=== PATIENT | male | born 1965 | race Caucasian/White ===

== ENCOUNTER 2019-03-27 12:04 | Outpatient (RCR) | payer MEDICAID, SELFPAY ==
[2019-03-27 12:36] LABS: Basophils % 0.5 %; Eosinophils # 0.1 10^3/uL (0.0-0.8); Eosinophils % 2.5 %; Hemoglobin 14.1 g/dL (11.7-16.6); Lymphocytes # 0.7 10^3/uL (0.8-4.8); Lymphocytes % 15.2 %; Mean Corpuscular HGB Conc 33.6 g/dL (30.0-36.0); Mean Corpuscular Hemoglobin 28.3 pg (28.0-34.0); Mean Corpuscular Volume 84.2 fL (80-94); Mean Platelet Volume 9.2 fL (7.4-10.4); Monocytes # 0.5 10^3/uL (0.2-0.9); Monocytes % 11.8 %; Neutrophils # 3.1 10^3/uL (1.8-7.7); Neutrophils % 69.8 %; Nucleated Red Blood Cells % 0 %; Platelet Count 267 10^3/cmm (130-400); Red Blood Count 4.99 10^6/uL (4.1-5.3); Red Cell Distribution Width 11.9 % (12.1-15.1); White Blood Count 4.4 10^3/uL (4.0-10.0)
[2019-03-27 12:56] LABS: Alanine Aminotransferase 26 U/L (0-41); Albumin Level 4.4 g/dL (3.5-5.2); Alkaline Phosphatase 135 IU/L (40-130); Anion Gap 13.4 (5-19); Aspartate Amino Transferase 24 U/L (0-40); Blood Urea Nitrogen 22 mg/dL (6-20); Calcium 9.8 mg/Dl (8.6-10.0); Carbon Dioxide 28 mmol/L (22-29); Chloride 101 mmol/L (98-107); Ferritin 514 ng/mL (30-400); Glomerular Filtration Rate 100.7 mL/min (90-130); Glucose 113 mg/dL (74-109); Iron 72 ug/dL (59-158); Lactate Dehydrogenase 203 U/L (135-225); Potassium 4.4 mmol/L (3.5-5.1); Sodium 138 mmol/L (136-145); Total Bilirubin 0.4 mg/dL (0.15-1.2); Total Iron Binding Capacity 240 mg/dL; Total Protein 6.4 g/dL (6.6-8.7); Unsaturated Iron Binding 168 ug/dL (112-347)
[2019-03-27 15:41] LABS: Thyroid Stimulating Hormone 1.85 uIU/mL (0.27-4.20); Vitamin B12 432 pg/mL (232-1245)
[2019-03-27 16:58] LABS: Erythrocyte Sedimentation Rate 12 mm/hr (0-10)
--- NOTE | 2019-04-02 10:42 | ONC FU_ITS ---
Dr. Stubbs Patient Follow-Up Note Patient: Kannan London Unit #: [id number]: 1965 Dicatated By: Leonard Stubbs M.D.Date of Visit:Mar 27, 2019 Onc Med Follow-up/Prog Note Chief Complaint: Lymphoma. 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 He had presented in July 2017 with a several month history of increasing fatigue, shortness of breath, dizziness, and muscle cramping. He was found to be severely anemic, hemoglobin 5.6 g. He also was reported to be mildly neutropenic, and his LDH level was slightly elevated at 278 U/L. He was admitted to the hospital and transfused packed red blood cells. His abdominal ultrasound showed enlarged spleen measuring 17.8 cm. There was no lymphadenopathy noted. His further evaluation included protein electrophoresis which showed IgM monoclonal gammopathy quantitating at 1.13 g/dL. He underwent bone marrow aspiration/biopsy on 08/24/2017. The aspirate was dry. The biopsy showed diffuse involvement by small round to oval lymphocytes with scant cytoplasm, consistent with B cell lymphoma. By IHC the neoplastic cells were positive for Bcl-2 and CD20. They were negative for Bcl-6, CD10, CD23. CD68, cyclin-D1, and Sox-11. The Ki-67 proliferative index was low. A peripheral blood flow cytometry study showed B cell chronic lymphoproliferative disorder of small size, negative for CD5, CD10, and CD11c, and positive for CD19, CD20, and CD22. A few were CD23 positive. There were positive for kappa light chain. Overall, the findings were felt most consistent with low-grade B-cell lymphoma of small size, favoring splenic lymphoma with villous lymphocytes. He had further staging with PET/CT on 09/13/2017. It showed a few scattered lymph nodes in the neck, axillary regions, retroperitoneum, pelvis, and inguinal regions, none with increased activity. His further laboratory evaluation included negative serology for HIV, hepatitis B, and hepatitis C. He had a follow-up visit with Dr. Roman on 09/15/2017. He was recommended to undergo treatment with weekly rituximab for 8 weeks. After doing some his own research online, he requested a second opinion evaluation. Dr Stubbs had seen him initially on 10/20/2017. Ultimately he did agree to undergo treatment with rituximab. In the meantime, his repeat CBC on 10/27/2017 showed his hemoglobin back down to 6.3 g, and he was given another transfusion of 2 units of PRBC. On 11/09/2017 he began his first weekly infusion of Rituxan at 375 mg/m??? by IV infusion. He had a significant reaction during the infusion, including fever and severe chills and shaking. The chills resolved with IV Demerol, and he was able to complete the infusion. He was given premedication with 60 mg of Solu-Medrol IV prior to is week 2 rituximab on 11/16/2017. He had no acute reaction, but he subsequently developed significant back pain and other symptoms. His week 3 treatment was delayed, as his blood counts had dropped significantly, including a decrease in the hemoglobin level to 5.6 g. He was transfused 3 units of PRBC. He continued with his 3rd dose of rituximab on 11/30/2017. He was premedicated with 30 mg of Solu-Medrol. He had a mild infusion reaction, which resolved with IV Demerol. He was able to continue with week 4 rituximab on 12/07/2017 and with week 5 treatment on 12/14/2017. At that point his hemoglobin had dropped to 7.3 g, and I did arrange for a transfusion of PRBC the following day. He was still having chills and shaking, but with the shaking predominantly in his right arm. He eventually was able to complete the transfusion and the shaking was able to be controlled with a combination of Demerol and Ativan. He was then seen for followup on 12/21/2017 and at that point I opted to put his treatment on hold. During his subsequent follow-up he continued to have moderately severe anemia and mild thrombocytopenia, and he also continued to have significant fatigue. We were finally able to get him approved for Medicaid in March. He then had restaging PET/CT on 04/29/2018. It showed prominent multiple lymph nodes in the head/neck region, bilateral axilla, and abdominal/retroperitoneal territories with low-grade activity, consistent with viable lymphoma. The largest measured up to 1.8 cm. There was also splenomegaly with uptake consistent with splenic infiltration. Repeat bone marrow aspiration/biopsy on 05/04/2018 showed packed bone marrow with almost complete effacement by a small lymphocyte proliferation. Flow cytometry showed 21% clonal B cells which with lack of CD5 and CD10 and with CD19 and CD20 both moderately positive. HLA-DR was moderately positive, as was kappa CD19. By IHC the malignant cells were positive for CD20 and BCL-2. CD5 and CD10 were predominantly negative. BCL-6 and cyclin D1 also were negative. The findings were felt to be consistent with low-grade B-cell lymphoma of small size with the differential including splenic lymphoma with villous lymphocytes, lymphoplasmacytic B-cell lymphoma, and marginal zone lymphoma. His repeat laboratory studies from 05/24/2018 showed hemoglobin down to 6.4 g with white blood cell count 4500 and platelet count 99,000. The differential showed 40% neutrophils, 52% lymphocytes, 5% monocytes, and 1% eosinophils. Sedimentation rate was greater than 120 mm/hour. His chem profile showed normal renal function with BUN 15 and creatinine 1.0 mg/dL. The liver enzymes were normal. LDH was mildly elevated at 253/225 U/L. The protein electrophoresis reported the total protein was 6.8, albumin was 3.3, alpha-1???globulin was 0.5, alpha???2???globulin 0.8, that it globulin 0.5, gamma globulin 0.5, ABD PRO was 1.1. The SPEP, and was restricted band (M???spike) migrating into the beta 2 region. Immunofixation reported IgM Monoclonal band present. With the drop in the hemoglobin, he was given a transfusion of 2 units of PRBC. In June 2018 he was seen by Dr. Sabino Guadalupe at [facility] for a second opinion evaluation. He then underwent left axillary lymph node biopsy on 07/24/2018. 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 With those findings, he was recommended to undergo a course of treatment with bendamustine/rituximab. His medical history is otherwise significant primarily for bipolar disorder and associated depression. He apparently has had evidence of pulmonary granulomas. His only prior surgery was a vasectomy. He had smoked for a short time in college, and he also had some alcohol use during that time. He has had none since then. INTERIM HISTORY: He began cycle 1 of bendamustine/rituximab on 09/26/2018. He experienced no acute toxicity with the initial infusion of rituximab. He then slept for the next 3 days. He thinks that may have been steroid related. He had no fever or chills, but he did have 3 or 4 drenching night sweats. At his scheduled 4-week follow-up visit he was feeling a little better, though his hemoglobin was still low at 8.4 g. His white blood cell count was still low at 2400 with ANC 1800, and his treatment was put on hold. As of his follow-up visit on 12/19/2018 his hemoglobin up to 12 g, but with no significant improvement in the white blood cell count. at that point he had developed significant neuropathy symptoms in his hands and feet. As there was no indication of progression of the lymphoma, I opted to just continue observation/expectant management. He is seen for a follow-up visit. He continues to complain that he has poor energy. He is working, but he is having to adjust his work schedule, and he has to take naps every day. His appetite is better. He has gained more weight. He has had fever recently with a dental infection, but he is seeing a dentist now to get that taken care of. He also has had a head cold. He has just occasional cough. He does not complain of shortness of breath or chest pain. He is not having any night sweating. He has developed fairly generalized joint pain, and he continues to have significant neuropathy in his hands and feet. He thinks it has continued to gradually worsen. Medications: Acetaminophen Extra Strength 1 Tablet (of 500 mg) Oral PRN, Depakote 1 Tablet (of 500 mg) Tablet, enteric coated Oral b.i.d., Ibuprofen 2 Tablet (of 200 mg) Oral t.i.d. PRN, Wellbutrin 1 Tablet (of 75 mg) Oral daily Allergies: Mitchell Review of Systems: Constitutional - His energy is not good. He is working, but he has had to adjust his work schedule, and he has to take naps. His appetite is good. He has gained more weight. He recently had fever with a dental infection. He is not having night sweating. ECOG score is 1, ENMT - He has recently had a head cold. He still has sore mouth. No sore throat or difficulty swallowing, Hematologic/Lymphatic - No abnormal bruising or bleeding, Respiratory - No shortness of breath. He has occasional cough. No pleuritic pain or hemoptysis, Cardiovascular - No angina pain. No palpitations, Gastrointestinal - He had nausea on one occasion. No heartburn or acid reflux. His bowel function has been better since he stopped drinking coffee. No blood in the stool or black stools, Genitourinary (M) - No dysuria or hematuria. No urinary frequency. No urgency or incontinence, Musculoskeletal - He has fairly generalized joint pain, Integumentary - No skin complications, Neurologic - He has had some headaches. No dizziness. He has numbness and tingling in his hands and feet, Psychiatric - He has bipolar disorder. He does have some depression. He is managing it adequately. He has been sleeping better. Vital Signs: Performed on Mar 27, 2019 13:46 Height - 70.50 in Weight - 213.0 lbs (HIGH) BSA - 2.16 sq.m BMI - 30.13 (HIGH) Temperature - 97.9 F (LOW) Pulse - 57 /min (LOW) Respiration - 18 /min BP - 157/79 mm(hg) (HIGH) O2 Sat - 98 % Pain - 3 Physical Examination: Constitutional - He looks pretty good generally, Eyes - Sclerae nonicteric. Conjunctivae clear, ENMT - No lesions noted in the oral cavity, Hematologic/Lymphatic - No cervical, clavicular, or axillary adenopathy, Respiratory - Lungs are clear with good air movement bilaterally, Cardiovascular - Heart rhythm is regular. There is a II/ systolic murmur. There is no gallop or rub noted, Abdomen - Soft. Liver is not enlarged. Spleen is not palpable. There is no abdominal mass or ascites noted. There is no inguinal adenopathy noted, Extremities - No edema. Pedal pulses are palpable bilaterally, Neurologic - No focal neurologic deficits noted. Lab/Imaging: Test performed on Dec 18, 2018 09:10 Ferritin 551.0 ng/ml Iron 66 ug/dL % Iron Saturation 29.8 % Test performed on Dec 11, 2018 09:10 WBC 2.4 /cmm RBC 3.79 10 6/cmm HGB 11.7 g/dl HCT 35.2 % MCV 92.8 /cmm MCH 30.9 pg MCHC 33.3 g/dl RDW 15.0 % Platelet Count 170 10 3/uL MPV 7.3 fl Neutrophils 1.6 10 3/cmm Lymphocytes 0.7 10 3/cmm Monocytes 0.1 10 3/cmm Neutrophil % 68.2 % Lymphocyte % 28.2 % Monocyte % 3.6 % Test performed on Nov 21, 2018 09:30 LDH (Total) 275 U/L Sodium 140 mmol/L Potassium 4.2 mmol/L Chloride 103 mmol/L CO2 26 mmol/L Anion Gap 15.2 BUN 16 mg/dL Creatinine 0.8 mg/dL Cr Clearance (Est) 134.2300 mL/min eGFR 100.7 mL/min Glucose 125 mg/dl Calcium 9.1 mg/dL Protein, Total 6.9 g/dL Albumin 4.5 g/dL Globulin 2.4 gm/dL Bilirubin, Total 0.5 mg/dL ALT (SGPT) 21 U/L AST (SGOT) 29 U/L Alkaline Phosphatase 131 U/L Eosinophils 0.0 10 3/cmm Basophils 0.0 10 3/cmm Eosinophil % 0.6 % Basophils % 0.8 % Impression: 1. 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 He had associated IgM monoclonal gammopathy,splenomegaly, and mild peripheral lymphadenopathy. 2. He had associated anemia, severe enough to require transfusion. 3. His medical history is otherwise significant for bipolar disorder with associated depression. He began treatment with weekly rituximab in October 2017. Between 11/09/2017 and 12/14/2017 he completed a total of 5 infusions of rituximab. It was stopped at that point because of multiple toxicities with it, including severe chills and shaking, fever, back pain, and persistent pancytopenia. Overall, he tolerated it very poorly, and there was no evidence of response or clinical benefit. His restaging PET/CT on 04/29/2018 showed prominent lymph nodes in multiple areas with low grade activity consistent with viable lymphoma. Also noted was splenomegaly with uptake consistent with splenic infiltration. Repeat bone marrow aspiration/biopsy on 05/04/2018 showed packed bone marrow with almost complete effacement by small lymphocyte proliferation. The findings were consistent with low-grade B-cell lymphoma small size, positive for CD19 and CD20, predominantly negative for CD5 and CD10, and negative for cyclin D1. In June 2018 he was seen at [facility] for a second opinion evaluation. He then underwent left axillary lymph node biopsy on 07/24/2018. Pathology was consistent with marginal zone lymphoma. With that finding, he was recommended to undergo a course of treatment with bendamustine/rituximab. He began cycle 1 of bendamustine/rituximab 09/26/2018. Experienced multiple side effects, though overall the treatment was tolerable. At his 4-week follow-up visit he was still moderately anemic. His treatment was put on hold due to neutropenia. During subsequent follow-up, there has been significant improvement in the blood counts. At this point he continues to have moderately severe neutropenia, but his hemoglobin is back up to normal at 14 g, and his platelet count also is normal. Unfortunately, he continues to have significant symptoms including fatigue, generalized joint pain, and peripheral neuropathy. I have to assume this is treatment related, though certainly unusual in association with bendamustine/Rituxan, particularly with just one cycle. Plan: He will continue on observation/symptomatic management. I have recommended a trial of therapy with gabapentin. He has been reluctant to take medication, but he indicates he is willing to try it at a low dosage. He will continue to take ibuprofen for the joint pain. I will see him again in 3 months, or sooner as needed. Signed By: Leonard Stubbs M.D. <<Signature on File>>
== END 2019-04-20 23:59 | disposition home or self-care (01) ==
LOC: ONCMED 12:04
PROVIDERS: Family Provider Family Medicine; PCP Family Medicine; Visit Provider Internal Medicine Medical Oncology
DX: C83.04 Small cell B-cell lymphoma, lymph nodes of axilla and upper limb (principal); R53.83 Other fatigue; G62.9 Polyneuropathy, unspecified; F32.9 Major depressive disorder, single episode, unspecified; M25.50 Pain in unspecified joint; Z92.25 Personal history of immunosuppression therapy; Z87.891 Personal history of nicotine dependence
CPT/HCPCS: 36415; 80053; 82607; 82728; 83540; 83550; 83615; 84443; 85025; 85651; 99214

== ENCOUNTER 2019-05-29 09:10 | Outpatient (CLI) | payer MEDICAID, SELFPAY ==
[2019-05-29 16:56] LABS: Alanine Aminotransferase 27 U/L (0-41); Albumin Level 4.4 g/dL (3.5-5.2); Alkaline Phosphatase 116 IU/L (40-130); Anion Gap 19.5 (5-19); Blood Urea Nitrogen 18 mg/dL (6-20); Calcium 10.2 mg/dL (8.5-10.5); Carbon Dioxide 28 mmol/L (22-29); Chloride 100 mmol/L (98-107); Globulin 2.3 g/dL (1.3-4.6); Glomerular Filtration Rate 100.7 mL/min (90-130); Glucose 46 mg/dL (65-115); Osmolality Calculated 292 mOsm/kg (285-295); Potassium 3.5 mmol/L (3.5-5.1); Sodium 144 mmol/L (136-145); Total Bilirubin 0.5 mg/dL (0.15-1.2); Total Protein 6.7 g/dL (6.6-8.7)
[2019-05-29 18:19] LABS: Erythrocyte Sedimentation Rate 9 mm/hr (0-10)
[2019-05-29 20:13] LABS: Aspartate Amino Transferase 28 U/L (0-40)
[2019-05-29 20:39] LABS: Lactate Dehydrogenase 338 U/L (135-225)
== END 2019-05-29 09:11 | disposition home or self-care (01) ==
LOC: ONCMED 16:23
PROVIDERS: Family Provider Family Medicine; PCP Family Medicine; Visit Provider Internal Medicine Medical Oncology
DX: C85.90 Non-Hodgkin lymphoma, unspecified, unspecified site (principal)
CPT/HCPCS: 80053; 83615; 85651

== ENCOUNTER 2019-05-30 08:24 | Outpatient (CLI) | payer MEDICAID, SELFPAY ==
[2019-05-30 09:08] LABS: Basophils % 0.5 %; Eosinophils # 0.1 10^3/uL (0.0-0.8); Hematocrit 47.5 % (42.0-52.0); Hemoglobin 14.7 g/dL (11.7-16.6); Lymphocytes # 0.6 10^3/uL (0.8-4.8); Lymphocytes % 9.5 %; Mean Corpuscular HGB Conc 30.9 g/dL (30.0-36.0); Mean Corpuscular Hemoglobin 28.9 pg (28.0-34.0); Mean Corpuscular Volume 93.5 fL (80-94); Mean Platelet Volume 10.2 fL (7.4-10.4); Monocytes # 0.7 10^3/uL (0.2-0.9); Monocytes % 11.8 %; Neutrophils # 4.6 10^3/uL (1.8-7.7); Neutrophils % 75.9 %; Nucleated Red Blood Cells % 0 %; Platelet Count 206 10^3/cmm (130-400); Red Blood Count 5.08 10^6/uL (4.1-5.3); Red Cell Distribution Width 13.7 % (12.1-15.1); White Blood Count 6.1 10^3/uL (4.0-10.0)
--- NOTE | 2019-05-30 10:10 | ONC FU_ITS ---
Dr. Stubbs Patient Follow-Up Note Patient: Kannan London Unit #: [id number]: 1965 Dicatated By: Leonard Stubbs M.D.Date of Visit:May 30, 2019 Onc Med Follow-up/Prog Note Chief Complaint: Lymphoma. 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 He had presented in July 2017 with a several month history of increasing fatigue, shortness of breath, dizziness, and muscle cramping. He was found to be severely anemic, hemoglobin 5.6 g. He also was reported to be mildly neutropenic, and his LDH level was slightly elevated at 278 U/L. He was admitted to the hospital and transfused packed red blood cells. His abdominal ultrasound showed enlarged spleen measuring 17.8 cm. There was no lymphadenopathy noted. His further evaluation included protein electrophoresis which showed IgM monoclonal gammopathy quantitating at 1.13 g/dL. He underwent bone marrow aspiration/biopsy on 08/24/2017. The aspirate was dry. The biopsy showed diffuse involvement by small round to oval lymphocytes with scant cytoplasm, consistent with B cell lymphoma. By IHC the neoplastic cells were positive for Bcl-2 and CD20. They were negative for Bcl-6, CD10, CD23. CD68, cyclin-D1, and Sox-11. The Ki-67 proliferative index was low. A peripheral blood flow cytometry study showed B cell chronic lymphoproliferative disorder of small size, negative for CD5, CD10, and CD11c, and positive for CD19, CD20, and CD22. A few were CD23 positive. There were positive for kappa light chain. Overall, the findings were felt most consistent with low-grade B-cell lymphoma of small size, favoring splenic lymphoma with villous lymphocytes. He had further staging with PET/CT on 09/13/2017. It showed a few scattered lymph nodes in the neck, axillary regions, retroperitoneum, pelvis, and inguinal regions, none with increased activity. His further laboratory evaluation included negative serology for HIV, hepatitis B, and hepatitis C. He had a follow-up visit with Dr. Roman on 09/15/2017. He was recommended to undergo treatment with weekly rituximab for 8 weeks. After doing some his own research online, he requested a second opinion evaluation. Dr Stubbs had seen him initially on 10/20/2017. Ultimately he did agree to undergo treatment with rituximab. In the meantime, his repeat CBC on 10/27/2017 showed his hemoglobin back down to 6.3 g, and he was given another transfusion of 2 units of PRBC. On 11/09/2017 he began his first weekly infusion of Rituxan at 375 mg/m??? by IV infusion. He had a significant reaction during the infusion, including fever and severe chills and shaking. The chills resolved with IV Demerol, and he was able to complete the infusion. He was given premedication with 60 mg of Solu-Medrol IV prior to is week 2 rituximab on 11/16/2017. He had no acute reaction, but he subsequently developed significant back pain and other symptoms. His week 3 treatment was delayed, as his blood counts had dropped significantly, including a decrease in the hemoglobin level to 5.6 g. He was transfused 3 units of PRBC. He continued with his 3rd dose of rituximab on 11/30/2017. He was premedicated with 30 mg of Solu-Medrol. He had a mild infusion reaction, which resolved with IV Demerol. He was able to continue with week 4 rituximab on 12/07/2017 and with week 5 treatment on 12/14/2017. At that point his hemoglobin had dropped to 7.3 g, and I did arrange for a transfusion of PRBC the following day. He was still having chills and shaking, but with the shaking predominantly in his right arm. He eventually was able to complete the transfusion and the shaking was able to be controlled with a combination of Demerol and Ativan. He was then seen for followup on 12/21/2017 and at that point I opted to put his treatment on hold. During his subsequent follow-up he continued to have moderately severe anemia and mild thrombocytopenia, and he also continued to have significant fatigue. We were finally able to get him approved for Medicaid in March. He then had restaging PET/CT on 04/29/2018. It showed prominent multiple lymph nodes in the head/neck region, bilateral axilla, and abdominal/retroperitoneal territories with low-grade activity, consistent with viable lymphoma. The largest measured up to 1.8 cm. There was also splenomegaly with uptake consistent with splenic infiltration. Repeat bone marrow aspiration/biopsy on 05/04/2018 showed packed bone marrow with almost complete effacement by a small lymphocyte proliferation. Flow cytometry showed 21% clonal B cells which with lack of CD5 and CD10 and with CD19 and CD20 both moderately positive. HLA-DR was moderately positive, as was kappa CD19. By IHC the malignant cells were positive for CD20 and BCL-2. CD5 and CD10 were predominantly negative. BCL-6 and cyclin D1 also were negative. The findings were felt to be consistent with low-grade B-cell lymphoma of small size with the differential including splenic lymphoma with villous lymphocytes, lymphoplasmacytic B-cell lymphoma, and marginal zone lymphoma. His repeat laboratory studies from 05/24/2018 showed hemoglobin down to 6.4 g with white blood cell count 4500 and platelet count 99,000. The differential showed 40% neutrophils, 52% lymphocytes, 5% monocytes, and 1% eosinophils. Sedimentation rate was greater than 120 mm/hour. His chem profile showed normal renal function with BUN 15 and creatinine 1.0 mg/dL. The liver enzymes were normal. LDH was mildly elevated at 253/225 U/L. The protein electrophoresis reported the total protein was 6.8, albumin was 3.3, alpha-1???globulin was 0.5, alpha???2???globulin 0.8, that it globulin 0.5, gamma globulin 0.5, ABD PRO was 1.1. The SPEP, and was restricted band (M???spike) migrating into the beta 2 region. Immunofixation reported IgM Monoclonal band present. With the drop in the hemoglobin, he was given a transfusion of 2 units of PRBC. In June 2018 he was seen by Dr. Sabino Guadalupe at [facility] for a second opinion evaluation. He then underwent left axillary lymph node biopsy on 07/24/2018. 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 With those findings, he was recommended to undergo a course of treatment with bendamustine/rituximab. His medical history is otherwise significant primarily for bipolar disorder and associated depression. He apparently has had evidence of pulmonary granulomas. His only prior surgery was a vasectomy. He had smoked for a short time in college, and he also had some alcohol use during that time. He has had none since then. INTERIM HISTORY: He began cycle 1 of bendamustine/rituximab on 09/26/2018. He experienced no acute toxicity with the initial infusion of rituximab. He then slept for the next 3 days. He thinks that may have been steroid related. He had no fever or chills, but he did have 3 or 4 drenching night sweats. At his scheduled 4-week follow-up visit he was feeling a little better, though his hemoglobin was still low at 8.4 g. His white blood cell count was still low at 2400 with ANC 1800, and his treatment was put on hold. As of his follow-up visit on 12/19/2018 his hemoglobin up to 12 g, but with no significant improvement in the white blood cell count. At that point he had developed significant neuropathy symptoms in his hands and feet. As there was no indication of progression of the lymphoma, I had opted to just continue observation/expectant management. He is seen for a follow-up visit. He has not been feeling good. Approximately 10 days ago he had recurrence of night sweating, and he noticed some new lymph nodes in the neck area. He also recently developed cold symptoms including low-grade fever and sore throat. 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 His energy has trailed off the last 3 to 4 days. His ECOG score is 1. Since his last visit, he has started taking Abilify, and he has had increased appetite and significant weight gain. With the weight gain he has noticed some worsening of his neuropathy symptoms. Recently he also started having some muscle cramping in his legs again. He does not complain of shortness of breath or chest pain. He had one recent episode of nausea. Bowel function has been okay. His urination has been more frequent since he started drinking coffee again. He has had some joint pain, mainly in the knees and to a lesser extent in the hands. He has occasional headache. He does not complain of dizziness. His depression/irritability have improved with the Abilify. He still has a fragmented sleep pattern. Medications: Acetaminophen Extra Strength 1 Tablet (of 500 mg) Oral PRN, ARIPiprazole 1 Tablet (of 10 mg) Oral daily, Depakote 1 Tablet (of 500 mg) Tablet, enteric coated Oral b.i.d., Ibuprofen 2 Tablet (of 200 mg) Oral t.i.d. PRN, Wellbutrin 1 Tablet (of 75 mg) Oral daily Allergies: Mitchell Review of Systems: Constitutional - His energy was okay but has decreased over the last 3-4 days. Appetite is good and weight is up about 16 pounds from last visit. He had fever a few days ago. He had a recurrence of night sweating about 10 days ago. ECOG score is 1, ENMT - He has sinus congestion/drainage. No mouth sores. He has had sore throat. No difficulty swallowing, Hematologic/Lymphatic - He has been bruising a little more, Respiratory - No shortness of breath. He has cough associated with dust exposure. No pleuritic pain or hemoptysis, Cardiovascular - No angina pain. No palpitations, Gastrointestinal - He had one recent epidsoe of nausea. No heartburn or acid reflux. No diarrhea or constipation. No blood in the stool or black stools, Genitourinary (M) - No dysuria or hematuria. He has more frequent urination since he started drinking coffee again. No urgency or incontinence, Musculoskeletal - He is having increased arthritis pain, mainly in the knees and also some in his hands, Integumentary - No skin complications, Neurologic - No headache or dizziness. He has neuropathy in his legs/feet and in both hands, Psychiatric - He has anxiety/depression. He is taking Abilify that has significantly helped his psychiatric symptoms. His sleep pattern is inconsistent. Vital Signs: Performed on May 30, 2019 08:31 Height - 70.50 in Weight - 229 lbs (HIGH) BSA - 2.22 sq.m BMI - 32.39 (HIGH) Temperature - 97.6 F (LOW) Pulse - 53 /min (LOW) Respiration - 18 /min BP - 142/63 mm(hg) (HIGH) O2 Sat - 96 % Pain - 1 Physical Examination: Constitutional - He looks pretty good generally, Eyes - Sclerae nonicteric. Conjunctivae clear, ENMT - No lesions noted in the oral cavity, Hematologic/Lymphatic - There are small posterior cervical nodes bilaterally. There is no clavicular or axillary adenopathy noted, Respiratory - Lungs are clear with good air movement bilaterally, Cardiovascular - Heart rhythm is regular. There is a II/ systolic murmur. There is no gallop or rub noted, Abdomen - Soft. Liver is not enlarged. Spleen is not palpable. There is no abdominal mass or ascites noted. There is no inguinal adenopathy noted, Extremities - No edema. He has good dorsalis pedis pulsese bilaterally, Neurologic - No focal neurologic deficits noted. Lab/Imaging: CBC shows hemoglobin 14.7 g, white blood cell count 6100, and platelet count 206,000. Sed rate is normal at 9 mm/hour. Comprehensive metabolic profile is unremarkable except for low glucose at 46 mg/dL. Liver enzymes are normal. LDH is elevated at 338/225 U/L. Impression: 1. 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 He had associated IgM monoclonal gammopathy,splenomegaly, and mild peripheral lymphadenopathy. 2. He had associated anemia, severe enough to require transfusion. 3. His medical history is otherwise significant for bipolar disorder with associated depression. He began treatment with weekly rituximab in October 2017. Between 11/09/2017 and 12/14/2017 he completed a total of 5 infusions of rituximab. It was stopped at that point because of multiple toxicities with it, including severe chills and shaking, fever, back pain, and persistent pancytopenia. Overall, he tolerated it very poorly, and there was no evidence of response or clinical benefit. His restaging PET/CT on 04/29/2018 showed prominent lymph nodes in multiple areas with low grade activity consistent with viable lymphoma. Also noted was splenomegaly with uptake consistent with splenic infiltration. Repeat bone marrow aspiration/biopsy on 05/04/2018 showed packed bone marrow with almost complete effacement by small lymphocyte proliferation. The findings were consistent with low-grade B-cell lymphoma small size, positive for CD19 and CD20, predominantly negative for CD5 and CD10, and negative for cyclin D1. In June 2018 he was seen at [facility] for a second opinion evaluation. He then underwent left axillary lymph node biopsy on 07/24/2018. Pathology was consistent with marginal zone lymphoma. With that finding, he was recommended to undergo a course of treatment with bendamustine/rituximab. He began cycle 1 of bendamustine/rituximab 09/26/2018. Experienced multiple side effects, though overall the treatment was tolerable. At his 4-week follow-up visit he was still moderately anemic. His treatment was put on hold due to neutropenia. During subsequent follow-up, there was significant improvement in the blood counts. Initially he continued to have moderately severe neutropenia, but as of March 2019 is white blood cell count was back up to 4400 with hemoglobin as of March 2019 the neutrophil count was up to 3100 with hemoglobin normal at 14.1 g and platelet count normal at 267,000. Unfortunately, he continued to have significant symptoms including fatigue, generalized joint pain, and peripheral neuropathy. I assumed this was treatment related, though certainly unusual in association with bendamustine/Rituxan, particularly with just one cycle. He presents now with recurrence of night sweating in association with some new cervical lymphadenopathy. His blood count is normal, but there has been an increase in his LDH level. He continues to have fatigue and ongoing problems with peripheral neuropathy. Plan: He will be scheduled for a restaging PET/CT. He will have further evaluation as indicated. Signed By: Leonard Stubbs M.D. <<Signature on File>>
== END 2019-05-30 08:25 | disposition home or self-care (01) ==
LOC: ONCMED 08:26
PROVIDERS: Family Provider Family Medicine; PCP Family Medicine; Visit Provider Internal Medicine Medical Oncology
DX: C85.90 Non-Hodgkin lymphoma, unspecified, unspecified site (principal)
CPT/HCPCS: 85025; 99214

== ENCOUNTER 2019-09-10 12:07 | Outpatient (CLI) | payer MEDICAID, SELFPAY ==
[2019-09-10 12:35] LABS: Basophils % 0.2 %; Eosinophils # 0.1 10^3/uL (0.0-0.8); Eosinophils % 1.9 %; Hemoglobin 14.4 g/dL (11.7-16.6); Lymphocytes # 0.8 10^3/uL (0.8-4.8); Lymphocytes % 16.3 %; Mean Corpuscular HGB Conc 33.5 g/dL (30.0-36.0); Mean Corpuscular Hemoglobin 29.1 pg (28.0-34.0); Mean Corpuscular Volume 86.9 fL (80-94); Mean Platelet Volume 9.7 fL (7.4-10.4); Monocytes # 0.7 10^3/uL (0.2-0.9); Monocytes % 13.8 %; Neutrophils # 3.3 10^3/uL (1.8-7.7); Neutrophils % 67.6 %; Nucleated Red Blood Cells % 0 %; Platelet Count 198 10^3/cmm (130-400); Red Blood Count 4.95 10^6/uL (4.1-5.3); Red Cell Distribution Width 12.1 % (12.1-15.1); White Blood Count 4.8 10^3/uL (4.0-10.0)
[2019-09-10 12:56] LABS: Alanine Aminotransferase 26 U/L (0-41); Albumin Level 4.1 g/dL (3.5-5.2); Alkaline Phosphatase 99 IU/L (40-130); Anion Gap 14.3 (5-19); Aspartate Amino Transferase 22 U/L (0-40); Blood Urea Nitrogen 11 mg/dL (6-20); Calcium 9.2 mg/dL (8.5-10.5); Carbon Dioxide 27 mmol/L (22-29); Chloride 103 mmol/L (98-107); Globulin 2.5 g/dL (1.3-4.6); Glomerular Filtration Rate 87.6 mL/min (90-130); Glucose 95 mg/dL (65-115); Lactate Dehydrogenase 185 U/L (135-225); Osmolality Calculated 286 mOsm/kg (285-295); Potassium 4.3 mmol/L (3.5-5.1); Sodium 140 mmol/L (136-145); Total Bilirubin 0.7 mg/dL (0.15-1.2); Total Protein 6.6 g/dL (6.6-8.7)
[2019-09-12 16:40] LABS: ABNORMAL PROTEIN BAND 1 0.4 g/dL (NONE DETECTED); ALBUMIN 3.7 g/dL (3.8-4.8); ALPHA 1 GLOBULIN 0.3 g/dL (0.2-0.3); ALPHA 2 GLOBULIN 0.6 g/dL (0.5-0.9); BETA 1 GLOBULIN 0.4 g/dL (0.4-0.6); BETA 2 GLOBULIN 0.5 g/dL (0.2-0.5); GAMMA GLOBULIN 0.5 g/dL (0.8-1.7)
--- NOTE | 2019-09-14 06:31 | ONC FU_ITS ---
Dr. Stubbs Patient Follow-Up Note Patient: Kannan London Unit #: [id number]: 1965 Dicatated By: Leonard Stubbs M.D.Date of Visit:Sep 10, 2019 Onc Med Follow-up/Prog Note Chief Complaint: Lymphoma. 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 He had presented in July 2017 with a several month history of increasing fatigue, shortness of breath, dizziness, and muscle cramping. He was found to be severely anemic, hemoglobin 5.6 g. He also was reported to be mildly neutropenic, and his LDH level was slightly elevated at 278 U/L. He was admitted to the hospital and transfused packed red blood cells. His abdominal ultrasound showed enlarged spleen measuring 17.8 cm. There was no lymphadenopathy noted. His further evaluation included protein electrophoresis which showed IgM monoclonal gammopathy quantitating at 1.13 g/dL. He underwent bone marrow aspiration/biopsy on 08/24/2017. The aspirate was dry. The biopsy showed diffuse involvement by small round to oval lymphocytes with scant cytoplasm, consistent with B cell lymphoma. By IHC the neoplastic cells were positive for Bcl-2 and CD20. They were negative for Bcl-6, CD10, CD23. CD68, cyclin-D1, and Sox-11. The Ki-67 proliferative index was low. A peripheral blood flow cytometry study showed B cell chronic lymphoproliferative disorder of small size, negative for CD5, CD10, and CD11c, and positive for CD19, CD20, and CD22. A few were CD23 positive. There were positive for kappa light chain. Overall, the findings were felt most consistent with low-grade B-cell lymphoma of small size, favoring splenic lymphoma with villous lymphocytes. He had further staging with PET/CT on 09/13/2017. It showed a few scattered lymph nodes in the neck, axillary regions, retroperitoneum, pelvis, and inguinal regions, none with increased activity. His further laboratory evaluation included negative serology for HIV, hepatitis B, and hepatitis C. He had a follow-up visit with Dr. Roman on 09/15/2017. He was recommended to undergo treatment with weekly rituximab for 8 weeks. After doing some his own research online, he requested a second opinion evaluation. Dr Stubbs had seen him initially on 10/20/2017. Ultimately he did agree to undergo treatment with rituximab. In the meantime, his repeat CBC on 10/27/2017 showed his hemoglobin back down to 6.3 g, and he was given another transfusion of 2 units of PRBC. On 11/09/2017 he began his first weekly infusion of Rituxan at 375 mg/m??? by IV infusion. He had a significant reaction during the infusion, including fever and severe chills and shaking. The chills resolved with IV Demerol, and he was able to complete the infusion. He was given premedication with 60 mg of Solu-Medrol IV prior to is week 2 rituximab on 11/16/2017. He had no acute reaction, but he subsequently developed significant back pain and other symptoms. His week 3 treatment was delayed, as his blood counts had dropped significantly, including a decrease in the hemoglobin level to 5.6 g. He was transfused 3 units of PRBC. He continued with his 3rd dose of rituximab on 11/30/2017. He was premedicated with 30 mg of Solu-Medrol. He had a mild infusion reaction, which resolved with IV Demerol. He was able to continue with week 4 rituximab on 12/07/2017 and with week 5 treatment on 12/14/2017. At that point his hemoglobin had dropped to 7.3 g, and I did arrange for a transfusion of PRBC the following day. He was still having chills and shaking, but with the shaking predominantly in his right arm. He eventually was able to complete the transfusion and the shaking was able to be controlled with a combination of Demerol and Ativan. He was then seen for followup on 12/21/2017 and at that point I opted to put his treatment on hold. During his subsequent follow-up he continued to have moderately severe anemia and mild thrombocytopenia, and he also continued to have significant fatigue. We were finally able to get him approved for Medicaid in March. He then had restaging PET/CT on 04/29/2018. It showed prominent multiple lymph nodes in the head/neck region, bilateral axilla, and abdominal/retroperitoneal territories with low-grade activity, consistent with viable lymphoma. The largest measured up to 1.8 cm. There was also splenomegaly with uptake consistent with splenic infiltration. Repeat bone marrow aspiration/biopsy on 05/04/2018 showed packed bone marrow with almost complete effacement by a small lymphocyte proliferation. Flow cytometry showed 21% clonal B cells which with lack of CD5 and CD10 and with CD19 and CD20 both moderately positive. HLA-DR was moderately positive, as was kappa CD19. By IHC the malignant cells were positive for CD20 and BCL-2. CD5 and CD10 were predominantly negative. BCL-6 and cyclin D1 also were negative. The findings were felt to be consistent with low-grade B-cell lymphoma of small size with the differential including splenic lymphoma with villous lymphocytes, lymphoplasmacytic B-cell lymphoma, and marginal zone lymphoma. His repeat laboratory studies from 05/24/2018 showed hemoglobin down to 6.4 g with white blood cell count 4500 and platelet count 99,000. The differential showed 40% neutrophils, 52% lymphocytes, 5% monocytes, and 1% eosinophils. Sedimentation rate was greater than 120 mm/hour. His chem profile showed normal renal function with BUN 15 and creatinine 1.0 mg/dL. The liver enzymes were normal. LDH was mildly elevated at 253/225 U/L. The protein electrophoresis reported the total protein was 6.8, albumin was 3.3, alpha-1???globulin was 0.5, alpha???2???globulin 0.8, that it globulin 0.5, gamma globulin 0.5, ABD PRO was 1.1. The SPEP, and was restricted band (M???spike) migrating into the beta 2 region. Immunofixation reported IgM Monoclonal band present. With the drop in the hemoglobin, he was given a transfusion of 2 units of PRBC. In June 2018 he was seen by Dr. Sabino Guadalupe at [facility] for a second opinion evaluation. He then underwent left axillary lymph node biopsy on 07/24/2018. 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 With those findings, he was recommended to undergo a course of treatment with bendamustine/rituximab. His medical history is otherwise significant primarily for bipolar disorder and associated depression. He apparently has had evidence of pulmonary granulomas. His only prior surgery was a vasectomy. He had smoked for a short time in college, and he also had some alcohol use during that time. He has had none since then. INTERIM HISTORY: He began cycle 1 of bendamustine/rituximab on 09/26/2018. He experienced no acute toxicity with the initial infusion of rituximab. He then slept for the next 3 days. He thinks that may have been steroid related. He had no fever or chills, but he did have 3 or 4 drenching night sweats. At his scheduled 4-week follow-up visit he was feeling a little better, though his hemoglobin was still low at 8.4 g. His white blood cell count was still low at 2400 with ANC 1800, and his treatment was put on hold. As of his follow-up visit on 12/19/2018 his hemoglobin up to 12 g, but with no significant improvement in the white blood cell count. At that point he had developed significant neuropathy symptoms in his hands and feet. As there was no indication of progression of the lymphoma, I had opted to just continue observation/expectant management. During subsequent follow-up he had continued to have significant musculoskeletal pain and what appeared to be a complement ofneuropathypain. As of his follow-up visit in May 2019 there was no evidence of disease progression. He is seen for a follow-up visit. His main complaint is that the neuropathy is slowing him down, as the pain is significant enough to limit his activity. It does tend to vary from day today, and he is able to do light work, though he often has to pace himself. The pain is mainly in his hands and feet, but he also has some joint pain, including the elbows. He says that soaking in cold water helps the pain. He also gets some benefit with better hydration. His ECOG score is 1. He has good appetite. He has had significant weight gain, attributable to Abilify. He has no fever or night sweats. He does not complain of shortness of breath, cough, or chest pain. He currently has no GI complaints. He has noted improvement in both bowel and bladder function with the better hydration. He does not complain of headache or dizziness. He does not have numbness/paresthesia or other focal neurologic symptoms. Medications: Acetaminophen Extra Strength 2 Tablet (of 500 mg) Oral daily PRN, ARIPiprazole 1 Tablet (of 10 mg) Oral daily, Depakote 1 Tablet (of 500 mg) Tablet, enteric coated Oral b.i.d., Ibuprofen 2 Tablet (of 200 mg) Oral t.i.d. PRN, Wellbutrin 1 Tablet (of 75 mg) Oral daily Allergies: Mitchell Review of Systems: Constitutional - His energy comes and goes. He is able to work part-time, but he does have activity restrictions due to pain. His appetite is good and his weight is up nearly 12 pounds from last visit. No fever, night sweats, or hot flashes. ECOG score is 1, ENMT - No sinus congestion/drainage. No mouth sores. No sore throat or difficulty swallowing, Hematologic/Lymphatic - No abnormal bruising or bleeding, Respiratory - No shortness of breath. No cough. No pleuritic pain or hemoptysis, Cardiovascular - No angina pain. No palpitations, Gastrointestinal - No nausea or vomiting. No heartburn or acid reflux. He has had constipation, but his bowel function has improved with better hydration. No blood in the stool or black stools, Genitourinary (M) - No dysuria or hematuria. No urinary frequency. No urgency or incontinence, Musculoskeletal - He is having significant joint pain in his hands, feet, and elbows. He is also having neuropathic pain, Integumentary - No skin complications, Neurologic - No headache or dizziness. He has neuropathy pain, but no numbness or tingling and no other focal neurologic symptoms, Psychiatric - His anxiety/depression is doing better with Abilify. He has been sleeping better. He takes trazodone only as needed now. Vital Signs: Performed on Sep 10, 2019 13:38 Height - 70.50 in Weight - 241.2 lbs (HIGH) BSA - 2.27 sq.m BMI - 34.12 (HIGH) Temperature - 98.5 F Pulse - 55 /min (LOW) Respiration - 22 /min BP - 144/69 mm(hg) (HIGH) O2 Sat - 95 % (LOW) Pain - 4 Physical Examination: Constitutional - He looks pretty good generally. He has had noticeable weight gain, Eyes - Sclerae nonicteric. Conjunctivae clear, ENMT - No lesions noted in the oral cavity, Hematologic/Lymphatic - There are palpable right cervical nodes which are tender. There is no clavicular or axillary adenopathy noted, Respiratory - Lungs are clear with good air movement bilaterally, Cardiovascular - Heart rhythm is regular. There is a II/ systolic murmur. There is no gallop or rub noted, Abdomen - Soft. Liver is not enlarged. Spleen is not palpable. There is no abdominal mass or ascites noted. There is no inguinal adenopathy noted, Extremities - No edema, Integumentary - There is an inflammatory appearing follicular lesion in the right forehead area, Neurologic - No focal neurologic deficits noted. Lab/Imaging: Test performed on Sep 10, 2019 12:17 LDH (Total) 185 U/L Sodium 140 mmol/L Potassium 4.3 mmol/L Chloride 103 mmol/L CO2 27 mmol/L Anion Gap 14.3 BUN 11 mg/dL Creatinine 0.9 mg/dL Cr Clearance (Est) 143.51 mL/min eGFR 87.6 mL/min Glucose 95 mg/dL Calcium 9.2 mg/dL Protein, Total 6.6 g/dL Albumin 4.1 g/dL Globulin 2.5 g/dL Bilirubin, Total 0.7 mg/dL ALT (SGPT) 26 U/L AST (SGOT) 22 U/L Alkaline Phosphatase 99 IU/L WBC 4.8 10 3/uL RBC 4.95 10 6/uL HGB 14.4 g/dL HCT 43.0 % MCV 86.9 fL MCH 29.1 pg MCHC 33.5 g/dL RDW 12.1 % Platelet Count 198 10 3/cmm MPV 9.7 fL Neutrophils 3.3 10 3/uL Lymphocytes 0.8 10 3/uL Monocytes 0.7 10 3/uL Eosinophils 0.1 10 3/uL Basophils 0.0 10 3/uL Neutrophil % 67.6 % Lymphocyte % 16.3 % Monocyte % 13.8 % Eosinophil % 1.9 % Basophils % 0.2 % NRBC % 0 % Impression: 1. 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 He had associated IgM monoclonal gammopathy,splenomegaly, and mild peripheral lymphadenopathy. 2. He had associated anemia, severe enough to require transfusion. 3. His medical history is otherwise significant for bipolar disorder with associated depression. He began treatment with weekly rituximab in October 2017. Between 11/09/2017 and 12/14/2017 he completed a total of 5 infusions of rituximab. It was stopped at that point because of multiple toxicities with it, including severe chills and shaking, fever, back pain, and persistent pancytopenia. Overall, he tolerated it very poorly, and there was no evidence of response or clinical benefit. His restaging PET/CT on 04/29/2018 showed prominent lymph nodes in multiple areas with low grade activity consistent with viable lymphoma. Also noted was splenomegaly with uptake consistent with splenic infiltration. Repeat bone marrow aspiration/biopsy on 05/04/2018 showed packed bone marrow with almost complete effacement by small lymphocyte proliferation. The findings were consistent with low-grade B-cell lymphoma small size, positive for CD19 and CD20, predominantly negative for CD5 and CD10, and negative for cyclin D1. In June 2018 he was seen at [facility] for a second opinion evaluation. He then underwent left axillary lymph node biopsy on 07/24/2018. Pathology was consistent with marginal zone lymphoma. With that finding, he was recommended to undergo a course of treatment with bendamustine/rituximab. He began cycle 1 of bendamustine/rituximab 09/26/2018. Experienced multiple side effects, though overall the treatment was tolerable. At his 4-week follow-up visit he was still moderately anemic. His treatment was put on hold due to neutropenia. During subsequent follow-up, there was significant improvement in the blood counts. Initially he continued to have moderately severe neutropenia, but as of March 2019 is white blood cell count was back up to 4400 with hemoglobin as of March 2019 the neutrophil count was up to 3100 with hemoglobin normal at 14.1 g and platelet count normal at 267,000. Unfortunately, he continued to have significant symptoms including fatigue, generalized joint pain, and peripheral neuropathy. I assumed this was treatment related, though certainly unusual in association with bendamustine/Rituxan, particularly with just one cycle. During follow-up he has had ongoing problems with neuropathy pain, and he also has some component of musculoskeletal pain. He has somewhat limited activity tolerance. He currently has some tender adenopathy in the right cervical area, which I suspect is reactive. There appears to be no evidence of progression of the lymphoma. Plan: He will continue observation/expectant management for the lymphoma. He will be given antibiotic coverage with Augmentin. I will see him again in 6 months. In the meantime, I will look into the availability of physical therapy for his neuropathy. Signed By: Leonard Stubbs M.D. <<Signature on File>>
== END 2019-09-10 12:08 | disposition home or self-care (01) ==
PROVIDERS: Visit Provider Internal Medicine Medical Oncology
DX: C83.09 Small cell B-cell lymphoma, extranodal and solid organ sites (principal); D70.1 Agranulocytosis secondary to cancer chemotherapy; T45.1X5A Adverse effect of antineoplastic and immunosuppressive drugs, initial encounter; D47.2 Monoclonal gammopathy; F32.9 Major depressive disorder, single episode, unspecified; G62.9 Polyneuropathy, unspecified; Z79.899 Other long term (current) drug therapy
CPT/HCPCS: 80053; 83615; 84155; 84165; 85025; 99214

== ENCOUNTER 2020-02-25 11:33 | Outpatient (CLI) | payer MEDICAID, SELFPAY ==
[2020-02-25 12:45] LABS: Basophils % 0.2 %; Eosinophils # 0.1 10^3/uL (0.0-0.8); Hematocrit 41.5 % (42.0-52.0); Hemoglobin 14.1 g/dL (11.7-16.6); Lymphocytes # 0.8 10^3/uL (0.8-4.8); Lymphocytes % 20.2 %; Mean Corpuscular Hemoglobin 30.1 pg (28.0-34.0); Mean Corpuscular Volume 88.7 fL (80-94); Mean Platelet Volume 9.5 fL (7.4-10.4); Monocytes # 0.5 10^3/uL (0.2-0.9); Monocytes % 12.3 %; Neutrophils # 2.64 10^3/uL (1.8-7.7); Neutrophils % 65.1 %; Nucleated Red Blood Cells % 0 %; Platelet Count 197 10^3/cmm (130-400); Red Blood Count 4.68 10^6/uL (4.1-5.3); Red Cell Distribution Width 12.7 % (12.1-15.1); White Blood Count 4.1 10^3/uL (4.0-10.0)
[2020-02-25 13:30] LABS: Alanine Aminotransferase 21 U/L (0-41); Alkaline Phosphatase 98 IU/L (40-130); Anion Gap 12.4 (5-19); Aspartate Amino Transferase 24 U/L (0-40); Blood Urea Nitrogen 16 mg/dL (6-20); Calcium 9.1 mg/dL (8.5-10.5); Carbon Dioxide 29 mmol/L (22-29); Chloride 105 mmol/L (98-107); Globulin 2.3 g/dL (1.3-4.6); Glomerular Filtration Rate 87.6 mL/min (90-130); Glucose 95 mg/dL (65-115); Lactate Dehydrogenase 183 U/L (135-225); Osmolality Calculated 295 mOsm/kg (285-295); Potassium 4.4 mmol/L (3.5-5.1); Sodium 142 mmol/L (136-145); Total Bilirubin 0.5 mg/dL (0.15-1.2); Total Protein 6.3 g/dL (6.6-8.7)
--- NOTE | 2020-02-26 07:34 | ONC FU_ITS ---
Dr. Stubbs Patient Follow-Up Note Patient: Kannan London Unit #: [id number]: 1965 Dicatated By: Leonard Stubbs M.D.Date of Visit:Feb 25, 2020 Onc Med Follow-up/Prog Note Chief Complaint: Lymphoma. 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 He had presented in July 2017 with a several month history of increasing fatigue, shortness of breath, dizziness, and muscle cramping. He was found to be severely anemic, hemoglobin 5.6 g. He also was reported to be mildly neutropenic, and his LDH level was slightly elevated at 278 U/L. He was admitted to the hospital and transfused packed red blood cells. His abdominal ultrasound showed enlarged spleen measuring 17.8 cm. There was no lymphadenopathy noted. His further evaluation included protein electrophoresis which showed IgM monoclonal gammopathy quantitating at 1.13 g/dL. He underwent bone marrow aspiration/biopsy on 08/24/2017. The aspirate was dry. The biopsy showed diffuse involvement by small round to oval lymphocytes with scant cytoplasm, consistent with B cell lymphoma. By IHC the neoplastic cells were positive for Bcl-2 and CD20. They were negative for Bcl-6, CD10, CD23. CD68, cyclin-D1, and Sox-11. The Ki-67 proliferative index was low. A peripheral blood flow cytometry study showed B cell chronic lymphoproliferative disorder of small size, negative for CD5, CD10, and CD11c, and positive for CD19, CD20, and CD22. A few were CD23 positive. There were positive for kappa light chain. Overall, the findings were felt most consistent with low-grade B-cell lymphoma of small size, favoring splenic lymphoma with villous lymphocytes. He had further staging with PET/CT on 09/13/2017. It showed a few scattered lymph nodes in the neck, axillary regions, retroperitoneum, pelvis, and inguinal regions, none with increased activity. His further laboratory evaluation included negative serology for HIV, hepatitis B, and hepatitis C. He had a follow-up visit with Dr. Roman on 09/15/2017. He was recommended to undergo treatment with weekly rituximab for 8 weeks. After doing some his own research online, he requested a second opinion evaluation. Dr Stubbs had seen him initially on 10/20/2017. Ultimately he did agree to undergo treatment with rituximab. In the meantime, his repeat CBC on 10/27/2017 showed his hemoglobin back down to 6.3 g, and he was given another transfusion of 2 units of PRBC. On 11/09/2017 he began his first weekly infusion of Rituxan at 375 mg/m??? by IV infusion. He had a significant reaction during the infusion, including fever and severe chills and shaking. The chills resolved with IV Demerol, and he was able to complete the infusion. He was given premedication with 60 mg of Solu-Medrol IV prior to is week 2 rituximab on 11/16/2017. He had no acute reaction, but he subsequently developed significant back pain and other symptoms. His week 3 treatment was delayed, as his blood counts had dropped significantly, including a decrease in the hemoglobin level to 5.6 g. He was transfused 3 units of PRBC. He continued with his 3rd dose of rituximab on 11/30/2017. He was premedicated with 30 mg of Solu-Medrol. He had a mild infusion reaction, which resolved with IV Demerol. He was able to continue with week 4 rituximab on 12/07/2017 and with week 5 treatment on 12/14/2017. At that point his hemoglobin had dropped to 7.3 g, and I did arrange for a transfusion of PRBC the following day. He was still having chills and shaking, but with the shaking predominantly in his right arm. He eventually was able to complete the transfusion and the shaking was able to be controlled with a combination of Demerol and Ativan. He was then seen for followup on 12/21/2017 and at that point I opted to put his treatment on hold. During his subsequent follow-up he continued to have moderately severe anemia and mild thrombocytopenia, and he also continued to have significant fatigue. We were finally able to get him approved for Medicaid in March. He then had restaging PET/CT on 04/29/2018. It showed prominent multiple lymph nodes in the head/neck region, bilateral axilla, and abdominal/retroperitoneal territories with low-grade activity, consistent with viable lymphoma. The largest measured up to 1.8 cm. There was also splenomegaly with uptake consistent with splenic infiltration. Repeat bone marrow aspiration/biopsy on 05/04/2018 showed packed bone marrow with almost complete effacement by a small lymphocyte proliferation. Flow cytometry showed 21% clonal B cells which with lack of CD5 and CD10 and with CD19 and CD20 both moderately positive. HLA-DR was moderately positive, as was kappa CD19. By IHC the malignant cells were positive for CD20 and BCL-2. CD5 and CD10 were predominantly negative. BCL-6 and cyclin D1 also were negative. The findings were felt to be consistent with low-grade B-cell lymphoma of small size with the differential including splenic lymphoma with villous lymphocytes, lymphoplasmacytic B-cell lymphoma, and marginal zone lymphoma. His repeat laboratory studies from 05/24/2018 showed hemoglobin down to 6.4 g with white blood cell count 4500 and platelet count 99,000. The differential showed 40% neutrophils, 52% lymphocytes, 5% monocytes, and 1% eosinophils. Sedimentation rate was greater than 120 mm/hour. His chem profile showed normal renal function with BUN 15 and creatinine 1.0 mg/dL. The liver enzymes were normal. LDH was mildly elevated at 253/225 U/L. The protein electrophoresis reported the total protein was 6.8, albumin was 3.3, alpha-1???globulin was 0.5, alpha???2???globulin 0.8, that it globulin 0.5, gamma globulin 0.5, ABD PRO was 1.1. The SPEP, and was restricted band (M???spike) migrating into the beta 2 region. Immunofixation reported IgM Monoclonal band present. With the drop in the hemoglobin, he was given a transfusion of 2 units of PRBC. In June 2018 he was seen by Dr. Sabino Guadalupe at [facility] for a second opinion evaluation. He then underwent left axillary lymph node biopsy on 07/24/2018. 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 With those findings, he was recommended to undergo a course of treatment with bendamustine/rituximab. His medical history is otherwise significant primarily for bipolar disorder and associated depression. He apparently has had evidence of pulmonary granulomas. His only prior surgery was a vasectomy. He had smoked for a short time in college, and he also had some alcohol use during that time. He has had none since then. INTERIM HISTORY: He began cycle 1 of bendamustine/rituximab on 09/26/2018. He experienced no acute toxicity with the initial infusion of rituximab. He then slept for the next 3 days. He thinks that may have been steroid related. He had no fever or chills, but he did have 3 or 4 drenching night sweats. At his scheduled 4-week follow-up visit he was feeling a little better, though his hemoglobin was still low at 8.4 g. His white blood cell count was still low at 2400 with ANC 1800, and his treatment was put on hold. As of his follow-up visit on 12/19/2018 his hemoglobin had increased to 12 g, but with no significant improvement in the white blood cell count. At that point he had developed significant neuropathy symptoms in his hands and feet. As there was no indication of progression of the lymphoma, I had opted to just continue observation/expectant management. During subsequent follow-up he had continued to have significant pain, some of which appeared to be musculoskeletal pain and some due to neuropathy. As of his follow-up visit in May 2019 his blood counts were normal and there was no clinical evidence of disease progression. He continued observation/expectant management. He is seen for a follow-up visit. He has been feeling pretty good generally. He still has limited activity, but he has been working moderately with breaks. ECOG score is 1. His appetite has mellowed out and he has been able to lose weight. He does not have fever or night sweats. He does not complain of shortness of breath, cough, or chest pain. He has no GI/ complaints other than frequent urination. He still has arthritis pain and he has been having some muscle cramps in his feet. He still has neuropathy pain, but it has improved somewhat with the weight loss. His anxiety/depression is adequately managed with his medication. He still has difficulty sleeping, though. Medications: Acetaminophen Extra Strength 2 Tablet (of 500 mg) Oral daily PRN, ARIPiprazole 1 Tablet (of 5 mg) Oral daily, Depakote 1 Tablet (of 500 mg) Tablet, enteric coated Oral b.i.d., Ibuprofen 2 Tablet (of 200 mg) Oral t.i.d. PRN, Wellbutrin 1 Tablet (of 75 mg) Oral daily Allergies: Mitchell Review of Systems: Constitutional - He has limited activity tolerance, but he is able to work moderately with breaks. His appetite has mellowed out and he has lost weight. He does not have fever or night sweats. ECOG score is 1, ENMT - No sinus congestion/drainage. No mouth sores. No sore throat or difficulty swallowing, Hematologic/Lymphatic - No abnormal bruising or bleeding, Respiratory - No shortness of breath. No cough. No pleuritic pain or hemoptysis, Cardiovascular - No angina pain. No palpitations, Gastrointestinal - No nausea or vomiting. No heartburn or acid reflux. No diarrhea or constipation. No blood in the stool or black stools, Genitourinary (M) - No dysuria or hematuria. He has frequent urination. No urgency or incontinence, Musculoskeletal - He has joint pain and he has muscle cramps in his feet, Integumentary - No skin rash, Neurologic - No headache or dizziness. His neuropathy has improved somewhat with the weight loss, Psychiatric - Has anxiety/depression is adequately managed on his medication. He has difficulty sleeping. Vital Signs: Performed on Feb 25, 2020 12:53 Height - 70.50 in Weight - 212.2 lbs (LOW) BSA - 2.15 sq.m BMI - 30.02 (HIGH) Temperature - 98.5 F Pulse - 46 /min (LOW) Respiration - 16 /min BP - 123/60 mm(hg) O2 Sat - 97 % Pain - 0 Physical Examination: Constitutional - He looks pretty good generally, Eyes - Sclerae nonicteric. Conjunctivae clear, ENMT - No lesions noted in the oral cavity, Hematologic/Lymphatic - There is no cervical, clavicular, or axillary adenopathy noted, Respiratory - Lungs are clear with good air movement bilaterally, Cardiovascular - Heart rhythm is regular. There is a II/ systolic murmur. There is no gallop or rub noted, Abdomen - Soft. Liver is not enlarged. Spleen is not palpable. There is no abdominal mass or ascites noted. There is no inguinal adenopathy noted, Extremities - No edema, Neurologic - No focal neurologic deficits noted. Lab/Imaging: Test performed on Feb 25, 2020 12:09 LDH (Total) 183 U/L Sodium 142 mmol/L Potassium 4.4 mmol/L Chloride 105 mmol/L CO2 29 mmol/L Anion Gap 12.4 BUN 16 mg/dL Creatinine 0.9 mg/dL Cr Clearance (Est) 126.2600 mL/min eGFR 87.6 mL/min Glucose 95 mg/dL Osmolality - Calculated 295 mOsm/kg Calcium 9.1 mg/dL Protein, Total 6.3 g/dL Albumin 4.0 g/dL Globulin 2.3 g/dL Bilirubin, Total 0.5 mg/dL ALT (SGPT) 21 U/L AST (SGOT) 24 U/L Alkaline Phosphatase 98 IU/L WBC 4.1 10 3/uL RBC 4.68 10 6/uL HGB 14.1 g/dL HCT 41.5 % MCV 88.7 fL MCH 30.1 pg MCHC 34.0 g/dL RDW 12.7 % Platelet Count 197 10 3/cmm MPV 9.5 fL Neutrophils 2.64 10 3/uL Lymphocytes 0.8 10 3/uL Monocytes 0.5 10 3/uL Eosinophils 0.1 10 3/uL Basophils 0.0 10 3/uL Neutrophil % 65.1 % Lymphocyte % 20.2 % Monocyte % 12.3 % Eosinophil % 2.0 % Basophils % 0.2 % NRBC % 0 % Impression: 1. 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 He had associated IgM monoclonal gammopathy,splenomegaly, and mild peripheral lymphadenopathy. 2. He had associated anemia, severe enough to require transfusion. 3. His medical history is otherwise significant for bipolar disorder with associated depression. He began treatment with weekly rituximab in October 2017. Between 11/09/2017 and 12/14/2017 he completed a total of 5 infusions of rituximab. It was stopped at that point because of multiple toxicities with it, including severe chills and shaking, fever, back pain, and persistent pancytopenia. Overall, he tolerated it very poorly, and there was no evidence of response or clinical benefit. His restaging PET/CT on 04/29/2018 showed prominent lymph nodes in multiple areas with low grade activity consistent with viable lymphoma. Also noted was splenomegaly with uptake consistent with splenic infiltration. Repeat bone marrow aspiration/biopsy on 05/04/2018 showed packed bone marrow with almost complete effacement by small lymphocyte proliferation. The findings were consistent with low-grade B-cell lymphoma small size, positive for CD19 and CD20, predominantly negative for CD5 and CD10, and negative for cyclin D1. In June 2018 he was seen at [facility] for a second opinion evaluation. He then underwent left axillary lymph node biopsy on 07/24/2018. Pathology was consistent with marginal zone lymphoma. With that finding, he was recommended to undergo a course of treatment with bendamustine/rituximab. He began cycle 1 of bendamustine/rituximab 09/26/2018. Experienced multiple side effects, though overall the treatment was tolerable. At his 4-week follow-up visit he was still moderately anemic. His treatment was put on hold due to neutropenia. During subsequent follow-up, there was significant improvement in the blood counts. Initially he continued to have moderately severe neutropenia, but as of March 2019 is white blood cell count was back up to 4400 with hemoglobin as of March 2019 the neutrophil count was up to 3100 with hemoglobin normal at 14.1 g and platelet count normal at 267,000. Unfortunately, he continued to have significant symptoms including fatigue, generalized joint pain, and peripheral neuropathy. I assumed this was treatment related, though certainly unusual in association with bendamustine/Rituxan, particularly with just one cycle. During follow-up he continued to have neuropathy pain, and he also has had some component of musculoskeletal pain. He has somewhat limited activity tolerance. Since his last visit, his symptoms have improved somewhat, as he has been able to lose some weight. Overall, he appears to be doing pretty well. His blood counts are normal, and there has been no clinical evidence of progression of the lymphoma. Plan: He will continue observation/expectant management for the lymphoma. I will see him again in 6 months. Signed By: Leonard Stubbs M.D. <<Signature on File>>
== END 2020-02-25 11:34 | disposition home or self-care (01) ==
LOC: ONCMED 11:35
PROVIDERS: Visit Provider Internal Medicine Medical Oncology
DX: Z08 Encounter for follow-up examination after completed treatment for malignant neoplasm (principal); Z85.72 Personal history of non-Hodgkin lymphomas; D47.2 Monoclonal gammopathy; R16.1 Splenomegaly, not elsewhere classified; R59.0 Localized enlarged lymph nodes; D64.9 Anemia, unspecified; F31.9 Bipolar disorder, unspecified; F32.9 Major depressive disorder, single episode, unspecified; Z92.21 Personal history of antineoplastic chemotherapy; Z79.899 Other long term (current) drug therapy
CPT/HCPCS: 36415; 80053; 83615; 85025; G0463

== ENCOUNTER 2020-06-28 22:48 | Emergency (ER) | payer MEDICAID, SELFPAY ==
[2020-06-28 23:05] VITALS: BP 152/78; PULSE 56; RESP 18; TEMP 36.7; O2SAT 97; BMI 31.8
--- NOTE | 2020-06-29 00:03 | W.ED.EXTPRO ---
HPI - Extremity Problem General: Chief complaint: Extremity Problem,Nontraumatic Stated complaint: possible blood clot Time Seen by Provider: 06/29/20 00:02 Source: patient Mode of arrival: ambulatory Limitations: no limitations History of Present Illness: HPI Narrative: 54-year-old male patient comes in today with complaints of right calf pain for the last 2 days. Patient appears well. Patient appears no acute distress. Patient has a problem with schizophrenia and depression. MD Complaint: extremity pain and extremity swelling Onset (ago): day(s) Pain Consistency: intermittent Location: right and lower extremity Quality: aching Radiation: none Review of Systems General: Reports: 10 or more systems reviewed and unremarkable except in HPI and below Musc: Reports: other (Right lower leg swelling and pain) Physical Exam Const: COMMON NORMALS: no acute distress and patient oriented x3 GENERAL APPEARANCE: cooperative HENMT: COMMON NORMALS: normocephalic and Normal external nose present HEAD & SCALP: normal to inspection and normocephalic NOSE: Normal external nose present Eye: GENERAL EYE: appearance normal, both eyes and all related structures Neck/C-Spine: COMMON NORMALS: full ROM Chest: COMMONS NORMALS: normal inspection of the chest Resp: COMMON NORMALS: normal respiratory effort EFFORT & INSPECTION: Yes able to speak in complete sentences Cardio: COMMON NORMALS: regular rate and regular rhythm RATE: regular rate RHYTHM: regular rhythm GI: COMMON NORMALS: non-tender Extremity: COMMON NORMALS: normal to inspection NARRATIVE EXTREMITY EXAM: Right calf pain, mild swelling, minimal redness. Distal pulses are intact. Patient has multiple varicosities. Neuro: COMMON NORMALS: patient oriented x3 and moves all extremities Psych: COMMON NORMALS: mental status grossly normal and cooperative Skin: COMMON NORMALS: no rashes or lesions noted GENERAL SKIN EXAM: no rashes or lesions noted Course Vital Signs: Vital signs: Vital Signs Temperature 98.1 F 06/28/20 23:05 Pulse Rate 56 L 06/28/20 23:05 Respiratory Rate 18 06/28/20 23:05 Blood Pressure 152/78 06/28/20 23:05 Pulse Oximetry 97 06/28/20 23:05 MDM - Extremity (Nontraumatic) MDM Narrative: Medical decision making narrative: Patient came in for right calf pain. Patient denies any injury. Patient was concerned due to some prolonged travel over the last week. Patient has no history of DVT. On exam patient has some tenderness to the right posterior calf there does have some tenderness and a varicosity. No popliteal pain. Differential diagnosis includes not limited to superficial thrombophlebitis, varicose veins, DVT. Ultrasound the extremity indicated no DVT. Reviewed exam with patient with recommendations for treatment of calf pain related to varicose veins. Recommended ibuprofen or naproxen for the pain. Patient reported understanding agreed to plan. Discharge Plan Discharge Patient Disposition: Home Clinical Impression: Right calf pain Condition: Stable Discharge Orders: Discharge ED (Routine); Ordered 06/29/20 Ordered By: John Paul Ferguson Discharge Diet: Usual diet Discharge Activity: Increase activity as tolerated Patient Instructions: Musculoskeletal Pain (ED), Opioid Safety Activity Restrictions/Additional Instructions: Activity as tolerated. Use either [id number] ibuprofen or naproxen as directed by the bottle for the next 7 days to help with pain. You may also use muscle rub or ice for further comfort relief. Follow-up with primary care for further recommendations on treatment. Return to the emergency department for new concerns. Coding Level of Care Code ED Dramatic Agent for José Miguel Fwkirit Exam Comprehensive
--- NOTE | 2020-06-29 00:07 | USR_ITS ---
PROCEDURE INFORMATION: Exam: US Duplex Right Lower Extremity Veins, Limited Exam date and time: 06/29/2020 12:50 AM Age: 54 years old Clinical indication: Pain; Leg, lower; Right; Additional info: R/O dvt, pain and swelling TECHNIQUE: Imaging protocol: Real-time Duplex ultrasound of the Right Lower Extremity with 2-D hadley scale, color Doppler flow and spectral waveform analysis with image documentation. Limited exam was focused on the right lower extremity veins. COMPARISON: No relevant prior studies available. FINDINGS: Evaluated veins include the right common femoral, proximal profunda femoral, proximal/mid/distal superficial femoral, popliteal, posterior tibial, peroneal, and proximal greater saphenous veins. No visible clot in the included veins. The included veins appear normally compressible. Duplex Doppler evaluation demonstrates flow in the evaluated veins. US/[place] [id number] IMPRESSION: No evidence of acute right lower extremity DVT.
[2020-06-29 01:33] VITALS: BP 121/57; PULSE 51; O2SAT 95
== END 2020-06-29 01:30 | disposition home or self-care (01) ==
PROVIDERS: Emergency Provider Nurse Practitioner Family
DX: M79.18 Myalgia, other site (principal)
CPT/HCPCS: 93971; 99282

== ENCOUNTER 2020-09-12 10:09 | Outpatient (CLI) | payer MEDICAID, SELFPAY ==
[2020-09-12 10:25] LABS: Basophils % 0.4 %; Eosinophils # 0.2 10^3/uL (0.0-0.8); Eosinophils % 3.1 %; Hematocrit 38.6 % (42.0-52.0); Hemoglobin 12.9 g/dL (11.7-16.6); Lymphocytes # 1.3 10^3/uL (0.8-4.8); Lymphocytes % 26.5 %; Mean Corpuscular HGB Conc 33.4 g/dL (30.0-36.0); Mean Corpuscular Hemoglobin 29.6 pg (28.0-34.0); Mean Corpuscular Volume 88.5 fL (80-94); Mean Platelet Volume 9.2 fL (7.4-10.4); Monocytes # 0.6 10^3/uL (0.2-0.9); Monocytes % 12.1 %; Neutrophils # 2.75 10^3/uL (1.8-7.7); Neutrophils % 57.5 %; Nucleated Red Blood Cells % 0 %; Platelet Count 175 10^3/cmm (130-400); Red Blood Count 4.36 10^6/uL (4.1-5.3); Red Cell Distribution Width 13.1 % (12.1-15.1); White Blood Count 4.8 10^3/uL (4.0-10.0)
[2020-09-12 10:56] LABS: Alanine Aminotransferase 17 U/L (0-41); Albumin Level 3.9 g/dL (3.5-5.2); Alkaline Phosphatase 92 IU/L (40-130); Aspartate Amino Transferase 16 U/L (0-40); Blood Urea Nitrogen 17 mg/dL (6-20); Calcium 8.7 mg/dL (8.5-10.5); Carbon Dioxide 28 mmol/L (22-29); Chloride 105 mmol/L (98-107); Globulin 2.1 g/dL (1.3-4.6); Glomerular Filtration Rate 87.3 mL/min (90-130); Glucose 97 mg/dL (65-115); Osmolality Calculated 293 mOsm/kg (285-295); Sodium 141 mmol/L (136-145); Total Bilirubin 0.5 mg/dL (0.15-1.2)
== END 2020-09-12 10:10 | disposition home or self-care (01) ==
LOC: ONCMED 10:11
PROVIDERS: Visit Provider Internal Medicine Medical Oncology
DX: C83.00 Small cell B-cell lymphoma, unspecified site (principal)
CPT/HCPCS: 80053; 85025

== ENCOUNTER 2020-09-16 06:14 | Outpatient (CLI) | payer MEDICAID, SELFPAY ==
--- NOTE | 2020-09-19 13:17 | ONC FU_ITS ---
Dr. Stubbs Patient Follow-Up Note Patient: Kannan London Unit #: [id number]: 1965 Dicatated By: Leonard Stubbs M.D.Date of Visit:Sep 16, 2020 Onc Med Follow-up/Prog Note Chief Complaint: Lymphoma. 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 He had presented in July 2017 with a several month history of increasing fatigue, shortness of breath, dizziness, and muscle cramping. He was found to be severely anemic, hemoglobin 5.6 g. He also was reported to be mildly neutropenic, and his LDH level was slightly elevated at 278 U/L. He was admitted to the hospital and transfused packed red blood cells. His abdominal ultrasound showed enlarged spleen measuring 17.8 cm. There was no lymphadenopathy noted. His further evaluation included protein electrophoresis which showed IgM monoclonal gammopathy quantitating at 1.13 g/dL. He underwent bone marrow aspiration/biopsy on 08/24/2017. The aspirate was dry. The biopsy showed diffuse involvement by small round to oval lymphocytes with scant cytoplasm, consistent with B cell lymphoma. By IHC the neoplastic cells were positive for Bcl-2 and CD20. They were negative for Bcl-6, CD10, CD23. CD68, cyclin-D1, and Sox-11. The Ki-67 proliferative index was low. A peripheral blood flow cytometry study showed B cell chronic lymphoproliferative disorder of small size, negative for CD5, CD10, and CD11c, and positive for CD19, CD20, and CD22. A few were CD23 positive. There were positive for kappa light chain. Overall, the findings were felt most consistent with low-grade B-cell lymphoma of small size, favoring splenic lymphoma with villous lymphocytes. He had further staging with PET/CT on 09/13/2017. It showed a few scattered lymph nodes in the neck, axillary regions, retroperitoneum, pelvis, and inguinal regions, none with increased activity. His further laboratory evaluation included negative serology for HIV, hepatitis B, and hepatitis C. He had a follow-up visit with Dr. Roman on 09/15/2017. He was recommended to undergo treatment with weekly rituximab for 8 weeks. After doing some his own research online, he requested a second opinion evaluation. Dr Stubbs had seen him initially on 10/20/2017. Ultimately he did agree to undergo treatment with rituximab. In the meantime, his repeat CBC on 10/27/2017 showed his hemoglobin back down to 6.3 g, and he was given another transfusion of 2 units of PRBC. On 11/09/2017 he began his first weekly infusion of Rituxan at 375 mg/m??? by IV infusion. He had a significant reaction during the infusion, including fever and severe chills and shaking. The chills resolved with IV Demerol, and he was able to complete the infusion. He was given premedication with 60 mg of Solu-Medrol IV prior to is week 2 rituximab on 11/16/2017. He had no acute reaction, but he subsequently developed significant back pain and other symptoms. His week 3 treatment was delayed, as his blood counts had dropped significantly, including a decrease in the hemoglobin level to 5.6 g. He was transfused 3 units of PRBC. He continued with his 3rd dose of rituximab on 11/30/2017. He was premedicated with 30 mg of Solu-Medrol. He had a mild infusion reaction, which resolved with IV Demerol. He was able to continue with week 4 rituximab on 12/07/2017 and with week 5 treatment on 12/14/2017. At that point his hemoglobin had dropped to 7.3 g, and I did arrange for a transfusion of PRBC the following day. He was still having chills and shaking, but with the shaking predominantly in his right arm. He eventually was able to complete the transfusion and the shaking was able to be controlled with a combination of Demerol and Ativan. He was then seen for followup on 12/21/2017 and at that point I opted to put his treatment on hold. During his subsequent follow-up he continued to have moderately severe anemia and mild thrombocytopenia, and he also continued to have significant fatigue. We were finally able to get him approved for Medicaid in March. He then had restaging PET/CT on 04/29/2018. It showed prominent multiple lymph nodes in the head/neck region, bilateral axilla, and abdominal/retroperitoneal territories with low-grade activity, consistent with viable lymphoma. The largest measured up to 1.8 cm. There was also splenomegaly with uptake consistent with splenic infiltration. Repeat bone marrow aspiration/biopsy on 05/04/2018 showed packed bone marrow with almost complete effacement by a small lymphocyte proliferation. Flow cytometry showed 21% clonal B cells which with lack of CD5 and CD10 and with CD19 and CD20 both moderately positive. HLA-DR was moderately positive, as was kappa CD19. By IHC the malignant cells were positive for CD20 and BCL-2. CD5 and CD10 were predominantly negative. BCL-6 and cyclin D1 also were negative. The findings were felt to be consistent with low-grade B-cell lymphoma of small size with the differential including splenic lymphoma with villous lymphocytes, lymphoplasmacytic B-cell lymphoma, and marginal zone lymphoma. His repeat laboratory studies from 05/24/2018 showed hemoglobin down to 6.4 g with white blood cell count 4500 and platelet count 99,000. The differential showed 40% neutrophils, 52% lymphocytes, 5% monocytes, and 1% eosinophils. Sedimentation rate was greater than 120 mm/hour. His chem profile showed normal renal function with BUN 15 and creatinine 1.0 mg/dL. The liver enzymes were normal. LDH was mildly elevated at 253/225 U/L. The protein electrophoresis reported the total protein was 6.8, albumin was 3.3, alpha-1???globulin was 0.5, alpha???2???globulin 0.8, that it globulin 0.5, gamma globulin 0.5, ABD PRO was 1.1. The SPEP, and was restricted band (M???spike) migrating into the beta 2 region. Immunofixation reported IgM Monoclonal band present. With the drop in the hemoglobin, he was given a transfusion of 2 units of PRBC. In June 2018 he was seen by Dr. Sabino Guadalupe at [facility] for a second opinion evaluation. He then underwent left axillary lymph node biopsy on 07/24/2018. 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 With those findings, he was recommended to undergo a course of treatment with bendamustine/rituximab. His medical history is otherwise significant primarily for bipolar disorder and associated depression. He apparently has had evidence of pulmonary granulomas. His only prior surgery was a vasectomy. He had smoked for a short time in college, and he also had some alcohol use during that time. He has had none since then. INTERIM HISTORY: He began cycle 1 of bendamustine/rituximab on 09/26/2018. He experienced no acute toxicity with the initial infusion of rituximab. He then slept for the next 3 days. He thinks that may have been steroid related. He had no fever or chills, but he did have 3 or 4 drenching night sweats. At his scheduled 4-week follow-up visit he was feeling a little better, though his hemoglobin was still low at 8.4 g. His white blood cell count was still low at 2400 with ANC 1800, and his treatment was put on hold. As of his follow-up visit on 12/19/2018 his hemoglobin had increased to 12 g, but with no significant improvement in the white blood cell count. At that point he had developed significant neuropathy symptoms in his hands and feet. As there was no indication of progression of the lymphoma, I had opted to just continue observation/expectant management. During subsequent follow-up he had continued to have significant pain, some of which appeared to be musculoskeletal pain and some due to neuropathy. As of his follow-up visit in February 2020 his blood counts were normal and there was no clinical evidence of disease progression. He continued expectant management. He is seen for a follow-up visit. He has been feeling pretty good generally, though he still has limited activity tolerance. He is able to do some work. His ECOG score is 1. He continues to struggle with weight gain, and he has had difficulty maintaining a keto diet. His weight is up 18 pounds since February. He does not have fever or night sweats. He has not had sore mouth or throat. He does not complain of cough, shortness of breath, or chest pain. He has had a little bit of nausea/heartburn, attributable to coffee. Bowels tend to fluctuate with diet. He has frequent urination. He continues to have some joint pain, mainly in the hands, knees, and feet. That does tend to fluctuate with the amount of sugar in his diet. He does not complain of headache or dizziness. He continues to have numbness on the soles of his feet. He feels that his depression is being adequately managed. He continues to have a very irregular sleep pattern. Medications: Acetaminophen Extra Strength 2 Tablet (of 500 mg) Oral daily PRN, ARIPiprazole 1 Tablet (of 5 mg) Oral daily, Depakote 1 Tablet (of 500 mg) Tablet, enteric coated Oral b.i.d., Ibuprofen 2 Tablet (of 200 mg) Oral t.i.d. PRN, Wellbutrin 1 Tablet (of 75 mg) Oral daily Allergies: Mitchell Vital Signs: Performed on Sep 16, 2020 09:11 Height - 70.50 in Weight - 230 lbs (HIGH) BSA - 2.23 sq.m BMI - 32.54 (HIGH) Temperature - 97.2 F (LOW) Pulse - 52 /min (LOW) Respiration - 18 /min BP - 131/77 mm(hg) O2 Sat - 98 % Pain - 2 Fatigue - 0 Physical Examination: Constitutional - He looks pretty good generally, Eyes - Sclerae nonicteric. Conjunctivae clear, ENMT - No lesions noted in the oral cavity, Hematologic/Lymphatic - There is no cervical, clavicular, or axillary adenopathy noted, Respiratory - Lungs are clear with good air movement bilaterally, Cardiovascular - Heart rhythm is regular. There is no murmur, gallop, or rub noted, Abdomen - Soft. Liver is not enlarged. Spleen is not palpable. There is no abdominal mass or ascites noted. There is no inguinal adenopathy noted, Extremities - There are mild venous stasis changes bilaterally. There is no edema. Dorsalis pedis pulses are palpable bilaterally, Neurologic - No focal neurologic deficits noted. Lab/Imaging: CBC shows hemoglobin 12.9 g, white blood cell count 4800, and platelet count 175,000. Comprehensive metabolic profile shows stable renal function with BUN 17 and creatinine 0.9 mg/dL. The bilirubin and liver enzymes are normal. Problem List: 1. Patient with low-grade B-cell lymphoproliferative disorder involving the bone marrow, felt to be most consistent with splenic lymphoma with villous lymphocytes at initial diagnosis in August 2017. 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 2. His medical history is otherwise significant for bipolar disorder with associated depression. Problems Addressed with this Encounter and Plan: Patient with low-grade B-cell lymphoproliferative disorder involving the bone marrow, felt to be most consistent with splenic lymphoma with villous lymphocytes. He had associated IgM monoclonal gammopathy,splenomegaly, and mild peripheral lymphadenopathy. He also had associated anemia, severe enough to require transfusion. He began treatment with weekly rituximab in October 2017. Between 11/09/2017 and 12/14/2017 he completed a total of 5 infusions of rituximab. It was stopped at that point because of multiple toxicities with it, including severe chills and shaking, fever, back pain, and persistent pancytopenia. Overall, he tolerated it very poorly, and there was no evidence of response or clinical benefit. His restaging PET/CT on 04/29/2018 showed prominent lymph nodes in multiple areas with low grade activity consistent with viable lymphoma. Also noted was splenomegaly with uptake consistent with splenic infiltration. Repeat bone marrow aspiration/biopsy on 05/04/2018 showed packed bone marrow with almost complete effacement by small lymphocyte proliferation. The findings were consistent with low-grade B-cell lymphoma small size, positive for CD19 and CD20, predominantly negative for CD5 and CD10, and negative for cyclin D1. In June 2018 he was seen at [facility] for a second opinion evaluation. He then underwent left axillary lymph node biopsy on 07/24/2018. Pathology was consistent with marginal zone lymphoma. With that finding, he was recommended to undergo a course of treatment with bendamustine/rituximab. He began cycle 1 of bendamustine/rituximab 09/26/2018. He experienced multiple side effects, though overall the treatment was tolerable. At his 4-week follow-up visit he was still moderately anemic. His treatment was put on hold due to neutropenia. During subsequent follow-up, there was gradual improvement in the blood counts. As of March 2019 his white blood cell count was back up to 4400 with absolute neutrophil count 3100. His hemoglobin was normal at 14.1 g and platelet count was normal at 267,000. Unfortunately, he continued to have significant symptoms including fatigue, generalized joint pain, and peripheral neuropathy. I assumed this was treatment related, though certainly unusual in association with bendamustine/Rituxan, particularly with just one cycle. During follow-up he has continued to have neuropathy pain as well as some component of musculoskeletal pain. He also has had limited activity tolerance, and he has struggled with weight gain. However, thus far there has been no evidence clinically of progression of the lymphoma. As such, he continues on expectant management. I will see him again in 6 months. Signed By: Leonard Stubbs M.D. <<Signature on File>>
== END 2020-09-16 06:15 | disposition home or self-care (01) ==
LOC: ONCMED 06:19
PROVIDERS: Visit Provider Internal Medicine Medical Oncology
DX: Z85.72 Personal history of non-Hodgkin lymphomas (principal); G62.9 Polyneuropathy, unspecified; F31.9 Bipolar disorder, unspecified
CPT/HCPCS: G0463

== ENCOUNTER 2021-03-16 13:20 | Outpatient (CLI) | payer MEDICAID, SELFPAY ==
[2021-03-16 14:00] LABS: Basophils % 0.3 %; Eosinophils # 0.1 10^3/uL (0.0-0.8); Eosinophils % 1.8 %; Hematocrit 34.5 % (42.0-52.0); Hemoglobin 11.3 g/dL (11.7-16.6); Lymphocytes # 0.9 10^3/uL (0.8-4.8); Lymphocytes % 27.7 %; Mean Corpuscular HGB Conc 32.8 g/dL (30.0-36.0); Mean Corpuscular Hemoglobin 29.7 pg (28.0-34.0); Mean Corpuscular Volume 90.6 fl (80-94); Mean Platelet Volume 9.3 fL (7.4-10.4); Monocytes # 0.3 10^3/uL (0.2-0.9); Monocytes % 9.4 %; Neutrophils # 1.95 10^3/uL (1.8-7.7); Neutrophils % 59.3 %; Nucleated Red Blood Cells % 0 %; Platelet Count 154 10^3/cmm (130-400); Red Blood Count 3.81 10^6/uL (4.1-5.3); Red Cell Distribution Width 13.8 % (12.1-15.1); White Blood Count 3.3 10^3/uL (4.0-10.0)
[2021-03-16 14:18] LABS: Alanine Aminotransferase 14 U/L (0-41); Albumin Level 3.9 g/dL (3.5-5.2); Alkaline Phosphatase 80 IU/L (40-130); Anion Gap 14.1 (5-19); Aspartate Amino Transferase 20 U/L (0-40); Blood Urea Nitrogen 16 mg/dL (6-20); Calcium 8.1 mg/dL (8.5-10.5); Carbon Dioxide 27 mmol/L (22-29); Chloride 107 mmol/L (98-107); Globulin 2.4 g/dL (1.3-4.6); Glomerular Filtration Rate 87.3 mL/min (90-130); Glucose 87 mg/dL (65-115); Lactate Dehydrogenase 216 U/L (135-225); Osmolality Calculated 299 mOsm/kg (285-295); Potassium 4.1 mmol/L (3.5-5.1); Sodium 144 mmol/L (136-145); Total Bilirubin 0.4 mg/dL (0.15-1.2); Total Protein 6.3 g/dL (6.6-8.7)
== END 2021-03-16 13:21 | disposition home or self-care (01) ==
LOC: ONCMED 13:24
PROVIDERS: Visit Provider Internal Medicine Medical Oncology
DX: C83.00 Small cell B-cell lymphoma, unspecified site (principal)
CPT/HCPCS: 36415; 80053; 83615; 85025

== ENCOUNTER 2021-03-19 12:28 | Outpatient (CLI) | payer MEDICAID, SELFPAY ==
--- NOTE | 2021-03-21 12:42 | ONC FU_ITS ---
Dr. Stubbs Patient Follow-Up Note Patient: Kannan London Unit #: [id number]: 1965 Dicatated By: Leonard Stubbs M.D.Date of Visit:Mar 19, 2021 Onc Med Follow-up/Prog Note Chief Complaint: Lymphoma. 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 He had presented in July 2017 with a several month history of increasing fatigue, shortness of breath, dizziness, and muscle cramping. He was found to be severely anemic, hemoglobin 5.6 g. He also was reported to be mildly neutropenic, and his LDH level was slightly elevated at 278 U/L. He was admitted to the hospital and transfused packed red blood cells. His abdominal ultrasound showed enlarged spleen measuring 17.8 cm. There was no lymphadenopathy noted. His further evaluation included protein electrophoresis which showed IgM monoclonal gammopathy quantitating at 1.13 g/dL. He underwent bone marrow aspiration/biopsy on 08/24/2017. The aspirate was dry. The biopsy showed diffuse involvement by small round to oval lymphocytes with scant cytoplasm, consistent with B cell lymphoma. By IHC the neoplastic cells were positive for Bcl-2 and CD20. They were negative for Bcl-6, CD10, CD23. CD68, cyclin-D1, and Sox-11. The Ki-67 proliferative index was low. A peripheral blood flow cytometry study showed B cell chronic lymphoproliferative disorder of small size, negative for CD5, CD10, and CD11c, and positive for CD19, CD20, and CD22. A few were CD23 positive. There were positive for kappa light chain. Overall, the findings were felt most consistent with low-grade B-cell lymphoma of small size, favoring splenic lymphoma with villous lymphocytes. He had further staging with PET/CT on 09/13/2017. It showed a few scattered lymph nodes in the neck, axillary regions, retroperitoneum, pelvis, and inguinal regions, none with increased activity. His further laboratory evaluation included negative serology for HIV, hepatitis B, and hepatitis C. He had a follow-up visit with Dr. Roman on 09/15/2017. He was recommended to undergo treatment with weekly rituximab for 8 weeks. After doing some his own research online, he requested a second opinion evaluation. Dr Stubbs had seen him initially on 10/20/2017. Ultimately he did agree to undergo treatment with rituximab. In the meantime, his repeat CBC on 10/27/2017 showed his hemoglobin back down to 6.3 g, and he was given another transfusion of 2 units of PRBC. On 11/09/2017 he began his first weekly infusion of Rituxan at 375 mg/m??? by IV infusion. He had a significant reaction during the infusion, including fever and severe chills and shaking. The chills resolved with IV Demerol, and he was able to complete the infusion. He was given premedication with 60 mg of Solu-Medrol IV prior to is week 2 rituximab on 11/16/2017. He had no acute reaction, but he subsequently developed significant back pain and other symptoms. His week 3 treatment was delayed, as his blood counts had dropped significantly, including a decrease in the hemoglobin level to 5.6 g. He was transfused 3 units of PRBC. He continued with his 3rd dose of rituximab on 11/30/2017. He was premedicated with 30 mg of Solu-Medrol. He had a mild infusion reaction, which resolved with IV Demerol. He was able to continue with week 4 rituximab on 12/07/2017 and with week 5 treatment on 12/14/2017. At that point his hemoglobin had dropped to 7.3 g, and I did arrange for a transfusion of PRBC the following day. He was still having chills and shaking, but with the shaking predominantly in his right arm. He eventually was able to complete the transfusion and the shaking was able to be controlled with a combination of Demerol and Ativan. He was then seen for followup on 12/21/2017 and at that point I opted to put his treatment on hold. During his subsequent follow-up he continued to have moderately severe anemia and mild thrombocytopenia, and he also continued to have significant fatigue. We were finally able to get him approved for Medicaid in March. He then had restaging PET/CT on 04/29/2018. It showed prominent multiple lymph nodes in the head/neck region, bilateral axilla, and abdominal/retroperitoneal territories with low-grade activity, consistent with viable lymphoma. The largest measured up to 1.8 cm. There was also splenomegaly with uptake consistent with splenic infiltration. Repeat bone marrow aspiration/biopsy on 05/04/2018 showed packed bone marrow with almost complete effacement by a small lymphocyte proliferation. Flow cytometry showed 21% clonal B cells which with lack of CD5 and CD10 and with CD19 and CD20 both moderately positive. HLA-DR was moderately positive, as was kappa CD19. By IHC the malignant cells were positive for CD20 and BCL-2. CD5 and CD10 were predominantly negative. BCL-6 and cyclin D1 also were negative. The findings were felt to be consistent with low-grade B-cell lymphoma of small size with the differential including splenic lymphoma with villous lymphocytes, lymphoplasmacytic B-cell lymphoma, and marginal zone lymphoma. His repeat laboratory studies from 05/24/2018 showed hemoglobin down to 6.4 g with white blood cell count 4500 and platelet count 99,000. The differential showed 40% neutrophils, 52% lymphocytes, 5% monocytes, and 1% eosinophils. Sedimentation rate was greater than 120 mm/hour. His chem profile showed normal renal function with BUN 15 and creatinine 1.0 mg/dL. The liver enzymes were normal. LDH was mildly elevated at 253/225 U/L. The protein electrophoresis reported the total protein was 6.8, albumin was 3.3, alpha-1???globulin was 0.5, alpha???2???globulin 0.8, that it globulin 0.5, gamma globulin 0.5, ABD PRO was 1.1. The SPEP, and was restricted band (M???spike) migrating into the beta 2 region. Immunofixation reported IgM Monoclonal band present. With the drop in the hemoglobin, he was given a transfusion of 2 units of PRBC. In June 2018 he was seen by Dr. Sabino Guadalupe at [facility] for a second opinion evaluation. He then underwent left axillary lymph node biopsy on 07/24/2018. 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 With those findings, he was recommended to undergo a course of treatment with bendamustine/rituximab. He began cycle 1 of bendamustine/rituximab on 09/26/2018. He experienced no acute toxicity with the initial infusion of rituximab. He then slept for the next 3 days, thought to have been steroid related. He had no fever or chills, but he did have 3 or 4 drenching night sweats. At his scheduled 4-week follow-up visit he was feeling a little better, though his hemoglobin was still low at 8.4 g. His white blood cell count was still low at 2400 with ANC 1800, and his treatment was put on hold. As of his follow-up visit on 12/19/2018 his hemoglobin had increased to 12 g, but with no significant improvement in the white blood cell count. At that point he had developed significant neuropathy symptoms in his hands and feet. As there was no indication of progression of the lymphoma, I had opted to just continue expectant management. During subsequent follow-up he had continued to have significant pain, some of which appeared to be musculoskeletal pain and some due to neuropathy. As of his follow-up visit in February 2020 his blood counts were normal and there was no clinical evidence of disease progression. He continued expectant management. His medical history is otherwise significant primarily for bipolar disorder and associated depression. He apparently has had evidence of pulmonary granulomas. His only prior surgery was a vasectomy. He had smoked for a short time in college, and he also had some alcohol use during that time. He has had none since then. INTERIM HISTORY: He is seen for a follow-up visit. He says he has been feeling all right, but he continues to have ongoing neuropathy symptoms, which are significant enough to limit his activity. The main complaint has been pain in his hands and burning in his feet. He also has been having foot cramps at night. Overall, the symptoms have improved somewhat since cutting sugar out from his diet. His ECOG score is 1. He has good appetite. He has no fever or night sweats. He has not had sore mouth or throat. He does not complain of cough, and he has not been having shortness of breath or chest pain. He has no GI or complaints. He has no other joint or bone pain, and he has not been having headache or dizziness. Medications: Acetaminophen Extra Strength 2 Tablet (of 500 mg) Oral daily PRN, ARIPiprazole 1 Tablet (of 5 mg) Oral daily, Depakote 1 Tablet (of 500 mg) Tablet, enteric coated Oral b.i.d., Ibuprofen 2 Tablet (of 200 mg) Oral t.i.d. PRN, Wellbutrin 1 Tablet (of 75 mg) Oral daily Allergies: Mitchell Vital Signs: Performed on Mar 19, 2021 12:54 Height - 70.50 in Weight - 212.8 lbs (LOW) BSA - 2.15 sq.m BMI - 30.10 (HIGH) Temperature - 98.8 F Pulse - 50 /min (LOW) Respiration - 1 /min (LOW) BP - 135/73 mm(hg) O2 Sat - 97 % Pain - 2 Fatigue - 0 Physical Examination: Constitutional - He looks pretty good generally, Eyes - Sclerae nonicteric. Conjunctivae clear, ENMT - No lesions noted in the oral cavity, Hematologic/Lymphatic - There is no cervical, clavicular, or axillary adenopathy noted, Respiratory - Lungs sound clear, Cardiovascular - Heart rhythm is regular. There is no murmur, gallop, or rub noted, Abdomen - Soft. Liver is not enlarged. Spleen is not palpable. There is no abdominal mass or ascites noted. There is no inguinal adenopathy noted, Extremities - No edema, Neurologic - No focal neurologic deficits noted. Lab/Imaging: CBC shows hemoglobin 11.3 g, white blood cell count 3300, and platelet count 154,000. Comprehensive metabolic profile shows normal renal function with BUN 16 and creatinine 0.9 mg/dL. The bilirubin and liver enzymes are normal. LDH is normal at 216 U/L. Problem List: 1. Patient with low-grade B-cell lymphoproliferative disorder involving the bone marrow, felt to be most consistent with splenic lymphoma with villous lymphocytes at initial diagnosis in August 2017. 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 2. His medical history is otherwise significant for bipolar disorder with associated depression. Problems Addressed with this Encounter and Plan: Patient with low-grade B-cell lymphoproliferative disorder involving the bone marrow, felt to be most consistent with splenic lymphoma with villous lymphocytes. He had associated IgM monoclonal gammopathy,splenomegaly, and mild peripheral lymphadenopathy. He also had associated anemia, severe enough to require transfusion. He began treatment with weekly rituximab in October 2017. Between 11/09/2017 and 12/14/2017 he completed a total of 5 infusions of rituximab. It was stopped at that point because of multiple toxicities with it, including severe chills and shaking, fever, back pain, and persistent pancytopenia. Overall, he tolerated it very poorly, and there was no evidence of response or clinical benefit. His restaging PET/CT on 04/29/2018 showed prominent lymph nodes in multiple areas with low grade activity consistent with viable lymphoma. Also noted was splenomegaly with uptake consistent with splenic infiltration. Repeat bone marrow aspiration/biopsy on 05/04/2018 showed packed bone marrow with almost complete effacement by small lymphocyte proliferation. The findings were consistent with low-grade B-cell lymphoma small size, positive for CD19 and CD20, predominantly negative for CD5 and CD10, and negative for cyclin D1. In June 2018 he was seen at [facility] for a second opinion evaluation. He then underwent left axillary lymph node biopsy on 07/24/2018. Pathology was consistent with marginal zone lymphoma. With that finding, he was recommended to undergo a course of treatment with bendamustine/rituximab. He began cycle 1 of bendamustine/rituximab 09/26/2018. He experienced multiple side effects, though overall the treatment was tolerable. At his 4-week follow-up visit he was still moderately anemic. His treatment was put on hold due to neutropenia. During subsequent follow-up, there was gradual improvement in the blood counts. As of March 2019 his white blood cell count was back up to 4400 with absolute neutrophil count 3100. His hemoglobin was normal at 14.1 g and platelet count was normal at 267,000. Unfortunately, he continued to have significant symptoms including fatigue, generalized joint pain, and peripheral neuropathy. I assumed this was treatment related, though certainly unusual in association with bendamustine/Rituxan, particularly with just one cycle. During follow-up he has had ongoing issues with the neuropathy, which has been significant enough to limit his activity. There has been no obvious progression of the lymphoma, though his current CBC does show a slight decline in his blood counts, which is a little disconcerting. As such, he will be scheduled for repeat CBC in 3 months. I will tentatively plan a follow-up visit in 6 months. Signed By: Leonard Stubbs M.D. <<Signature on File>>
== END 2021-03-19 12:29 | disposition home or self-care (01) ==
LOC: ONCMED 12:30
PROVIDERS: Visit Provider Internal Medicine Medical Oncology
DX: D47.Z9 Other specified neoplasms of uncertain behavior of lymphoid, hematopoietic and related tissue (principal); F31.9 Bipolar disorder, unspecified; D47.2 Monoclonal gammopathy; G62.9 Polyneuropathy, unspecified
CPT/HCPCS: G0463

== ENCOUNTER 2021-06-17 12:35 | Outpatient (CLI) | payer MEDICAID, SELFPAY ==
[2021-06-17 13:05] LABS: Basophils % 0.7 %; Eosinophils # 0.1 10^3/uL (0.0-0.8); Eosinophils % 1.7 %; Hematocrit 35.9 % (42.0-52.0); Hemoglobin 11.9 g/dL (11.7-16.6); Lymphocytes # 1.4 10^3/uL (0.8-4.8); Lymphocytes % 33.8 %; Mean Corpuscular HGB Conc 33.1 g/dL (30.0-36.0); Mean Corpuscular Hemoglobin 29.2 pg (28.0-34.0); Mean Corpuscular Volume 88.2 fl (80-94); Mean Platelet Volume 8.9 fL (7.4-10.4); Monocytes # 0.6 10^3/uL (0.2-0.9); Monocytes % 13.3 %; Neutrophils # 2.03 10^3/uL (1.8-7.7); Neutrophils % 49.1 %; Nucleated Red Blood Cells % 0.5 %; Platelet Count 153 10^3/cmm (130-400); Red Blood Count 4.07 10^6/uL (4.1-5.3); Red Cell Distribution Width 13.2 % (12.1-15.1); White Blood Count 4.1 10^3/uL (4.0-10.0)
[2021-06-17 13:26] LABS: Alanine Aminotransferase 12 U/L (0-41); Albumin Level 4.3 g/dL (3.5-5.2); Alkaline Phosphatase 102 IU/L (40-130); Aspartate Amino Transferase 15 U/L (0-40); Blood Urea Nitrogen 15 mg/dL (6-20); Calcium 9.6 mg/dL (8.5-10.5); Carbon Dioxide 27 mmol/L (22-29); Chloride 102 mmol/L (98-107); Globulin 2.5 g/dL (1.3-4.6); Glomerular Filtration Rate 69.2 mL/min (90-130); Glucose 96 mg/dL (65-115); Lactate Dehydrogenase 199 U/L (135-225); Osmolality Calculated 283 mOsm/kg (285-295); Sodium 136 mmol/L (136-145); Total Bilirubin 0.6 mg/dL (0.15-1.2); Total Protein 6.8 g/dL (6.6-8.7)
== END 2021-06-17 12:36 | disposition home or self-care (01) ==
PROVIDERS: Visit Provider Internal Medicine Medical Oncology
DX: C83.00 Small cell B-cell lymphoma, unspecified site (principal)
CPT/HCPCS: 36415; 80053; 83615; 85025

== ENCOUNTER 2021-10-29 14:14 | Oncology outpatient (recurring) (ONCR) | payer MEDICAID, SELFPAY ==
[2021-10-29 14:46] LABS: Basophils % 0.6 %; Eosinophils # 0.2 10^3/uL (0.0-0.8); Eosinophils % 3.5 %; Hematocrit 33.9 % (42.0-52.0); Hemoglobin 10.6 g/dL (11.7-16.6); Lymphocytes % 40.7 %; Mean Corpuscular HGB Conc 31.3 g/dL (30.0-36.0); Mean Corpuscular Hemoglobin 28.5 pg (28.0-34.0); Mean Corpuscular Volume 91.1 fl (80-94); Mean Platelet Volume 9.2 fL (7.4-10.4); Monocytes # 0.5 10^3/uL (0.2-0.9); Monocytes % 10.3 %; Neutrophils # 2.09 10^3/uL (1.8-7.7); Neutrophils % 43.2 %; Nucleated Red Blood Cells % 0 %; Platelet Count 151 10^3/cmm (130-400); Red Blood Count 3.72 10^6/uL (4.1-5.3); Red Cell Distribution Width 14.6 % (12.1-15.1); White Blood Count 4.8 10^3/uL (4.0-10.0)
[2021-10-29 15:12] LABS: Alanine Aminotransferase 12 U/L (0-41); Albumin Level 4.3 g/dL (3.5-5.2); Alkaline Phosphatase 101 IU/L (40-130); Anion Gap 11.9 (5-19); Aspartate Amino Transferase 18 U/L (0-40); Blood Urea Nitrogen 13 mg/dL (6-20); Calcium 9.2 mg/dL (8.5-10.5); Carbon Dioxide 30 mmol/L (22-29); Chloride 106 mmol/L (98-107); Globulin 2.7 g/dL (1.3-4.6); Glucose 81 mg/dL (65-115); Lactate Dehydrogenase 214 U/L (135-225); Osmolality Calculated 295 mOsm/kg (285-295); Potassium 4.9 mmol/L (3.5-5.1); Sodium 143 mmol/L (136-145); Total Bilirubin 0.6 mg/dL (0.15-1.2)
[2021-10-29 17:22] LABS: Ferritin 365 ng/mL (30-400); Iron 81 ug/dL (59-158); Percent Saturation 28.2 % (20-50); Total Iron Binding Capacity 287 mcg/dl; Unsaturated Iron Binding 206 ug/dL (112-347)
[2021-10-29 17:39] LABS: Vitamin B12 323 pg/mL (232-1245)
== END 2021-11-18 23:59 | disposition home or self-care (01) ==
PROVIDERS: Visit Provider Internal Medicine Medical Oncology
DX: C83.00 Small cell B-cell lymphoma, unspecified site (principal); D64.9 Anemia, unspecified; G62.0 Drug-induced polyneuropathy; T45.1X5A Adverse effect of antineoplastic and immunosuppressive drugs, initial encounter
CPT/HCPCS: 36415; 80053; 82607; 82728; 83540; 83550; 83615; 85025; 99214

== ENCOUNTER 2022-03-16 08:19 | Oncology outpatient (recurring) (ONCR) | payer MEDICAID, SELFPAY ==
[2022-03-16 09:11] LABS: Basophils % 0.7 %; Eosinophils # 0.1 10^3/uL (0.0-0.8); Eosinophils % 0.9 %; Hematocrit 29.6 % (42.0-52.0); Hemoglobin 8.9 g/dL (11.7-16.6); Lymphocytes # 2.8 10^3/uL (0.8-4.8); Lymphocytes % 51.8 %; Mean Corpuscular HGB Conc 30.1 g/dL (30.0-36.0); Mean Corpuscular Hemoglobin 27.3 pg (28.0-34.0); Mean Corpuscular Volume 90.8 fl (80-94); Mean Platelet Volume 9.8 fL (7.4-10.4); Monocytes # 0.3 10^3/uL (0.2-0.9); Neutrophils # 2.06 10^3/uL (1.8-7.7); Neutrophils % 38.4 %; Nucleated Red Blood Cells % 0.4 %; Platelet Count 172 10^3/cmm (130-400); Red Blood Count 3.26 10^6/uL (4.1-5.3); White Blood Count 5.4 10^3/uL (4.0-10.0)
[2022-03-16 09:37] LABS: Erythrocyte Sedimentation Rate 32 mm/hr (0-10)
[2022-03-16 09:38] LABS: Alanine Aminotransferase 15 U/L (0-41); Alkaline Phosphatase 122 U/L (40-130); Anion Gap 13.2 (5-19); Aspartate Amino Transferase 17 U/L (0-40); Blood Urea Nitrogen 15 mg/dL (6-20); Calcium 9.4 mg/dL (8.5-10.5); Carbon Dioxide 27 mmol/L (22-29); Chloride 102 mmol/L (98-107); Globulin 3.5 g/dL (1.3-4.6); Glomerular Filtration Rate 56.9 mL/min (90-130); Glucose 154 mg/dL (65-115); Lactate Dehydrogenase 255 U/L (135-225); Osmolality Calculated 290 mOsm/kg (285-295); Potassium 4.2 mmol/L (3.5-5.1); Sodium 138 mmol/L (136-145); Total Bilirubin 0.5 mg/dL (0.15-1.2); Total Protein 7.5 g/dL (6.6-8.7)
[2022-03-16 10:09] LABS: Reticulocyte % 3.9 % (0.5-2.0)
[2022-03-16 10:26] LABS: Ferritin 539 ng/mL (30-400); Iron 99 ug/dL (59-158); Total Iron Binding Capacity 291 mcg/dl; Unsaturated Iron Binding 192 ug/dL (112-347)
[2022-03-16 10:42] LABS: Vitamin B12 538 pg/mL (232-1245)
[2022-03-17 15:10] LABS: ALBUMIN 3.7 g/dL (3.8-4.8); ALPHA 1 GLOBULIN 0.5 g/dL (0.2-0.3); ALPHA 2 GLOBULIN 0.8 g/dL (0.5-0.9); BETA 1 GLOBULIN 0.5 g/dL (0.4-0.6); GAMMA GLOBULIN 0.5 g/dL (0.8-1.7)
== END 2022-03-20 23:59 | disposition home or self-care (01) ==
LOC: ONCMED 08:19
PROVIDERS: Internal Medicine Hematology & Oncology; Visit Provider Internal Medicine Medical Oncology
DX: D64.9 Anemia, unspecified (principal); D47.2 Monoclonal gammopathy
CPT/HCPCS: 36415; 80053; 82607; 82728; 83540; 83550; 83615; 84155; 84165; 85025; 85045; 85651

== ENCOUNTER 2022-05-05 14:00 | Oncology outpatient (recurring) (ONCR) | payer MEDICAID, SELFPAY ==
[2022-05-05 16:08] LABS: Basophils % 0.3 %; Eosinophils # 0.1 10^3/uL (0.0-0.8); Eosinophils % 1.6 %; Hematocrit 28.2 % (42.0-52.0); Hemoglobin 8.7 g/dL (11.7-16.6); Lymphocytes # 1.7 10^3/uL (0.8-4.8); Lymphocytes % 46.3 %; Mean Corpuscular HGB Conc 30.9 g/dL (30.0-36.0); Mean Corpuscular Hemoglobin 27.9 pg (28.0-34.0); Mean Corpuscular Volume 90.4 fl (80-94); Mean Platelet Volume 9.2 fL (7.4-10.4); Monocytes # 0.4 10^3/uL (0.2-0.9); Monocytes % 11.1 %; Neutrophils # 1.42 10^3/uL (1.8-7.7); Neutrophils % 38.5 %; Nucleated Red Blood Cells % 0.5 %; Platelet Count 112 10^3/cmm (130-400); Red Blood Count 3.12 10^6/uL (4.1-5.3); Red Cell Distribution Width 16.8 % (12.1-15.1); White Blood Count 3.7 10^3/uL (4.0-10.0)
[2022-05-05 16:28] LABS: LAB Peripheral Smear Sent for Review
[2022-05-05 16:30] LABS: Alanine Aminotransferase 9 U/L (0-41); Alkaline Phosphatase 97 U/L (40-130); Anion Gap 13.2 (5-19); Aspartate Amino Transferase 13 U/L (0-40); Blood Urea Nitrogen 17 mg/dL (6-20); Calcium 9.1 mg/dL (8.5-10.5); Carbon Dioxide 29 mmol/L (22-29); Chloride 103 mmol/L (98-107); Globulin 2.6 g/dL (1.3-4.6); Glucose 83 mg/dL (65-115); Lactate Dehydrogenase 212 U/L (135-225); Osmolality Calculated 293 mOsm/kg (285-295); Potassium 4.2 mmol/L (3.5-5.1); Sodium 141 mmol/L (136-145); Total Bilirubin 0.5 mg/dL (0.15-1.2); Total Protein 6.6 g/dL (6.6-8.7)
== END 2022-05-18 23:59 | disposition home or self-care (01) ==
PROVIDERS: PCP Internal Medicine Medical Oncology; Visit Provider Internal Medicine Medical Oncology
DX: C83.00 Small cell B-cell lymphoma, unspecified site (principal); Z92.25 Personal history of immunosuppression therapy; D70.9 Neutropenia, unspecified; D69.6 Thrombocytopenia, unspecified; G62.0 Drug-induced polyneuropathy; T45.1X5A Adverse effect of antineoplastic and immunosuppressive drugs, initial encounter; Z79.899 Other long term (current) drug therapy
CPT/HCPCS: 36415; 80053; 83615; 85025; 99214

== ENCOUNTER 2022-05-28 13:35 | Outpatient (CLI) | payer MEDICAID, SELFPAY ==
[2022-05-28] MEDS: iohexol 350 mg/mL 500 mL Btl (per mL) PO (13:40)
[2022-05-28] MEDS: iohexol 350 mg/mL 500 mL Btl (per mL) IV (13:40)
--- NOTE | 2022-05-28 15:00 | CT_ITS ---
WS: [id number] CT CHEST, ABDOMEN AND PELVIS WITH CONTRAST. HISTORY: Restaging lymphoma. TECHNIQUE: Contiguous 5 mm axial imaging performed through the chest, abdomen and pelvis with IV cont rast, oral contrast has been provided. Coronal and sagittal reformats chest. Coronal and sagittal ref ormats through the abdomen and pelvis. All CT scans at [facility] use at least one of these d ose optimization techniques: automated exposure control; mA and/or kV adjustment per patient size (in cludes targeted exams where dose is matched to clinical indication); or iterative reconstruction. CONTRAST: Omnipaque 350; 100 mL IV. DLP: 1858.88 mGy.cm COMPARISON: PET scan 04/29/[address]: Lungs are clear. No mass or pneumonia. No pericardial or pleural effusions. Supraclavicular/inferior neck and axillary lymphadenopathy persists. No significant improvement. The largest lymph node in the RIGHT axilla measures 2.2 cm in short axis diameter. No significantly enlar ged mediastinal or hilar lymph nodes. Normal size aortic and pulmonary artery. Single 1.2 cm pericard ial lymph node. Abdomen CT: Liver and spleen are mildly enlarged. Spleen measures 16.0 cm in length similar to the pr ior study. Mildly contracted gallbladder. Normal pancreas and adrenal glands. No renal obstruction. M ild atherosclerosis aorta. There is extensive, predominantly retroperitoneal lymphadenopathy which has not improved since the pr ior study. The largest lymph node periaortic region at the level of the kidney measures 2.1 cm. There are numerous additional retroperitoneal, aortocaval and precaval lymph nodes. There are a few very s mall mesenteric lymph nodes at the root. Unremarkable stomach. No small bowel obstruction. Mild diffuse fecal retention and constipation. Norm al appendix. Pelvic CT: Bilateral deep inguinal lymph nodes measure up to 2.3 cm. Slight increase in size since th e prior exam. Bilateral superficial lymph nodes measure up to 2.1 cm. RIGHT external iliac chain lymp h node 1.8 cm. There is an additional 1.5 cm lymph node adjacent to the RIGHT ilium. No osteoblastic or osteolytic bone disease. CT/CT chest abdpel w/*[id number] IMPRESSION: 1. Comparison is made to a prior PET/CT from 04/29/2018. 2. Persistent lymphadenopathy in the inferior neck, axilla, pericardiac, retro peritoneal and pelvic as described above. 3. No significant improvement in the lymphadenopathy. Several of the lymph nod es have increased slightly in size by approximately 2 to 3 mm. Inguinal and RIG HT pelvic and retroperitoneal lymph nodes have increased in size. 4. The axillary and inferior neck lymph nodes not significantly changed. 5. Splenomegaly, 16.0 cm.
== END 2022-05-28 13:36 | disposition home or self-care (01) ==
PROVIDERS: Visit Provider Internal Medicine Medical Oncology
DX: C83.00 Small cell B-cell lymphoma, unspecified site (principal); R16.0 Hepatomegaly, not elsewhere classified; R59.0 Localized enlarged lymph nodes
CPT/HCPCS: 71260; 74177; Q9967

== ENCOUNTER → 2022-07-29 08:01 | Day surgery (SDC) | payer MEDICAID, SELFPAY ==
[2022-07-29] VITALS (10 sets, daily range): BP systolic 106–130; BP diastolic 41–66; PULSE 41–47; RESP 18; TEMP 36.2–36.7; O2SAT 96–99
[2022-07-29] MEDS: diphenhydrAMINE 25 mg Capsule PO (08:17)
[2022-07-29] MEDS: acetaminophen 325 mg Tablet 650 MG PO (08:17)
[2022-07-29] MEDS: sodium chloride 0.9% 250 mL Bag IV (08:19)
--- NOTE | 2022-07-29 12:38 | PC.NURSE ---
Pt to GI infusions for blood transfusion. Two units irradiated PRBC's transfused as ordered. No reaction noted.
== END ==
PROVIDERS: Visit Provider Nurse Practitioner Family
DX: D64.9 Anemia, unspecified (principal); Z79.899 Other long term (current) drug therapy
CPT/HCPCS: 36430; 86850; 86900; 86920; J2920; J7050; P9040

== ENCOUNTER 2022-08-04 | Outpatient (CLI) | payer MEDICAID, SELFPAY ==
[2022-08-04 11:23] LABS: Basophils % 0.3 %; Eosinophils % 0.6 %; Hematocrit 29.8 % (42.0-52.0); Hemoglobin 8.9 g/dL (11.7-16.6); Lymphocytes # 4.2 10^3/uL (0.8-4.8); Lymphocytes % 66.4 %; Mean Corpuscular HGB Conc 29.9 g/dL (30.0-36.0); Mean Corpuscular Hemoglobin 28.2 pg (28.0-34.0); Mean Corpuscular Volume 94.3 fl (80-94); Mean Platelet Volume 10.8 fL (7.4-10.4); Monocytes # 0.3 10^3/uL (0.2-0.9); Monocytes % 4.6 %; Neutrophils # 1.62 10^3/uL (1.8-7.7); Neutrophils % 25.9 %; Nucleated Red Blood Cells # 0.1 /100WBC; Nucleated Red Blood Cells % 1.3 %; Platelet Count 90 10^3/cmm (130-400); Red Blood Count 3.16 10^6/uL (4.1-5.3); Red Cell Distribution Width 17.7 % (12.1-15.1); White Blood Count 6.3 10^3/uL (4.0-10.0)
== END 2022-08-04 23:00 | disposition home or self-care (01) ==
PROVIDERS: PCP Internal Medicine Medical Oncology; Visit Provider Internal Medicine Medical Oncology
DX: D64.9 Anemia, unspecified (principal)
CPT/HCPCS: 36415; 85025

== ENCOUNTER 2022-08-11 14:30 | Oncology outpatient (recurring) (ONCR) | payer MEDICAID, SELFPAY ==
[2022-07-28 12:40] LABS: Basophils % 0.3 %; Eosinophils # 0.1 10^3/uL (0.0-0.8); Eosinophils % 1.7 %; Hematocrit 22.1 % (42.0-52.0); Lymphocytes # 1.4 10^3/uL (0.8-4.8); Lymphocytes % 48.8 %; Mean Corpuscular HGB Conc 29.4 g/dL (30.0-36.0); Mean Corpuscular Hemoglobin 27.2 pg (28.0-34.0); Mean Corpuscular Volume 92.5 fl (80-94); Mean Platelet Volume 9.8 fL (7.4-10.4); Monocytes # 0.1 10^3/uL (0.2-0.9); Monocytes % 3.1 %; Neutrophils % 44.4 %; Nucleated Red Blood Cells % 0.7 %; Platelet Count 92 10^3/cmm (130-400); Red Blood Count 2.39 10^6/uL (4.1-5.3); Red Cell Distribution Width 17.6 % (12.1-15.1); White Blood Count 2.9 10^3/uL (4.0-10.0)
[2022-07-28 12:42] LABS: Hemoglobin 6.5 g/dL (11.7-16.6)
[2022-07-28 12:57] LABS: Alanine Aminotransferase 8 U/L (0-41); Albumin Level 4.1 g/dL (3.5-5.2); Alkaline Phosphatase 100 U/L (40-130); Anion Gap 15.2 (5-19); Aspartate Amino Transferase 14 U/L (0-40); Blood Urea Nitrogen 18 mg/dL (6-20); Calcium 8.3 mg/dL (8.5-10.5); Carbon Dioxide 25 mmol/L (22-29); Chloride 103 mmol/L (98-107); Globulin 2.8 g/dL (1.3-4.6); Glomerular Filtration Rate 68.8 mL/min (90-130); Glucose 129 mg/dL (65-115); Lactate Dehydrogenase 207 U/L (135-225); Osmolality Calculated 292 mOsm/kg (285-295); Potassium 4.2 mmol/L (3.5-5.1); Sodium 139 mmol/L (136-145); Total Bilirubin 0.5 mg/dL (0.15-1.2); Total Protein 6.9 g/dL (6.6-8.7)
[2022-08-11 14:34] LABS: Basophils % 0.2 %; Eosinophils # 0.1 10^3/uL (0.0-0.8); Eosinophils % 1.5 %; Hemoglobin 9.2 g/dL (11.7-16.6); Lymphocytes % 60.9 %; Mean Corpuscular HGB Conc 30.7 g/dL (30.0-36.0); Mean Corpuscular Hemoglobin 28.2 pg (28.0-34.0); Mean Platelet Volume 10.1 fL (7.4-10.4); Monocytes # 0.3 10^3/uL (0.2-0.9); Monocytes % 5.1 %; Neutrophils # 2.06 10^3/uL (1.8-7.7); Neutrophils % 31.1 %; Nucleated Red Blood Cells % 0.5 %; Platelet Count 87 10^3/cmm (130-400); Red Blood Count 3.26 10^6/uL (4.1-5.3); Red Cell Distribution Width 17.8 % (12.1-15.1); White Blood Count 6.6 10^3/uL (4.0-10.0)
[2022-08-11 14:52] LABS: Alanine Aminotransferase 11 U/L (0-41); Albumin Level 4.2 g/dL (3.5-5.2); Alkaline Phosphatase 83 U/L (40-130); Anion Gap 11.2 (5-19); Aspartate Amino Transferase 21 U/L (0-40); Blood Urea Nitrogen 13 mg/dL (6-20); Calcium 9.2 mg/dL (8.5-10.5); Carbon Dioxide 25 mmol/L (22-29); Chloride 104 mmol/L (98-107); Globulin 2.2 g/dL (1.3-4.6); Glomerular Filtration Rate 68.8 mL/min (90-130); Glucose 91 mg/dL (65-115); Lactate Dehydrogenase 241 U/L (135-225); Osmolality Calculated 282 mOsm/kg (285-295); Potassium 4.2 mmol/L (3.5-5.1); Sodium 136 mmol/L (136-145); Total Bilirubin 0.8 mg/dL (0.15-1.2); Total Protein 6.4 g/dL (6.6-8.7)
== END 2022-08-18 23:59 | disposition home or self-care (01) ==
PROVIDERS: Nurse Practitioner Family; Visit Provider Internal Medicine Medical Oncology
DX: C83.08 Small cell B-cell lymphoma, lymph nodes of multiple sites (principal); R53.83 Other fatigue; M25.59 Pain in other specified joint; G62.9 Polyneuropathy, unspecified; Z79.899 Other long term (current) drug therapy; Z87.891 Personal history of nicotine dependence; Z92.25 Personal history of immunosuppression therapy
CPT/HCPCS: 36415; 80053; 83615; 85025; 86920; 99214

== ENCOUNTER 2022-09-08 11:09 | Oncology outpatient (recurring) (ONCR) | payer MEDICAID, SELFPAY ==
[2022-09-08 11:23] VITALS: BP 134/77; PULSE 68; RESP 18; TEMP 36.7; O2SAT 96
[2022-09-08 11:33] LABS: Basophils % 0.6 %; Eosinophils # 0.1 10^3/uL (0.0-0.8); Eosinophils % 1.7 %; Hematocrit 35.3 % (42.0-52.0); Hemoglobin 11.5 g/dL (11.7-16.6); Lymphocytes # 3.6 10^3/uL (0.8-4.8); Mean Corpuscular HGB Conc 32.6 g/dL (30.0-36.0); Mean Corpuscular Hemoglobin 29.6 pg (28.0-34.0); Mean Platelet Volume 9.9 fL (7.4-10.4); Monocytes # 0.5 10^3/uL (0.2-0.9); Monocytes % 7.1 %; Neutrophils # 2.32 10^3/uL (1.8-7.7); Nucleated Red Blood Cells % 0.3 %; Platelet Count 107 10^3/cmm (130-400); Red Blood Count 3.88 10^6/uL (4.1-5.3); White Blood Count 6.6 10^3/uL (4.0-10.0)
[2022-09-08 11:49] LABS: Alanine Aminotransferase 16 U/L (0-41); Albumin Level 4.2 g/dL (3.5-5.2); Alkaline Phosphatase 85 U/L (40-130); Anion Gap 11.3 (5-19); Aspartate Amino Transferase 16 U/L (0-40); Blood Urea Nitrogen 12 mg/dL (6-20); Carbon Dioxide 29 mmol/L (22-29); Chloride 100 mmol/L (98-107); Globulin 1.9 g/dL (1.3-4.6); Glomerular Filtration Rate 76.7 mL/min (90-130); Glucose 86 mg/dL (65-115); Lactate Dehydrogenase 197 U/L (135-225); Osmolality Calculated 281 mOsm/kg (285-295); Potassium 4.3 mmol/L (3.5-5.1); Sodium 136 mmol/L (136-145); Total Bilirubin 0.6 mg/dL (0.15-1.2); Total Protein 6.1 g/dL (6.6-8.7)
== END 2022-09-17 23:59 | disposition home or self-care (01) ==
PROVIDERS: PCP Internal Medicine Medical Oncology; Visit Provider Internal Medicine Medical Oncology
DX: C83.00 Small cell B-cell lymphoma, unspecified site (principal); Z92.25 Personal history of immunosuppression therapy; Z79.899 Other long term (current) drug therapy
CPT/HCPCS: 36415; 80053; 83615; 85025; 99214

== ENCOUNTER 2022-10-06 11:34 | Oncology outpatient (recurring) (ONCR) | payer MEDICAID, SELFPAY ==
[2022-10-06 11:39] VITALS: BP 125/72; PULSE 49; RESP 16; TEMP 36.3; O2SAT 94
[2022-10-06 11:40] VITALS: BMI 32.7
[2022-10-06 11:54] LABS: Basophils % 0.4 %; Eosinophils # 0.2 10^3/uL (0.0-0.8); Eosinophils % 2.9 %; Hematocrit 37.1 % (42.0-52.0); Hemoglobin 12.4 g/dL (11.7-16.6); Lymphocytes # 2.8 10^3/uL (0.8-4.8); Lymphocytes % 54.7 %; Mean Corpuscular HGB Conc 33.4 g/dL (30.0-36.0); Mean Corpuscular Hemoglobin 30.2 pg (28.0-34.0); Mean Corpuscular Volume 90.3 fl (80-94); Mean Platelet Volume 10.8 fL (7.4-10.4); Monocytes # 0.4 10^3/uL (0.2-0.9); Monocytes % 7.2 %; Neutrophils # 1.77 10^3/uL (1.8-7.7); Neutrophils % 34.4 %; Nucleated Red Blood Cells % 0 %; Platelet Count 117 10^3/cmm (130-400); Red Blood Count 4.11 10^6/uL (4.1-5.3); Red Cell Distribution Width 13.4 % (12.1-15.1); White Blood Count 5.1 10^3/uL (4.0-10.0)
[2022-10-06 12:10] LABS: Alanine Aminotransferase 17 U/L (0-41); Albumin Level 4.2 g/dL (3.5-5.2); Alkaline Phosphatase 86 U/L (40-130); Aspartate Amino Transferase 19 U/L (0-40); Blood Urea Nitrogen 17 mg/dL (6-20); Calcium 8.9 mg/dL (8.5-10.5); Carbon Dioxide 26 mmol/L (22-29); Chloride 105 mmol/L (98-107); Globulin 1.6 g/dL (1.3-4.6); Glomerular Filtration Rate 68.8 mL/min (90-130); Glucose 98 mg/dL (65-115); Lactate Dehydrogenase 214 U/L (135-225); Osmolality Calculated 288 mOsm/kg (285-295); Sodium 138 mmol/L (136-145); Total Bilirubin 0.6 mg/dL (0.15-1.2); Total Protein 5.8 g/dL (6.6-8.7)
== END 2022-10-18 23:59 | disposition home or self-care (01) ==
PROVIDERS: Nurse Practitioner Family; PCP Internal Medicine Medical Oncology; Visit Provider Internal Medicine Medical Oncology
DX: Z92.25 Personal history of immunosuppression therapy; Z79.899 Other long term (current) drug therapy; C83.00 Small cell B-cell lymphoma, unspecified site
CPT/HCPCS: 36415; 80053; 83615; 85025; 99214

== ENCOUNTER 2023-02-14 10:52 | Oncology outpatient (recurring) (ONCR) | payer MEDICAID, SELFPAY ==
[2023-02-14 11:04] VITALS: BP 127/65; PULSE 50; RESP 16; TEMP 36.7; O2SAT 96
[2023-02-14 11:22] LABS: Basophils % 0.4 %; Eosinophils # 0.1 10^3/uL (0.0-0.8); Eosinophils % 1.6 %; Hematocrit 42.9 % (37-53); Lymphocytes # 2.1 10^3/uL (0.8-4.8); Lymphocytes % 42.3 %; Mean Corpuscular HGB Conc 34.3 g/dL (30-55); Mean Corpuscular Hemoglobin 30.4 pg (27-33); Mean Corpuscular Volume 88.6 fl (82-101); Mean Platelet Volume 10.8 fL (7.4-10.4); Monocytes # 0.4 10^3/uL (0.2-0.9); Monocytes % 7.7 %; Neutrophils # 2.37 10^3/uL (1.8-7.7); Neutrophils % 47.8 %; Nucleated Red Blood Cells % 0 %; Platelet Count 128 10^3/cmm (157-399); Red Blood Count 4.84 10^6/uL (3.85-5.65); Red Cell Distribution Width 12.4 % (12.1-15.1); White Blood Count 4.96 10^3/uL (3.29-11.43)
[2023-02-14 11:42] LABS: Alanine Aminotransferase 32 U/L (0-41); Albumin Level 4.2 g/dL (3.5-5.2); Alkaline Phosphatase 106 U/L (40-130); Anion Gap 12.5 (5-19); Aspartate Amino Transferase 22 U/L (0-40); Blood Urea Nitrogen 16 mg/dL (6-20); Carbon Dioxide 27 mmol/L (22-29); Chloride 104 mmol/L (98-107); Globulin 1.8 g/dL (1.3-4.6); Glomerular Filtration Rate 76.7 mL/min (90-130); Glucose 95 mg/dL (65-115); Lactate Dehydrogenase 205 U/L (135-225); Osmolality Calculated 289 mOsm/kg (285-295); Potassium 4.5 mmol/L (3.5-5.1); Sodium 139 mmol/L (136-145); Total Bilirubin 0.7 mg/dL (0.15-1.2)
== END 2023-02-17 23:59 | disposition home or self-care (01) ==
PROVIDERS: PCP Internal Medicine Medical Oncology; Visit Provider Internal Medicine Medical Oncology
DX: C83.00 Small cell B-cell lymphoma, unspecified site (principal); Z92.25 Personal history of immunosuppression therapy; D70.9 Neutropenia, unspecified; D69.6 Thrombocytopenia, unspecified; G62.0 Drug-induced polyneuropathy; T45.1X5A Adverse effect of antineoplastic and immunosuppressive drugs, initial encounter; Z79.899 Other long term (current) drug therapy
CPT/HCPCS: 36415; 80053; 83615; 85025; 99214

== ENCOUNTER 2023-05-18 11:22 | Oncology outpatient (recurring) (ONCR) | payer MEDICAID, SELFPAY ==
[2023-05-18 11:51] LABS: Basophils % 0.4 %; Eosinophils # 0.1 10^3/uL (0.0-0.8); Eosinophils % 1.6 %; Hematocrit 44.8 % (37-53); Lymphocytes # 1.9 10^3/uL (0.8-4.8); Lymphocytes % 39.4 %; Mean Corpuscular Hemoglobin 30.9 pg (27-33); Mean Corpuscular Volume 88.2 fl (82-101); Mean Platelet Volume 10.3 fL (7.4-10.4); Monocytes # 0.3 10^3/uL (0.2-0.9); Monocytes % 5.1 %; Neutrophils # 2.62 10^3/uL (1.8-7.7); Neutrophils % 53.3 %; Nucleated Red Blood Cells % 0 %; Platelet Count 137 10^3/cmm (157-399); Red Blood Count 5.08 10^6/uL (3.85-5.65); Red Cell Distribution Width 12.5 % (12.1-15.1); White Blood Count 4.92 10^3/uL (3.29-11.43)
[2023-05-18 12:10] LABS: Alanine Aminotransferase 41 U/L (0-41); Albumin Level 4.3 g/dL (3.5-5.2); Alkaline Phosphatase 126 U/L (40-130); Anion Gap 14.2 (5-19); Aspartate Amino Transferase 27 U/L (0-40); Blood Urea Nitrogen 13 mg/dL (6-20); Calcium 8.7 mg/dL (8.5-10.5); Carbon Dioxide 27 mmol/L (22-29); Chloride 102 mmol/L (98-107); Globulin 1.9 g/dL (1.3-4.6); Glomerular Filtration Rate 86.7 mL/min (90-130); Glucose 104 mg/dL (65-115); Osmolality Calculated 288 mOsm/kg (285-295); Potassium 4.2 mmol/L (3.5-5.1); Sodium 139 mmol/L (136-145); Total Bilirubin 0.7 mg/dL (0.15-1.2); Total Protein 6.2 g/dL (6.6-8.7)
[2023-05-18 12:13] LABS: Lactate Dehydrogenase 220 U/L (135-225)
[2023-05-19 08:25] LABS: PROTEIN, TOTAL 5.8 g/dL (6.1-8.1)
[2023-05-19 17:54] LABS: ALBUMIN 4.1 g/dL (3.8-4.8); ALPHA 1 GLOBULIN 0.3 g/dL (0.2-0.3); ALPHA 2 GLOBULIN 0.4 g/dL (0.5-0.9); BETA 1 GLOBULIN 0.4 g/dL (0.4-0.6); BETA 2 GLOBULIN 0.2 g/dL (0.2-0.5); GAMMA GLOBULIN 0.4 g/dL (0.8-1.7)
== END 2023-05-19 23:59 | disposition home or self-care (01) ==
PROVIDERS: PCP Internal Medicine Medical Oncology; Visit Provider Internal Medicine Medical Oncology
DX: C83.00 Small cell B-cell lymphoma, unspecified site (principal); Z79.899 Other long term (current) drug therapy; Z87.891 Personal history of nicotine dependence; D47.2 Monoclonal gammopathy; Z79.622 Long term (current) use of Janus kinase inhibitor
CPT/HCPCS: 36415; 80053; 83615; 84155; 84165; 85025; 99214

== ENCOUNTER 2023-08-17 12:36 | Oncology outpatient (recurring) (ONCR) | payer MEDICAID, SELFPAY ==
[2023-08-17 13:01] LABS: Basophils % 0.4 %; Eosinophils # 0.1 10^3/uL (0.0-0.8); Eosinophils % 2.4 %; Hematocrit 41.5 % (37-53); Lymphocytes # 1.9 10^3/uL (0.8-4.8); Lymphocytes % 35.3 %; Mean Corpuscular HGB Conc 35.4 g/dL (30-55); Mean Corpuscular Hemoglobin 31.2 pg (27-33); Mean Corpuscular Volume 88.1 fl (82-101); Mean Platelet Volume 10.7 fL (7.4-10.4); Monocytes # 0.2 10^3/uL (0.2-0.9); Monocytes % 4.4 %; Neutrophils # 3.09 10^3/uL (1.8-7.7); Neutrophils % 57.1 %; Nucleated Red Blood Cells % 0 %; Platelet Count 114 10^3/cmm (157-399); Red Blood Count 4.71 10^6/uL (3.85-5.65); Red Cell Distribution Width 12.4 % (12.1-15.1); White Blood Count 5.41 10^3/uL (3.29-11.43)
[2023-08-17 13:16] LABS: Alanine Aminotransferase 30 U/L (0-41); Albumin Level 4.1 g/dL (3.5-5.2); Alkaline Phosphatase 119 U/L (40-130); Anion Gap 12.4 (5-19); Aspartate Amino Transferase 21 U/L (0-40); Blood Urea Nitrogen 15 mg/dL (6-20); Carbon Dioxide 26 mmol/L (22-29); Chloride 109 mmol/L (98-107); Globulin 1.8 g/dL (1.3-4.6); Glomerular Filtration Rate 86.4 mL/min (90-130); Glucose 134 mg/dL (65-115); Lactate Dehydrogenase 193 U/L (135-225); Osmolality Calculated 299 mOsm/kg (285-295); Potassium 4.4 mmol/L (3.5-5.1); Sodium 143 mmol/L (136-145); Total Bilirubin 0.5 mg/dL (0.15-1.2); Total Protein 5.9 g/dL (6.6-8.7)
== END 2023-08-19 23:59 | disposition home or self-care (01) ==
PROVIDERS: Nurse Practitioner Family; PCP Internal Medicine Medical Oncology; Visit Provider Internal Medicine Medical Oncology
DX: C83.00 Small cell B-cell lymphoma, unspecified site (principal); Z53.9 Procedure and treatment not carried out, unspecified reason
CPT/HCPCS: 36415; 80053; 83615; 85025; 99214

== ENCOUNTER 2023-11-24 10:33 | Oncology outpatient (recurring) (ONCR) | payer MEDICAID, SELFPAY ==
[2023-11-24 11:14] LABS: Basophils % 0.4 %; Eosinophils # 0.1 10^3/uL (0.0-0.8); Eosinophils % 2.3 %; Hematocrit 42.8 % (37-53); Lymphocytes # 1.6 10^3/uL (0.8-4.8); Lymphocytes % 28.8 %; Mean Corpuscular HGB Conc 35.3 g/dL (30-55); Mean Corpuscular Hemoglobin 30.9 pg (27-33); Mean Corpuscular Volume 87.7 fl (82-101); Mean Platelet Volume 10.7 fL (7.4-10.4); Monocytes # 0.5 10^3/uL (0.2-0.9); Monocytes % 8.5 %; Neutrophils # 3.36 10^3/uL (1.8-7.7); Neutrophils % 59.6 %; Nucleated Red Blood Cells % 0 %; Platelet Count 141 10^3/cmm (157-399); Red Blood Count 4.88 10^6/uL (3.85-5.65); White Blood Count 5.63 10^3/uL (3.29-11.43)
[2023-11-24 11:22] LABS: INR 1.07 (0.8-1.2)
[2023-11-24 11:32] LABS: Alanine Aminotransferase 34 U/L (0-41); Albumin Level 4.2 g/dL (3.5-5.2); Alkaline Phosphatase 101 U/L (40-130); Anion Gap 13.6 (5-19); Aspartate Amino Transferase 25 U/L (0-40); Blood Urea Nitrogen 15 mg/dL (6-20); Calcium 8.2 mg/dL (8.5-10.5); Carbon Dioxide 27 mmol/L (22-29); Chloride 106 mmol/L (98-107); Globulin 1.8 g/dL (1.3-4.6); Glomerular Filtration Rate 98.9 mL/min (90-130); Glucose 103 mg/dL (65-115); Lactate Dehydrogenase 208 U/L (135-225); Osmolality Calculated 295 mOsm/kg (285-295); Potassium 4.6 mmol/L (3.5-5.1); Sodium 142 mmol/L (136-145); Total Bilirubin 0.6 mg/dL (0.15-1.2)
[2023-11-24 11:33] LABS: Valproic Acid Level 70.7 ug/mL (50-100)
== END 2023-12-19 23:59 | disposition home or self-care (01) ==
PROVIDERS: Nurse Practitioner; PCP Internal Medicine Medical Oncology; Visit Provider Internal Medicine Medical Oncology
DX: C83.00 Small cell B-cell lymphoma, unspecified site (principal); G62.9 Polyneuropathy, unspecified; D47.2 Monoclonal gammopathy; F31.77 Bipolar disorder, in partial remission, most recent episode mixed; Z79.899 Other long term (current) drug therapy
CPT/HCPCS: 36415; 80053; 80164; 83615; 85025; 85610; 99214

== ENCOUNTER → 2023-12-01 14:47 | Outpatient (BNVA) | payer MEDICAID, SELFPAY | PROVIDERS: PCP Internal Medicine Medical Oncology; Visit Provider Surgery | DX: K42.9 Umbilical hernia without obstruction or gangrene (principal) | CPT/HCPCS: 99204 ==

== ENCOUNTER 2023-12-20 09:42 | Day surgery (SDC) | payer MEDICAID, SELFPAY ==
[2023-12-20] VITALS (11 sets, daily range): BP systolic 126–152; BP diastolic 69–88; PULSE 48–65; RESP 12–18; TEMP 36.2–36.6; O2SAT 96–100; BMI 33.7
[2023-12-20] MEDS: sodium chloride 0.9% 1,000 ML 30 ML IV (10:53)
--- NOTE | 2023-12-20 11:15 | ANES.PREANE2 ---
Pre-Anesthetic Assessment Height/Weight: Height 5 ft 11 in Weight 242 lb Temp Pulse Resp BP Pulse Ox O2 Del Method 97.8 F 48 L 18 147/88 98 Room Air 12/20/23 10:18 12/20/23 10:18 12/20/23 10:18 12/20/23 10:18 12/20/23 10:18 12/20/23 10:26 Preop Diagnosis: Cholecystitis Operation Date: 12/20/23 11:20 Proposed Procedures p Laparoscopic Cholecystectomy 67509, 95135, K42.9(Not Applicable) - Marshall Armando DO s Laparoscopic Ventral Hernia Repair Laparoscopic Umbilical Hernia Repair(Not Applicable) - Marshall Armando DO Was Beta Eusebio taken within 24 hours: N/A Was Clonidine taken within 24 hours: N/A Last intake: Intake Last Liquid Date 12/19/23 Last Liquid Time 20:00 Last Solid Date 12/19/23 Last Solid Time 20:00 Social No alcohol and No tobacco Exam alert, oriented x 3, clear to auscultation bilaterally and regular rate & rhythm Airway Submandibular: within normal limits Cervical ROM: within normal limits Mallampati: Class III Dentition: full Comments: Comments: Few missing teeth Anesthetic Plan ASA status: 2 Anesthesia: General Other: No prior issues with anesthesia NPO since midnight Prior small cell lymphoma, completed chemotherapy Patient reports seizures with chemotherapy drugs, on Depakote. No seizure in years Patient denies any cardiac or lung issues METs greater than 4 Labs 11/24/2023 reviewed acceptable for surgery Plan for GETA Medications/Allergies Home Medications Medication Instructions Recorded Confirmed Last Taken Type divalproex 500 mg tablet,delayed 1,000 mg PO DAILY 08/11/22 12/19/23 12/19/23 History release (Depakote) zanubrutinib 80 mg capsule 160 mg (2 x 80 mg) PO DAILY #60 09/19/23 12/19/23 12/19/23 Rx (Brukinsa) caps aripiprazole 10 mg tablet 10 mg PO 1XD 11/24/23 12/19/23 12/19/23 History bupropion HCl 150 mg 24 hr tablet, 150 mg PO 1XD 11/24/23 12/19/23 12/19/23 History extended release Allergies Allergy/AdvReac Type Severity Reaction Status Date / Time ziprasidone [From [facility]] Allergy ADR/ALGY-Pa Verified 11/24/23 12:04 lpitations Current Medications Generic Name Dose Route Start Last Admin Trade Name Freq PRN Reason Stop Dose Admin Sodium Chloride 1,000 mls @ 30 mls/hr 12/20/23 10:00 12/20/23 10:53 Sodium Chloride 0.9% IV 12/21/23 09:59 30 mls/hr .Q24H LINNETTE Administration PFSH Anesthesia Medical History Marginal zone lymphoma Bipolar disorder Depression Surgical History History of lymph node biopsy (07/24/18) Left axillary lymph node biopsy History of bone marrow biopsy (05/04/18) History of bone marrow biopsy (08/24/17) History of vasectomy Family History Father Cancer Asbestosis Lung disease Mother Psychiatric illness Bipolar Suicide Denies family history of Diabetes CAD (coronary artery disease) Clotting disorder Dementia Hyperlipidemia Chronic kidney disease (CKD) Anesthesia complication Bleeding disorder Hypertension Stroke Social History Smoking and tobacco/nicotine status: former use of tobacco/nicotine Alcohol intake: never Data Anesthesia Cardiac Studies: No Data to Display
--- NOTE | 2023-12-20 11:20 | W.PM.OPSUD ---
Surgery/Procedure H&P Update DATE OF PROCEDURE: December 20, 2023 DATE H&P PERFORMED: 12/01/23 H&P UPDATE INFORMATION: I have reviewed H&P completed within last 30 days, I have examined patient prior to procedure and No changes to prior documentation PREOP DIAGNOSIS: Cholecystitis PLANNED PROCEDURE: Operation Date: 12/20/23 11:20 Proposed Procedures p Laparoscopic Cholecystectomy 83358, 93264, K42.9(Not Applicable) - DO jacki Philippe Laparoscopic Ventral Hernia Repair Laparoscopic Umbilical Hernia Repair(Not Applicable) - Marshall Armando DO
[2023-12-20] MEDS: ceFAZolin 2,000 mg SDV 2000 MG IVP (11:24)
[2023-12-20] MEDS: lidocaine-epi 2% PF 1:200,000 20 mL SDV XX (11:45)
--- NOTE | 2023-12-20 12:07 | P.OP_ITS ---
Operative Report Date of procedure: December 20, 2023 Pre-op diagnosis: Umbilical hernia Post-op diagnosis: same Procedure done: Laparoscopic repair of umbilical hernia with mesh Implants: 11 cm round Ventralight mesh Specimens removed/disposition: Hernia sac Surgeon: Marshall Armando DO Anesthesia: General and Local Estimated blood loss (mL): 5 Complications: None apparent Brief History: This is a very pleasant 58-year-old gentleman presented my office with an umbilical hernia. It had gotten larger and was causing him pain. He desired repair. Laparoscopic umbilical hernia repair with mesh was indicated. The risks and benefits were explained and documented. Procedure: Patient was wheeled into the operative room and placed on the OR table in a supine position. Abdomen was inspected prepped and draped in usual sterile fashion. Time-out was performed and all present were in agreement. A 15 blade scalp was used to make a 5 millimeter incision left upper quadrant. A Veress needle was placed into the incision and intra-abdominal insufflation was brought to 15 millimeters of mercury. A 12 millimeter trocar was placed into the left lower quadrant. The energy but device was then used to cut out the hernia sac. Hernia defect measures 1.5 cm in diameter. An 11 cm Ventralight mesh was placed into the abdomen and brought up through the umbilicus using an the Jamshid- Joan. The mesh was then tacked in place in a double crown fashion. The skeleton of the mesh was removed via the left lower quadrant. The hernia sac was then removed from the abdomen via the left lower quadrant. The left lower quadrant port site was closed with an 0 Vicryl suture in a Jamshid-Joan in a [id number] fashion. Incisions were closed with 4 O Vicryl in a subcuticular interrupted fashion. Skin glue was applied. A dressing that included cotton balls and a Tegaderm was placed over the umbilicus. Patient tolerated the procedure well.
[2023-12-20] MEDS: fentaNYL 50 mcg/mL INJ 2mL IVP (12:26)
--- NOTE | 2023-12-20 13:40 | ANE.PACU2 ---
Inpatient post-anesthesia follow up: Airway intact: Yes Vital signs: Temperature 97.7 F Pulse Rate 50 Respiratory Rate 17 Blood Pressure 136/81 Pulse Oximetry 96 Oxygen Delivery Me thod Room Air Oxygen Flow Rate 6 Fraction of Inspir ed Oxygen Hydration adequate: Yes Nausea and vomiting: No Pain level: 1 Mental status: Baseline
== END 2023-12-20 13:40 | disposition home or self-care (01) ==
PROVIDERS: PCP Internal Medicine Medical Oncology; Visit Provider Surgery
PROC: 0WQF4ZZ Repair Abdominal Wall, Percutaneous Endoscopic Approach (ICD-10-PCS; CPT 49591; 2023-12-20 11:20)
DX: K42.9 Umbilical hernia without obstruction or gangrene (principal); F32.A Depression, unspecified; Z87.891 Personal history of nicotine dependence
CPT/HCPCS: 49591; 88302; C1781; J0690; J2250; J2704; J2710; J3010; J3490; J7030

== ENCOUNTER → 2024-01-02 09:42 | Outpatient (BNVA) | payer MEDICAID, SELFPAY | PROVIDERS: PCP Internal Medicine Medical Oncology; Visit Provider Podiatrist Foot & Ankle Surgery | DX: R03.0 Elevated blood-pressure reading, without diagnosis of hypertension; I87.2 Venous insufficiency (chronic) (peripheral); G62.0 Drug-induced polyneuropathy; T45.1X5A Adverse effect of antineoplastic and immunosuppressive drugs, initial encounter; M21.41 Flat foot [pes planus] (acquired), right foot; M21.42 Flat foot [pes planus] (acquired), left foot; C83.00 Small cell B-cell lymphoma, unspecified site; D47.2 Monoclonal gammopathy; D58.2 Other hemoglobinopathies | CPT/HCPCS: 99203 ==

== ENCOUNTER → 2024-01-09 08:29 | Outpatient (BNVA) | payer MEDICAID, SELFPAY | PROVIDERS: PCP Internal Medicine Medical Oncology; Visit Provider Surgery | DX: R03.0 Elevated blood-pressure reading, without diagnosis of hypertension (principal); Z98.890 Other specified postprocedural states; Z87.19 Personal history of other diseases of the digestive system | CPT/HCPCS: 99024 ==

== ENCOUNTER 2024-02-23 12:09 | Oncology outpatient (recurring) (ONCR) | payer MEDICAID, SELFPAY ==
[2024-02-23 12:56] LABS: Basophils % 0.3 %; Eosinophils # 0.1 10^3/uL (0.0-0.8); Eosinophils % 1.7 %; Hematocrit 44.3 % (37-53); Lymphocytes # 2.1 10^3/uL (0.8-4.8); Lymphocytes % 31.9 %; Mean Corpuscular HGB Conc 35.4 g/dL (30-55); Mean Corpuscular Hemoglobin 30.3 pg (27-33); Mean Corpuscular Volume 85.4 fl (82-101); Mean Platelet Volume 10.5 fL (7.4-10.4); Monocytes # 0.4 10^3/uL (0.2-0.9); Monocytes % 5.8 %; Neutrophils # 3.96 10^3/uL (1.8-7.7); Nucleated Red Blood Cells % 0 %; Platelet Count 141 10^3/cmm (157-399); Red Blood Count 5.19 10^6/uL (3.85-5.65); Red Cell Distribution Width 11.9 % (12.1-15.1); White Blood Count 6.59 10^3/uL (3.29-11.43)
[2024-02-23 13:13] LABS: Alanine Aminotransferase 50 U/L (0-41); Albumin Level 4.5 g/dL (3.5-5.2); Alkaline Phosphatase 96 U/L (40-130); Anion Gap 13.4 (5-19); Aspartate Amino Transferase 28 U/L (0-40); Blood Urea Nitrogen 13 mg/dL (6-20); Calcium 9.1 mg/dL (8.5-10.5); Carbon Dioxide 26 mmol/L (22-29); Chloride 101 mmol/L (98-107); Creatinine Clr Calc Pharmacy 98.8754; Globulin 1.8 g/dL (1.3-4.6); Glomerular Filtration Rate 76.5 mL/min (90-130); Glucose 98 mg/dL (65-115); Lactate Dehydrogenase 226 U/L (135-225); Osmolality Calculated 282 mOsm/kg (285-295); Potassium 4.4 mmol/L (3.5-5.1); Sodium 136 mmol/L (136-145); Total Bilirubin 0.9 mg/dL (0.15-1.2); Total Protein 6.3 g/dL (6.6-8.7)
== END 2024-03-20 23:59 | disposition home or self-care (01) ==
PROVIDERS: Nurse Practitioner Family; PCP Internal Medicine Medical Oncology; Visit Provider Internal Medicine Medical Oncology
DX: C83.00 Small cell B-cell lymphoma, unspecified site (principal); G62.9 Polyneuropathy, unspecified; Z79.899 Other long term (current) drug therapy; Z53.9 Procedure and treatment not carried out, unspecified reason
CPT/HCPCS: 36415; 80053; 83615; 85025; 99214

== ENCOUNTER → 2024-04-02 10:15 | Outpatient (BNVA) | payer MEDICAID, SELFPAY | PROVIDERS: PCP Internal Medicine Medical Oncology; Visit Provider Podiatrist Foot & Ankle Surgery | DX: G62.9 Polyneuropathy, unspecified (principal); I87.2 Venous insufficiency (chronic) (peripheral); G62.0 Drug-induced polyneuropathy; T45.1X5A Adverse effect of antineoplastic and immunosuppressive drugs, initial encounter; M21.41 Flat foot [pes planus] (acquired), right foot; M21.42 Flat foot [pes planus] (acquired), left foot; C83.00 Small cell B-cell lymphoma, unspecified site; D47.2 Monoclonal gammopathy; D58.2 Other hemoglobinopathies | CPT/HCPCS: 99213 ==

== ENCOUNTER 2024-04-26 12:14 | Oncology outpatient (recurring) (ONCR) | payer MEDICAID, SELFPAY ==
[2024-04-26 12:43] LABS: Basophils % 0.3 %; Eosinophils # 0.1 10^3/uL (0.0-0.8); Eosinophils % 2.4 %; Hematocrit 42.7 % (37-53); Lymphocytes # 2.5 10^3/uL (0.8-4.8); Lymphocytes % 42.2 %; Mean Corpuscular HGB Conc 34.9 g/dL (30-55); Mean Corpuscular Hemoglobin 30.1 pg (27-33); Mean Corpuscular Volume 86.3 fl (82-101); Mean Platelet Volume 10.4 fL (7.4-10.4); Monocytes # 0.5 10^3/uL (0.2-0.9); Monocytes % 7.8 %; Neutrophils # 2.79 10^3/uL (1.8-7.7); Neutrophils % 47.1 %; Nucleated Red Blood Cells % 0 %; Platelet Count 144 10^3/cmm (157-399); Red Blood Count 4.95 10^6/uL (3.85-5.65); Red Cell Distribution Width 11.9 % (12.1-15.1); White Blood Count 5.92 10^3/uL (3.29-11.43)
[2024-04-26 12:59] LABS: Alanine Aminotransferase 40 U/L (0-41); Albumin Level 4.3 g/dL (3.5-5.2); Alkaline Phosphatase 87 U/L (40-130); Anion Gap 13.5 (5-19); Aspartate Amino Transferase 25 U/L (0-40); Blood Urea Nitrogen 11 mg/dL (6-20); Calcium 8.9 mg/dL (8.5-10.5); Carbon Dioxide 28 mmol/L (22-29); Chloride 101 mmol/L (98-107); Globulin 1.7 g/dL (1.3-4.6); Glomerular Filtration Rate 98.9 mL/min (90-130); Glucose 96 mg/dL (65-115); Lactate Dehydrogenase 201 U/L (135-225); Osmolality Calculated 285 mOsm/kg (285-295); Potassium 4.5 mmol/L (3.5-5.1); Sodium 138 mmol/L (136-145); Total Bilirubin 0.5 mg/dL (0.15-1.2)
== END 2024-05-18 23:59 | disposition home or self-care (01) ==
PROVIDERS: Nurse Practitioner Family; PCP Internal Medicine Medical Oncology; Visit Provider Internal Medicine Medical Oncology
DX: C83.04 Small cell B-cell lymphoma, lymph nodes of axilla and upper limb (principal); G62.9 Polyneuropathy, unspecified; Z79.899 Other long term (current) drug therapy; Z87.891 Personal history of nicotine dependence; Z92.25 Personal history of immunosuppression therapy
CPT/HCPCS: 36415; 80053; 83615; 85025; 99213

== ENCOUNTER 2024-07-26 09:09 | Oncology outpatient (recurring) (ONCR) | payer MEDICAID, SELFPAY ==
[2024-07-26 09:42] LABS: Reticulocyte % 2.6 % (0.5-2.0)
[2024-07-26 09:43] LABS: Basophils % 0.2 %; Eosinophils # 0.1 10^3/uL (0.0-0.8); Eosinophils % 2.3 %; Hematocrit 41.5 % (37-53); Lymphocytes # 2.1 10^3/uL (0.8-4.8); Lymphocytes % 39.1 %; Mean Corpuscular HGB Conc 34.5 g/dL (30-55); Mean Platelet Volume 10.4 fL (7.4-10.4); Monocytes # 0.4 10^3/uL (0.2-0.9); Monocytes % 7.4 %; Neutrophils # 2.65 10^3/uL (1.8-7.7); Neutrophils % 50.6 %; Nucleated Red Blood Cells % 0 %; Platelet Count 132 10^3/cmm (157-399); Red Blood Count 4.77 10^6/uL (3.85-5.65); White Blood Count 5.24 10^3/uL (3.29-11.43)
[2024-07-26 10:03] LABS: Alanine Aminotransferase 26 U/L (0-41); Alkaline Phosphatase 82 U/L (40-130); Aspartate Amino Transferase 19 U/L (0-40); Blood Urea Nitrogen 15 mg/dL (8-23); Calcium 8.8 mg/dL (8.5-10.5); Carbon Dioxide 25 mmol/L (22-29); Chloride 106 mmol/L (98-107); Globulin 1.5 g/dL (1.3-4.6); Glomerular Filtration Rate 98.6 mL/min (90-130); Glucose 118 mg/dL (65-115); Lactate Dehydrogenase 189 U/L (135-225); Magnesium 1.9 mg/dL (1.7-2.3); Osmolality Calculated 296 mOsm/kg (285-295); Sodium 142 mmol/L (136-145); Total Bilirubin 0.4 mg/dL (0.15-1.2); Total Protein 5.5 g/dL (6.6-8.7); Uric Acid 5.7 mg/dL (3.4-7.0)
== END 2024-08-18 23:59 | disposition home or self-care (01) ==
PROVIDERS: PCP Internal Medicine Medical Oncology; Visit Provider Internal Medicine
DX: C83.04 Small cell B-cell lymphoma, lymph nodes of axilla and upper limb (principal); G62.9 Polyneuropathy, unspecified; Z79.899 Other long term (current) drug therapy; Z87.891 Personal history of nicotine dependence; Z92.25 Personal history of immunosuppression therapy; D58.2 Other hemoglobinopathies
CPT/HCPCS: 36415; 80053; 83010; 83615; 83735; 84100; 84550; 85025; 85045; 99213

== ENCOUNTER 2024-09-07 13:32 | Emergency (ER) | payer MEDICAID, SELFPAY ==
--- NOTE | 2024-09-07 13:37 | US_ITS ---
WS: [id number] TESTICULAR ULTRASOUND HISTORY: pain/swelling COMPARISON: None available. TECHNIQUE: Real-time and color Doppler imaging utilized to perform a testicular ultrasound. Right testicle: 5.3 cm x 2.7 cm x 2.7 cm. Normal size and echogenicity. No mass or torsion. Increased vascularity throughout the RIGHT testicle. Large complex hydrocele surrounding the testicle. Septations and low-level echoes within the hydrocele. Right epididymis: Epididymis is difficult to visualize with a large effusion. Left testicle: 3.1 cm x 3.5 cm x 3.9 cm. Normal size and echogenicity. No mass or torsion. Normal color Doppler is present throughout. Systolic and diastolic velocities are both present. No significant hydrocele. Left epididymis: Normal epididymis with no increased vascularity. US/US scrotum [id number] IMPRESSION: 1. Acute RIGHT orchitis. 2. Large complex RIGHT hydrocele with septations and low-level echoes. Conside r inflammatory and infectious causes.
[2024-09-07 13:39] VITALS: BP 180/83; PULSE 56; RESP 16; TEMP 36.4; O2SAT 95
[2024-09-07 13:52] VITALS: BP 170/71; RESP 18; O2SAT 98
--- NOTE | 2024-09-07 13:53 | W.ED.MALEGU ---
HPI - Male Genitourinary General: Chief complaint: Urogenital-Male Stated complaint: testicular swelling Time Seen by Provider: 09/07/24 13:37 History of Present Illness: 59-year-old male with intermittent testicular pain and swelling is improved and has been going on for 3 weeks denies any dysuria urgency or frequency no hematuria. Was seen in clinic 1 week ago and started on ciprofloxacin. Remote history of vasectomy Associated symptoms: Deny dysuria Related Data Home Medications ?Medication ?Instructions ?Recorded ?Confirmed divalproex 500 mg tablet,delayed 1,000 mg PO DAILY 08/11/22 07/26/24 release (Depakote) aripiprazole 10 mg tablet 10 mg PO 1XD 11/24/23 07/26/24 bupropion HCl 150 mg 24 hr tablet, 150 mg PO 1XD 11/24/23 07/26/24 extended release Previous Rx's ?Medication ?Instructions ?Recorded polyethylene glycol 3350 17 17 g PO DAILY #119 grams 12/20/23 gram/dose oral powder (Miralax) orthopedic shoes with custom #1 ea 01/02/24 accomodative insoles sole supports #1 ea 04/02/24 zanubrutinib 80 mg capsule 160 mg (2 x 80 mg) PO DAILY #60 05/02/24 (Brukinsa) caps doxycycline hyclate 100 mg capsule 100 mg PO BID 10 days #20 caps 09/07/24 hydrocodone 5 mg-acetaminophen 325 1 tab PO Q6H PRN pain #15 tabs 09/07/24 mg tablet promethazine 25 mg tablet 25 mg PO Q6H PRN nausea and 09/07/24 vomiting #20 tabs Allergies Allergy/AdvReac Type Severity Reaction Status Date / Time ziprasidone (From [facility]) Allergy ADR/ALGY-Pa Verified 07/26/24 10:18 lpitations Review of Systems Const: Denies: fever(s) or chills Card: Denies: chest pain Resp: Denies: dyspnea GI: Denies: abdominal pain : Denies: dysuria, urinary frequency or urinary urgency Musc: Denies: neck pain or back pain Skin/Breast: Denies: rash PFSH ED PFSH: Medical History Marginal zone lymphoma Bipolar disorder Depression Surgical History Hx of umbilical hernia repair 12/20/23 Dr Armando History of lymph node biopsy (07/24/18) Left axillary lymph node biopsy History of bone marrow biopsy (05/04/18) History of bone marrow biopsy (08/24/17) History of vasectomy Family History Father Cancer Asbestosis Lung disease Mother Psychiatric illness Bipolar Suicide Denies family history of Diabetes CAD (coronary artery disease) Clotting disorder Dementia Hyperlipidemia Chronic kidney disease (CKD) Anesthesia complication Bleeding disorder Hypertension Stroke Social History Smoking and tobacco/nicotine status: former use of tobacco/nicotine Alcohol intake: never Physical Exam Const: COMMON NORMALS: no acute distress GENERAL APPEARANCE: cooperative and comfortable ORIENTATION/CONSCIOUSNESS: Yes awake, Yes oriented to person, Yes oriented to place and Yes oriented to time HENMT: COMMON NORMALS: normocephalic, atraumatic and hearing grossly normal bilaterally HEAD & SCALP: normocephalic and atraumatic Resp: COMMON NORMALS: normal respiratory effort, No retractions, No use of accessory muscles and clear to auscultation bilaterally AUSCULTATION: clear to auscultation bilaterally Cardio: COMMON NORMALS: regular rate, regular rhythm and No murmurs present (Cardio) RATE: regular rate RHYTHM: regular rhythm GI: COMMON NORMALS: Soft to palpation and No hepatosplenomegaly present AUSCULTATION: Yes normoactive bowel sounds PALPATION: Yes Soft to palpation, No Tenderness to palpation present (GI), No Guarding due to palpation present (GI) and Yes No hepatosplenomegaly present Extremity: COMMON NORMALS: normal to inspection, capillary refill normal, no clubbing, cyanosis or edema, no calf tenderness and no pedal edema Neuro: SENSORIUM/ORIENTATION: Yes oriented to person, Yes oriented to place and Yes oriented to time Skin: COMMON NORMALS: no rashes or lesions noted GENERAL SKIN EXAM: no rashes or lesions noted Course Vital Signs: Vital signs: Vital Signs Temperature 97.5 F L 09/07/24 13:39 Pulse Rate 81 09/07/24 16:25 Respiratory Rate 18 09/07/24 14:43 Blood Pressure 175/76 09/07/24 16:25 Pulse Oximetry 98 09/07/24 16:25 Oxygen Delivery Me thod Room Air 09/07/24 14:43 MDM - Male Medical Decision Making Acute orchitis with septations noted on this ultrasound. Patient is currently on Cipro I discussed with on-call urology from [facility] in [place]. They will see the patient on Tuesday morning. Discussed with the patient he preferred continued outpatient treatment with follow-up as an outpatient as opposed to transfer to [facility] urology was open to transfer but offered to treated either way and felt it was fine as long as the patient did not have a fever or elevated white count which she does not. Added doxycycline gave hydrocodone promethazine continue Cipro the urology clinic will contact the patient to make follow-up. Medical Records I reviewed the patient's medical records. Lab Data I reviewed the patient's lab results. 09/07/24 13:54 09/07/24 13:54 Radiology Impressions Scrotum Ultrasound 09/07/24 13:37 IMPRESSION: 1. Acute RIGHT orchitis. 2. Large complex RIGHT hydrocele with septations and low-level echoes. Consider inflammatory and infectious causes. Laboratory Results WBC 6.60 10^3/uL (3.29-11.43) 09/07/24 13:54 RBC 4.94 10^6/uL (3.85-5.65) 09/07/24 13:54 Hgb 14.90 g/dL (11.27-16.99) 09/07/24 13:54 Hct 42.6 % (37-53) 09/07/24 13:54 MCV 86.2 fl (82-101) 09/07/24 13:54 MCH 30.2 pg (27-33) 09/07/24 13:54 MCHC 35.0 g/dL (30-55) 09/07/24 13:54 RDW 12.3 % (12.1-15.1) 09/07/24 13:54 Plt Count 133 10^3/cmm (157-399) L 09/07/24 13:54 MPV 10.5 fL (7.4-10.4) H 09/07/24 13:54 Neut % (Auto) 60.1 % 09/07/24 13:54 Lymph % (Auto) 29.5 % 09/07/24 13:54 [place] % (Auto) 7.9 % 09/07/24 13:54 Eos % (Auto) 1.7 % 09/07/24 13:54 Baso % (Auto) 0.5 % 09/07/24 13:54 Neut # (Auto) 3.97 10^3/uL (1.8-7.7) 09/07/24 13:54 Lymph # (Auto) 2.0 10^3/uL (0.8-4.8) 09/07/24 13:54 [place] # (Auto) 0.5 10^3/uL (0.2-0.9) 09/07/24 13:54 Eos # (Auto) 0.1 10^3/uL (0.0-0.8) 09/07/24 13:54 Baso # (Auto) 0.0 10^3/uL (0.0-0.1) 09/07/24 13:54 Nucleated RBC % (auto) 0 % 09/07/24 13:54 Nucleated RBCs # 0.0 /100WBC 09/07/24 13:54 Sodium 139 mmol/L (136-145) 09/07/24 13:54 Potassium 4.0 mmol/L (3.5-5.1) 09/07/24 13:54 Chloride 103 mmol/L (98-107) 09/07/24 13:54 Carbon Dioxide 25 mmol/L (22-29) 09/07/24 13:54 Anion Gap 15.0 (5-19) 09/07/24 13:54 BUN 13 mg/dL (8-23) 09/07/24 13:54 Creatinine 1.0 mg/dL (0.7-1.2) 09/07/24 13:54 GFR Calculation 76.2 mL/min (90-130) L 09/07/24 13:54 Glucose 111 mg/dL (65-115) 09/07/24 13:54 Calculated Osmolality 289 mOsm/kg (285-295) 09/07/24 13:54 Lactic Acid 0.9 mmol/L (0.5-2.2) 09/07/24 15:15 Calcium 8.9 mg/dL (8.5-10.5) 09/07/24 13:54 Total Bilirubin 0.6 mg/dL (0.15-1.2) 09/07/24 13:54 AST 26 U/L (0-40) 09/07/24 13:54 ALT 37 U/L (0-41) 09/07/24 13:54 Alkaline Phosphatase 92 U/L (40-130) 09/07/24 13:54 Total Protein 6.2 g/dL (6.6-8.7) L 09/07/24 13:54 Albumin 4.1 g/dL (3.5-5.2) 09/07/24 13:54 Globulin 2.1 g/dL (1.3-4.6) 09/07/24 13:54 Urine Color Yellow (Yellow) 09/07/24 14:00 Urine Appearance Clear (CLEAR) 09/07/24 14:00 Urine pH 6.5 (5-7) 09/07/24 14:00 Ur Specific [place] 1.019 (1.005-1.030) 09/07/24 14:00 Urine Protein Negative (Negative) 09/07/24 14:00 Urine Glucose (UA) Negative (Normal) 09/07/24 14:00 Urine Ketones Trace (Negative) 09/07/24 14:00 Urine Blood Negative (Negative) 09/07/24 14:00 Urine Nitrate Negative (Negative) 09/07/24 14:00 Urine Bilirubin Negative (Negative) 09/07/24 14:00 Urine Urobilinogen 1.0 mg/dL (Negative) 09/07/24 14:00 Ur Leukocyte Esterase Negative (Negative) 09/07/24 14:00 Urine RBC 0-2 /hpf (0-2) 09/07/24 14:00 Urine WBC 0-5 /hpf (0-5) 09/07/24 14:00 Ur Squamous Epith Cells 0-5 /hpf (0-5) 09/07/24 14:00 Amorphous Sediment Not Reportable 09/07/24 14:00 Urine Bacteria None seen /hpf (NONE) 09/07/24 14:00 Hyaline Casts 0-4 /lpf H 09/07/24 14:00 All radiology interpretation(s) finalized by discharge Discharge Plan Discharge Patient Disposition: Home Clinical Impression: Acute orchitis Condition: Stable Prescriptions: New doxycycline hyclate 100 mg capsule 100 mg PO BID 10 Days Qty: 20 0RF hydrocodone-acetaminophen 5-325 mg tablet 1 tab PO Q6H PRN (Reason: pain) Qty: 15 0RF promethazine 25 mg tablet 25 mg PO Q6H PRN (Reason: nausea and vomiting) Qty: 20 0RF No Action divalproex [Depakote] 500 mg tablet,delayed release (DR/EC) 1,000 mg PO DAILY bupropion HCl 150 mg tablet extended release 24 hr 150 mg PO 1XD aripiprazole 10 mg tablet 10 mg PO 1XD (DME) sole supports See Rx Instructions .Route .MEDSUPPLY Qty: 1 0RF Rx Instructions: As directed (DME) orthopedic shoes with custom accomodative insoles See Rx Instructions .Route .MEDSUPPLY Qty: 1 0RF Rx Instructions: As directed Brukinsa 80 mg capsule 160 mg PO DAILY Qty: 60 4RF polyethylene glycol 3350 [Miralax] 17 gram/dose powder 17 g PO DAILY Qty: 119 0RF Discharge Orders: Discharge ED (Routine); Ordered 09/07/24 Ordered By: Florentino Contreras Discharge Diet: Usual diet Discharge Activity: Limit activity as instructed Patient Instructions: Opioid Safety, Pain Management Activity Restrictions/Additional Instructions: Thank you for choosing [facility] for your healthcare needs today. It is very important that you follow up as instructed or that you return to the Emergency Department should you have concerns or if your condition changes or worsens in any way. You were seen in the emergency room with right testicular pain. On the ultrasound it looks like there is an acute infection of the testicle called orchitis. Continue the ciprofloxacin you are given early add doxycycline 100 mg twice daily. You are also given pain and nausea medications to use as needed. [place] u[place] group [place] will contact you regarding an appointment to follow-up in their clinic. Print Language: Cameroonian Coding Level of Care Code ED Foreign Exchange Student Coordinator for José Miguel Gordillo
[2024-09-07 14:06] LABS: Basophils % 0.5 %; Eosinophils # 0.1 10^3/uL (0.0-0.8); Eosinophils % 1.7 %; Hematocrit 42.6 % (37-53); Lymphocytes % 29.5 %; Mean Corpuscular Hemoglobin 30.2 pg (27-33); Mean Corpuscular Volume 86.2 fl (82-101); Mean Platelet Volume 10.5 fL (7.4-10.4); Monocytes # 0.5 10^3/uL (0.2-0.9); Monocytes % 7.9 %; Neutrophils # 3.97 10^3/uL (1.8-7.7); Neutrophils % 60.1 %; Nucleated Red Blood Cells % 0 %; Platelet Count 133 10^3/cmm (157-399); Red Blood Count 4.94 10^6/uL (3.85-5.65); Red Cell Distribution Width 12.3 % (12.1-15.1)
[2024-09-07 14:13] LABS: Bilirubin Urine Negative (Negative); Blood Urine Negative (Negative); Glucose Urine UA Negative (Normal); Ketones Urine Trace (Negative); Leukocyte Esterase Urine Negative (Negative); Nitrate Urine Negative (Negative); Protein Urine Negative (Negative); Specific Gravity, Urine 1.019 (1.005-1.030); Urine Appearance Clear (CLEAR); Urine Color Yellow (Yellow); pH Urine 6.5 (5-7)
[2024-09-07 14:16] LABS: Add Urine Microscopic? YES; Bacteria Urine None Seen /hpf; Hyaline Casts Urine 0-4 /lpf; RBC Urine 0-2 /hpf (0-2); Squamous Epithelial Cell Urine 0-5 /hpf (0-5); WBC Urine 0-5 /hpf (0-5)
[2024-09-07 14:23] LABS: Add Urine Culture? No
[2024-09-07 14:25] LABS: Alanine Aminotransferase 37 U/L (0-41); Albumin Level 4.1 g/dL (3.5-5.2); Alkaline Phosphatase 92 U/L (40-130); Aspartate Amino Transferase 26 U/L (0-40); Blood Urea Nitrogen 13 mg/dL (8-23); Calcium 8.9 mg/dL (8.5-10.5); Carbon Dioxide 25 mmol/L (22-29); Chloride 103 mmol/L (98-107); Creatinine Clr Calc Pharmacy 99.0658; Globulin 2.1 g/dL (1.3-4.6); Glomerular Filtration Rate 76.2 mL/min (90-130); Glucose 111 mg/dL (65-115); Osmolality Calculated 289 mOsm/kg (285-295); Sodium 139 mmol/L (136-145); Total Bilirubin 0.6 mg/dL (0.15-1.2); Total Protein 6.2 g/dL (6.6-8.7)
[2024-09-07 14:43] VITALS: BP 136/86; RESP 18; O2SAT 98
[2024-09-07] MEDS: piperacillin-tazobactam 3.375 GM in sodium chloride 0.9% (plus) 50 ML IV (15:39)
[2024-09-07 15:46] LABS: Lactic Sepsis W/Reflex 0.9 mmol/L (0.5-2.2)
[2024-09-07 16:25] VITALS: BP 175/76; PULSE 81; O2SAT 98
== END 2024-09-07 16:28 | disposition home or self-care (01) ==
PROVIDERS: Emergency Provider Family Medicine
DX: N45.2 Orchitis (principal); Z87.891 Personal history of nicotine dependence
CPT/HCPCS: 36415; 76870; 80053; 81001; 83605; 85025; 87040; 96365; 99284; J2543

== ENCOUNTER 2024-09-10 18:40 | Emergency (ER) | payer MEDICAID, SELFPAY ==
[2024-09-10 18:45] VITALS: BP 182/90; PULSE 58; RESP 17; TEMP 36.7; O2SAT 97; BMI 35.9
--- NOTE | 2024-09-10 19:41 | ED_ITS ---
Documented by User: ROSARIO Winn 09/11/24 00:58 HPI - Male Genitourinary 2 General: Chief complaint: Urogenital-Male Stated complaint: Evaluate if he needs Surgery Time Seen by Provider: 09/10/24 19:15 History of Present Illness: 59-year-old male diagnosed with orchitis of the right side with septation on Tuesday, 09/07, presents back to the ED with worsening pain despite ibuprofen without call from urology. Patient states he has continued and ongoing however now worsening pain. No fevers. He is not having urinary dysfunction or dysuria. Remote history of vasectomy in the past. No trauma. Ultrasound reviewed from Tuesday Patient does not take opioids and will not take opioids. He has never taken opioids in his life, and is too scared of addiction. He is aware that he may have to have surgery in the future, and at that time he would utilize a short- term amount of opioids and is not opposed. He does not want opioids on this visit however. Associated symptoms: Reports nausea; Deny vomiting Related Data Home Medications ?Medication ?Instructions ?Recorded ?Confirmed divalproex 500 mg tablet,delayed 1,000 mg PO DAILY 07/26/24 release (Depakote) aripiprazole 10 mg tablet 10 mg PO 1XD 11/24/23 bupropion HCl 150 mg 24 hr tablet, 150 mg PO 1XD 11/2307/26/24 extended release Previous Rx's ?Medication ?Instructions ?Recorded polyethylene glycol 3350 17 17 g PO DAILY #119 grams 1 gram/dose oral powder (Miralax) orthopedic shoes with custom #1 ea 01/02/24 accomodative insoles sole supports #1 ea 04/02/24 zanubrutinib 80 mg capsule 160 mg (2 x 80 mg) PO DAILY #60 05/02/24 (Brukinsa) caps doxycycline hyclate 100 mg capsule 100 mg PO BID 10 da ys #20 caps 09/07/24 hydrocodone 5 mg-acetaminophen 325 1 tab PO Q6H PRN pa in #15 tabs 09/07/24 mg tablet promethazine 25 mg tablet 25 mg PO Q6H PRN nausea and 09/07/24 vomiting #20 tabs Allergies Allergy/AdvReac Type Severity Reaction Status Date / Time ziprasidone (From [facility]) Allergy ADR/ALGY-Pa Verified 09/10/24 18:52 lpitations Review of Systems 2 General: Reports: 10 or more systems reviewed and unremarkable except in HPI and below Const: Denies: fever(s) or chills Eyes: Denies: change in vision ENMT: Denies: throat pain Card: Denies: chest pain or palpitations Resp: Denies: dyspnea or productive cough GI: Reports: abdominal pain and nausea; Denies: vomiting : Reports: testicular pain, testicular mass and scrotal swelling; Denies: flank pain, difficulty urinating or genital lesions Musc: Denies: neck pain or back pain Skin/Breast: Reports: rash, pruritus and erythema Neuro: Denies: headache(s) or numbness in extremities Psych: Denies: anxiety or depression Teto/Lymph: Denies: easy bruising or easy bleeding PFSH ED 2 PFSH: Medical History Marginal zone lymphoma Bipolar disorder Depression Surgical History Hx of umbilical hernia repair 12/20/23 Dr Armando History of lymph node biopsy (07/24/18) Left axillary lymph node biopsy History of bone marrow biopsy (05/04/18) History of bone marrow biopsy (08/24/17) History of vasectomy Family History Father Cancer Asbestosis Lung disease Mother Psychiatric illness Bipolar Suicide Denies family history of Diabetes CAD (coronary artery disease) Clotting disorder Dementia Hyperlipidemia Chronic kidney disease (CKD) Anesthesia complication Bleeding disorder Hypertension Stroke Social History Smoking and tobacco/nicotine status: former use of tobacco/nicotine Alcohol intake: never Physical Exam 2 Const: COMMON NORMALS: no acute distress, average body habitus, patient oriented x3 and no limitations HENMT: COMMON NORMALS: normocephalic and atraumatic HEAD & SCALP: n ormocephalic and atraumatic Eye: COMMON NORMALS: Equal, round and reactive pupils present and EOMs intact bilaterally PUPIL: Yes Equal, round and reactive pupils present Neck/C-Spine: COMMON NORMALS: full ROM and no lymphadenopathy Lymph: LYMPHATIC: lymphadenopathy (right inguinal) Chest: COMMONS NORMALS: normal inspection of the chest and normal palpation of entire chest wall Resp: COMMON NORMALS: normal respiratory effort and clear to auscultation bilaterally AUSCULTATION: clear to auscultation bilaterally Cardio: COMMON NORMALS: regular rate and regular rhythm RATE: regular rate RHYTHM: regular rhythm GI: COMMON NORMALS: Normal to inspection, nondistended, normoactive bowel sounds present, Soft to palpation and non-tender PALPATION: Yes Soft to palpation : COMMON NORMALS: Yes no CVA tenderness BLADDER/KIDNEY EXAM: Yes no CVA tenderness PENIS: normal penis and circumcised MEATUS: meatus normal S CROTUM: Yes testes descended bilaterally, Yes Scrotal tenderness present, Yes edematous Scrotal edema laterality: right and Yes scrotal mass Scrotal mass laterality: right erythematous (superior portion), fixed, fluctuant, firm, tender (superior portion), warm (superior portion) and cystic (inferior portion) GENITAL IMAGES (MALE): 1. red, warm, firm, cannot discern spermatic cord 2. large hydrocele Back/Pelvis: COMMON NORMALS: no CVA tenderness Extremity: COMMON NORMALS: normal to inspection and full ROM Neuro: COMMON NORMALS: patient oriented x3 Course 2 Consultations: Consultation #1: 2100: [facility]. Discuss ed with Dr. Heller. He would consult if needed, however would not do inpatient surgery. Patient needs admitted for acute orchitis given his failure of outpatient antibiotics x 2. No beds at [facility] at this time. Consultation #2: Called [facility]. No beds at their facility either. [facility] noted we could call back at 10:45 AM to know the status of transfer. There are 8 patients waiting for beds in their ER. Vital Signs: Vital signs: Vital Signs Temperature 98.1 F 09/10/24 18:45 Pulse Rate 43 L 09/11/24 01:09 Respiratory Rate 17 09/11/24 01:09 Blood Pressure 141/83 09/10/24 21:04 Pulse Oximetry 95 09/11/24 01:09 Oxygen Delivery Me thod Room Air 09/11/24 01:09 MDM - Male Medical Decision Making Patient is a 59-year-old gentleman with acute orchitis, refractory to outpatient treatment with association of hydrocele. Discussed with Dr. Heller from urology at [facility], that would recommend inpatient IV antibiotics and urology coverage. We do not have urology coverage here, and therefore patient would need to be transferred for consultation. Continue with IV antibiotics in the interim. Will discuss with hospitalist if they will accept at [facility] for the waiting list, and the hospitalist here for observation. Lab Data I reviewed the patient's lab results. 09/10/24 20:26 09/10/24 20:26 Radiology Impressions Scrotum Ultrasound 09/10/24 19:47 IMPRESSION: 1. Slightly hyperemic right testicle consistent with known orchitis. 2. No evidence of torsion. 3. Complex prominent right hydrocele with septations. Laboratory Results WBC 4.99 10^3/uL (3.29-11.43) 09/10/24 20: RBC 4.79 10^6/uL (3.85-5.65) 09/10/24 20: Hgb 14.50 g/dL (11.27-16.99) 09/10/24 20: Hct 42.1 % (37-53) 09/10/24 20: MCV 87.9 fl (82-101) 09/10/24 20: MCH 30.3 pg (27-33) 09/10/24 20: MCHC 34.4 g/dL (30-55) 09/10/24 20: RDW 12.4 % (12.1-15.1) 09/10/24 20: Plt Count 123 10^3/cmm (157-399) L 09/10/24 20: MPV 10.5 fL (7.4-10.4) H 09/10/24 20: Neut % (Auto) 59.5 % 09/10/24 20: Lymph % (Auto) 29.9 % 09/10/24: [place] % (Auto) 8.2 % 09/10/24: Eos % (Auto) 1.6 % 09/10/24 20: Baso % (Auto) 0.4 % 09/10/24 20: Neut # (Auto) 2.97 10^3/uL (1.8-7.7) 09/10/24: Lymph # (Auto) 1.5 10^3/uL (0.8-4.8) 09/10/24 20: [place] # (Auto) 0.4 10^3/uL (0.2-0.9) 09/10/24 20: Eos # (Auto) 0.1 10^3/uL (0.0-0.8) 09/10/24 20: Baso # (Auto) 0.0 10^3/uL (0.0-0.1) 09/10/24 20: Nucleated RBC % (auto) 0 % 09/10/24 20: Nucleated RBCs # 0.0 /100WBC 09/10/24 20: Sodium 142 mmol/L (136-145) 09/10/24 20: Potassium 4.3 mmol/L (3.5-5.1) 09/10/24 20: Chloride 106 mmol/L (98-107) 09/10/24: Carbon Dioxide 25 mmol/L (22-29) 09/10/24: Anion Gap 15.3 (5-19) 09/10/24 20: BUN 16 mg/dL (8-23) 09/10/24 20: Creatinine 1.0 mg/dL (0.7-1.2) 09/10/24 20: GFR Calculation 76.2 mL/min (90-130) L 09/10/24 20: Glucose 97 mg/dL (65-115) 09/10/24 20: Calculated Osmolality 295 mOsm/kg (285-295) 09/10/24: Calcium 9.2 mg/dL (8.5-10.5) 09/10/24 20: Total Bilirubin 0.7 mg/dL (0.15-1.2) 09/10/24 20: AST 21 U/L (0-40) 09/10/24 20: ALT 32 U/L (0-41) 09/10/24 20: Alkaline Phosphatase 84 U/L (40-130) 09/10/24 20: Total Protein 6.0 g/dL (6.6-8.7) L 09/10/24: Albumin 4.1 g/dL (3.5-5.2) 06/23/25 20:26 Globulin 1.9 g/dL (1.3-4.6) 09/10/24 20:26 Urine Color Dark yellow (Yellow) A 09/10/24 20:17 Urine Appearance Clear (CLEAR) 09/10/24 20:17 Urine pH 5.5 (5-7) 09/10/24 20:17 Ur Specific [place] 1.024 (1.005-1.030) 09/10/24 20:17 Urine Protein Negative (Negative) 09/10/24 20:17 Urine Glucose (UA) Negative (Normal) 09/10/24 20:17 Urine Ketones Trace (Negative) 09/10/24 20:17 Urine Blood Negative (Negative) 09/10/24 20:17 Urine Nitrate Negative (Negative) 09/10/24 20:17 Urine Bilirubin Negative (Negative) 09/10/24 20:17 Urine Urobilinogen 1.0 mg/dL (Negative) 09/10/24 20:17 Ur Leukocyte Esterase Negative (Negative) 09/10/24 20:17 Urine RBC 0-2 /hpf (0-2) 09/10/24 20:17 Urine WBC 0-5 /hpf (0-5) 09/10/24 20:17 Ur Squamous Epith Cells 0-5 /hpf (0-5) 09/10/24 20:17 Amorphous Sediment Not Reportable 09/10/24 20:17 Urine Bacteria None seen /hpf (NONE) 09/10/24 20:17 Hyaline Casts 0.81 /lpf 09/10/24 20:17 All radiology interpretation(s) finalized by discharge ED provider radiology interpretation(s): Acute orchitis, hydrocele, right Discharge Plan Discharge Patient Disposition: Xfer Short-Term Hosp Clinical Impression: Acute orchitis Condition: Stable Referrals: Florentino Contreras DO [Primary Care Provider, Emergency Medicine] Discharge Diet: Usual diet Discharge Activity: Limit activity as instructed Print Language: [place] Coding 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[employer] Documented by User: Riaz Bui MD 09/11/24 01:41 HPI - Male Genitourinary 2 General: Chief complaint: Urogenital-Male Stated complaint: Evaluate if he needs Surgery Time Seen by Provider: 09/10/24 19:15 Related Data Home Medications ?Medication ?Instructions ?Recorded ?Confirmed divalproex 500 mg tablet,delayed 1,000 mg PO DAILY 07/26/24 release (Depakote) aripiprazole 10 mg tablet 10 mg PO 1XD 11/24/23 bupropion HCl 150 mg 24 hr tablet, 150 mg PO 1XD 11/2307/26/24 extended release Previous Rx's ?Medication ?Instructions ?Recorded polyethylene glycol 3350 17 17 g PO DAILY #119 grams 1 gram/dose oral powder (Miralax) orthopedic shoes with custom #1 ea 01/02/24 accomodative insoles sole supports #1 ea 04/02/24 zanubrutinib 80 mg capsule 160 mg (2 x 80 mg) PO DAILY #60 05/02/24 (Brukinsa) caps doxycycline hyclate 100 mg capsule 100 mg PO BID 10 da ys #20 caps 09/07/24 hydrocodone 5 mg-acetaminophen 325 1 tab PO Q6H PRN pa in #15 tabs 09/07/24 mg tablet promethazine 25 mg tablet 25 mg PO Q6H PRN nausea and 09/07/24 vomiting #20 tabs Allergies Allergy/AdvReac Type Severity Reaction Status Date / Time ziprasidone (From [facility]) Allergy ADR/ALGY-Pa Verified 09/10/24 18:52 lpitations PFSH ED 2 PFSH: Medical History Marginal zone lymphoma Bipolar disorder Depression Surgical History Hx of umbilical hernia repair 12/20/23 Dr Armando History of lymph node biopsy (07/24/18) Left axillary lymph node biopsy History of bone marrow biopsy (05/04/18) History of bone marrow biopsy (08/24/17) History of vasectomy Family History Father Cancer Asbestosis Lung disease Mother Psychiatric illness Bipolar Suicide Denies family history of Diabetes CAD (coronary artery disease) Clotting disorder Dementia Hyperlipidemia Chronic kidney disease (CKD) Anesthesia complication Bleeding disorder Hypertension Stroke Social History Smoking and tobacco/nicotine status: former use of tobacco/nicotine Alcohol intake: never Physical Exam 2 : GENITAL IMAGES (MALE): 1. red, warm, firm, cannot discern spermatic cord 2. large hydrocele Course 2 Vital Signs: Vital signs: Vital Signs Temperature 98.1 F 09/10/24 18:45 Pulse Rate 43 L 09/11/24 01:09 Respiratory Rate 17 09/11/24 01:09 Blood Pressure 141/83 09/10/24 21:04 Pulse Oximetry 95 09/11/24 01:09 Oxygen Delivery Me thod Room Air 09/11/24 01:09 MDM - Male Medical Decision Making Patient is a 59-year-old gentleman with acute orchitis, refractory to outpatient treatment with association of hydrocele. Discussed with Dr. Heller from urology at [facility], that would recommend inpatient IV antibiotics and urology coverage. We do not have urology coverage here, and therefore patient would need to be transferred for consultation. Continue with IV antibiotics in the interim. Will discuss with hospitalist if they will accept at [facility] for the waiting list, and the hospitalist here for observation. I spoke with Dr. Pressley at [facility] who has accepted the patient as inpatient med/tele. [facility] will call us with a bed and expects to have a bed later this morning/early afternoon after some discharges. Will continue IV Zosyn until then. Lab Data 09/10/24 20:26 09/10/24 20:26 Radiology Impressions Scrotum Ultrasound 09/10/24 19:47 IMPRESSION: 1. Slightly hyperemic right testicle consistent with known orchitis. 2. No evidence of torsion. 3. Complex prominent right hydrocele with septations. Laboratory Results WBC 4.99 10^3/uL (3.29-11.43) 09/10/24 20:26 RBC 4.79 10^6/uL (3.85-5.65) 09/10/24 20:26 Hgb 14.50 g/dL (11.27-16.99) 09/10/24 20: Hct 42.1 % (37-53) 09/10/24 20: MCV 87.9 fl (82-101) 09/10/24 20: MCH 30.3 pg (27-33) 09/10/24 20: MCHC 34.4 g/dL (30-55) 09/10/24 20: RDW 12.4 % (12.1-15.1) 09/10/24: Plt Count 123 10^3/cmm (157-399) L 09/10/24 20: MPV 10.5 fL (7.4-10.4) H 09/10/24 20: Neut % (Auto) 59.5 % 09/10/24: Lymph % (Auto) 29.9 % 09/10/24: [place] % (Auto) 8.2 % 09/10/24: Eos % (Auto) 1.6 % 09/10/24: Baso % (Auto) 0.4 % 09/10/24: Neut # (Auto) 2.97 10^3/uL (1.8-7.7) 09/10/24: Lymph # (Auto) 1.5 10^3/uL (0.8-4.8) 09/10/24: [place] # (Auto) 0.4 10^3/uL (0.2-0.9) 09/10/24: Eos # (Auto) 0.1 10^3/uL (0.0-0.8) 09/10/24: Baso # (Auto) 0.0 10^3/uL (0.0-0.1) 09/10/24: Nucleated RBC % (auto) 0 % 09/10/24: Nucleated RBCs # 0.0 /100WBC 09/10/24 20: Sodium 142 mmol/L (136-145) 09/10/24 20: Potassium 4.3 mmol/L (3.5-5.1) 09/10/24 20: Chloride 106 mmol/L (98-107) 09/10/24 20: Carbon Dioxide 25 mmol/L (22-29) 09/10/24 20: Anion Gap 15.3 (5-19) 09/10/24 20: BUN 16 mg/dL (8-23) 09/10/24 20: Creatinine 1.0 mg/dL (0.7-1.2) 09/10/24 20: GFR Calculation 76.2 mL/min (90-130) L 09/10/24 20: Glucose 97 mg/dL (65-115) 09/10/24 20: Calculated Osmolality 295 mOsm/kg (285-295) 09/10/24 20: Calcium 9.2 mg/dL (8.5-10.5) 09/10/24 20: Total Bilirubin 0.7 mg/dL (0.15-1.2) 09/10/24 20: AST 21 U/L (0-40) 09/10/24 20: ALT 32 U/L (0-41) 09/10/24 20: Alkaline Phosphatase 84 U/L (40-130) 09/10/24 20: Total Protein 6.0 g/dL (6.6-8.7) L 09/10/24 20: Albumin 4.1 g/dL (3.5-5.2) 09/10/24 20: Globulin 1.9 g/dL (1.3-4.6) 09/10/24 20: Urine Color Dark yellow (Yellow) A 09/10/24 20:17 Urine Appearance Clear (CLEAR) 09/10/24 20: Urine pH 5.5 (5-7) 09/10/24 20:17 Ur Specific [place] 1.024 (1.005-1.030) 09/10/24 20:17 Urine Protein Negative (Negative) 09/10/24 20:17 Urine Glucose (UA) Negative (Normal) 09/10/24 20:17 Urine Ketones Trace (Negative) 09/10/24 20: Urine Blood Negative (Negative) 09/10/24 20: Urine Nitrate Negative (Negative) 09/10/24 20:17 Urine Bilirubin Negative (Negative) 09/10/24 20:17 Urine Urobilinogen 1.0 mg/dL (Negative) 09/10/24 20:17 Ur Leukocyte Esterase Negative (Negative) 09/10/24 20:17 Urine RBC 0-2 /hpf (0-2) 09/10/24 20:17 Urine WBC 0-5 /hpf (0-5) 09/10/24 20:17 Ur Squamous Epith Cells 0-5 /hpf (0-5) 09/10/24 20:17 Amorphous Sediment Not Reportable 09/10/24 20:17 Urine Bacteria None seen /hpf (NONE) 09/10/24 20:17 Hyaline Casts 0.81 /lpf 09/10/24 20:17 Discharge Plan Discharge Patient Disposition: Xfer Short-Term Hosp Clinical Impression: Acute orchitis Condition: Stable Referrals: Florentino Contreras DO [Primary Care Provider, Emergency Medicine] Discharge Diet: Usual diet Discharge Activity: Limit activity as instructed Print Language: [place] Coding 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
--- NOTE | 2024-09-10 19:47 | USR_ITS ---
PROCEDURE INFORMATION: Exam: US Scrotum Exam date and time: 09/10/2024 9:02 PM Age: 59 years old Clinical indication: Scrotum pain; Patient was seen this er 09/07/2024 and had scrotal ultrasound with the same findings seen today. No change. The only treatment has been prescribed antibioltics; Additional info: Worsening pain TECHNIQUE: Imaging protocol: Real-time ultrasound of the scrotum and contents with color Doppler and image documentation. COMPARISON: US scrotum [id number] 09/07/2024 2:39 PM FINDINGS: Right testicle: 5.3 x 2.3 x 2.7 cm. No mass. No torsion. Slightly decreased diastolic flow but normal systolic flow. Overall, slightly hyperemic consistent with patient's known orchitis. Left testicle: 4.6 x 2.4 x 3.5 cm. No mass. Normal color Doppler and arterial waveforms. No torsion. Epididymides: No evidence of epididymitis. Scrotum/soft tissues: Complex hydrocele on the right measuring 5.6 x 3.8 x 5.6 cm with septations. US/US scrotum [id number] IMPRESSION: 1. Slightly hyperemic right testicle consistent with known orchitis. 2. No evidence of torsion. 3. Complex prominent right hydrocele with septations.
[2024-09-10 20:26] LABS: Bilirubin Urine Negative (Negative); Blood Urine Negative (Negative); Glucose Urine UA Negative (Normal); Ketones Urine Trace (Negative); Leukocyte Esterase Urine Negative (Negative); Nitrate Urine Negative (Negative); Protein Urine Negative (Negative); Specific Gravity, Urine 1.024 (1.005-1.030); Urine Appearance Clear (CLEAR); pH Urine 5.5 (5-7)
[2024-09-10 20:31] LABS: Add Urine Microscopic? YES; Bacteria Urine None Seen /hpf; Hyaline Casts Urine 0.81 /lpf; RBC Urine 0-2 /hpf (0-2); Squamous Epithelial Cell Urine 0-5 /hpf (0-5); WBC Urine 0-5 /hpf (0-5)
[2024-09-10 20:34] LABS: Basophils % 0.4 %; Eosinophils # 0.1 10^3/uL (0.0-0.8); Eosinophils % 1.6 %; Hematocrit 42.1 % (37-53); Lymphocytes # 1.5 10^3/uL (0.8-4.8); Lymphocytes % 29.9 %; Mean Corpuscular HGB Conc 34.4 g/dL (30-55); Mean Corpuscular Hemoglobin 30.3 pg (27-33); Mean Corpuscular Volume 87.9 fl (82-101); Mean Platelet Volume 10.5 fL (7.4-10.4); Monocytes # 0.4 10^3/uL (0.2-0.9); Monocytes % 8.2 %; Neutrophils # 2.97 10^3/uL (1.8-7.7); Neutrophils % 59.5 %; Nucleated Red Blood Cells % 0 %; Platelet Count 123 10^3/cmm (157-399); Red Blood Count 4.79 10^6/uL (3.85-5.65); Red Cell Distribution Width 12.4 % (12.1-15.1); White Blood Count 4.99 10^3/uL (3.29-11.43)
[2024-09-10 20:45] LABS: Urine Color Dark Yellow (Yellow)
[2024-09-10] MEDS: piperacillin-tazobactam 3.375 GM in sodium chloride 0.9% (plus) 50 ML IV (20:48)
[2024-09-10 20:54] LABS: Alanine Aminotransferase 32 U/L (0-41); Albumin Level 4.1 g/dL (3.5-5.2); Alkaline Phosphatase 84 U/L (40-130); Anion Gap 15.3 (5-19); Aspartate Amino Transferase 21 U/L (0-40); Blood Urea Nitrogen 16 mg/dL (8-23); Calcium 9.2 mg/dL (8.5-10.5); Carbon Dioxide 25 mmol/L (22-29); Chloride 106 mmol/L (98-107); Creatinine Clr Calc Pharmacy 99.0658; Globulin 1.9 g/dL (1.3-4.6); Glomerular Filtration Rate 76.2 mL/min (90-130); Glucose 97 mg/dL (65-115); Osmolality Calculated 295 mOsm/kg (285-295); Potassium 4.3 mmol/L (3.5-5.1); Sodium 142 mmol/L (136-145); Total Bilirubin 0.7 mg/dL (0.15-1.2)
[2024-09-10 21:04] VITALS: BP 141/83; O2SAT 99
[2024-09-10] MEDS: sodium chloride 0.9% 1,000 ML 999 ML IV (21:25)
[2024-09-10] MEDS: ibuprofen 200 mg Tablet 400 MG PO (22:30)
[2024-09-10 23:12] VITALS: O2SAT 97
[2024-09-11] VITALS (11 sets, daily range): BP systolic 105–174; BP diastolic 60–92; PULSE 41–64; RESP 17; O2SAT 94–99
[2024-09-11] MEDS: vancomycin 1,500 MG/300 ML PIGGYBACK 200 MG IV ×2 (01:08→18:41)
[2024-09-11] MEDS: piperacillin-tazobactam 3.375 GM in sodium chloride 0.9% (plus) 50 ML IV ×3 (04:20→20:52)
--- NOTE | 2024-09-11 04:28 | PC.NURSE ---
Per Dr Bui pt was allowed to take his home night time medications. Burkinsa 80mg, Depakote 500mg. Bupropion 150mg XR.
--- NOTE | 2024-09-11 09:15 | PC.PHAR ---
Patient was sleeping when I went in . Patient stated his bottles of everything he was taking was with him .
--- NOTE | 2024-09-11 11:15 | PC.NURSE ---
this nurse took over pt care from Betty KIM at 1115.
[2024-09-11] MEDS: ibuprofen 200 mg Tablet 400 MG PO (18:53)
--- NOTE | 2024-09-11 18:57 | PC.NURSE ---
pt requesting ibu, states his pain is 2.5. Pt does not want any controlled pain killers, Jerri notified and order placed.
--- NOTE | 2024-09-11 20:02 | PC.NURSE ---
pt report called to Jessica Mena RN at [phone].
== END 2024-09-11 21:33 | disposition short-term general hospital (02) ==
PROVIDERS: Emergency Provider Physician Assistant; PCP Family Medicine
DX: N45.2 Orchitis (principal); Z87.891 Personal history of nicotine dependence
CPT/HCPCS: 36415; 76870; 80053; 81001; 85025; 96365; 96366; 96367; 99285; J2543; J3370; J7030; J9999

== ENCOUNTER 2024-09-27 10:00 | Oncology outpatient (recurring) (ONCR) | payer MEDICAID, SELFPAY ==
[2024-09-19] MEDS: ertapenem 1,000 mg SDV 1000 MG IVP (10:08)
[2024-09-19 10:10] VITALS: BP 140/76; PULSE 74; RESP 17; TEMP 36.8; O2SAT 96
[2024-09-19 10:21] VITALS: BP 118/63; PULSE 50; RESP 18; TEMP 37; O2SAT 92
[2024-09-20] MEDS: ertapenem 1,000 mg SDV 1000 MG IVP (10:17)
[2024-09-20 10:35] LABS: Hematocrit 35.7 % (37-53); Hemoglobin 12.30 g/dL (11.27-16.99); Mean Corpuscular HGB Conc 34.5 g/dL (30-55); Mean Corpuscular Hemoglobin 30.0 pg (27-33); Mean Corpuscular Volume 87.1 fl (82-101); Nucleated Red Blood Cells % 0 %; Platelet Count 123 10^3/cmm (157-399); Red Blood Count 4.10 10^6/uL (3.85-5.65); White Blood Count 4.25 10^3/uL (3.29-11.43)
[2024-09-20 10:51] LABS: Alanine Aminotransferase 45 U/L (0-41); Albumin Level 3.7 g/dL (3.5-5.2); Alkaline Phosphatase 78 U/L (40-130); Anion Gap 14.7 (5-19); Aspartate Amino Transferase 25 U/L (0-40); Blood Urea Nitrogen 12 mg/dL (8-23); Calcium 8.1 mg/dL (8.5-10.5); Carbon Dioxide 23 mmol/L (22-29); Chloride 109 mmol/L (98-107); Globulin 1.9 g/dL (1.3-4.6); Glucose 107 mg/dL (65-115); Osmolality Calculated 296 mOsm/kg (285-295); Potassium 3.7 mmol/L (3.5-5.1); Sodium 143 mmol/L (136-145); Total Protein 5.6 g/dL (6.6-8.7)
[2024-09-20 10:53] VITALS: BP 168/94; PULSE 68; RESP 16; TEMP 36.9; O2SAT 96
--- NOTE | 2024-09-20 10:55 | PC.NURSE ---
During pre administration assessment, patient states he is feeling short of breath with increased fatigue. Labs were drawn and sent to ordering physician. Vital signs stable, lungs clear to auscultation.
[2024-09-21 10:30] VITALS: BP 143/79; PULSE 50; RESP 18; TEMP 36.6; O2SAT 97
[2024-09-21] MEDS: ertapenem 1,000 mg SDV 1000 MG IVP (10:45)
[2024-09-22] MEDS: ertapenem 1,000 mg SDV 1000 MG IVP (10:25)
[2024-09-23 10:36] VITALS: BP 157/81; PULSE 52; RESP 16; TEMP 36.8; O2SAT 97
[2024-09-23] MEDS: ertapenem 1,000 mg SDV 1000 MG IVP (10:40)
[2024-09-24] MEDS: alteplase 1 mg/mL SDV 2 mL 2 MG INTRACATH (10:45)
[2024-09-24] MEDS: ertapenem 1,000 mg SDV 1000 MG IVP (11:31)
[2024-09-24 11:42] VITALS: BP 175/84; PULSE 50; RESP 16; TEMP 36.8; O2SAT 96
[2024-09-25] MEDS: ertapenem 1,000 mg SDV 1000 MG IVP (10:08)
[2024-09-25 10:26] LABS: Hematocrit 35.4 % (37-53); Hemoglobin 12.20 g/dL (11.27-16.99); Mean Corpuscular HGB Conc 34.5 g/dL (30-55); Mean Corpuscular Hemoglobin 29.7 pg (27-33); Mean Corpuscular Volume 86.1 fl (82-101); Nucleated Red Blood Cells % 0 %; Platelet Count 152 10^3/cmm (157-399); Red Blood Count 4.11 10^6/uL (3.85-5.65); White Blood Count 4.38 10^3/uL (3.29-11.43)
[2024-09-25 10:35] VITALS: BP 168/78; PULSE 56; RESP 16; O2SAT 94
[2024-09-25 10:40] LABS: Alanine Aminotransferase 45 U/L (0-41); Albumin Level 3.8 g/dL (3.5-5.2); Alkaline Phosphatase 90 U/L (40-130); Anion Gap 14.1 (5-19); Aspartate Amino Transferase 23 U/L (0-40); Blood Urea Nitrogen 11 mg/dL (8-23); Calcium 8.4 mg/dL (8.5-10.5); Carbon Dioxide 25 mmol/L (22-29); Chloride 106 mmol/L (98-107); Globulin 2.6 g/dL (1.3-4.6); Glucose 88 mg/dL (65-115); Osmolality Calculated 291 mOsm/kg (285-295); Potassium 4.1 mmol/L (3.5-5.1); Sodium 141 mmol/L (136-145); Total Protein 6.4 g/dL (6.6-8.7)
[2024-09-26] MEDS: ertapenem 1,000 mg SDV 1000 MG IVP (09:50)
[2024-09-27] MEDS: ertapenem 1,000 mg SDV 1000 MG IVP (10:16)
== END 2024-10-18 23:59 | disposition home or self-care (01) ==
PROVIDERS: Internal Medicine Infectious Disease; PCP Family Medicine; Visit Provider Internal Medicine Medical Oncology
DX: C83.04 Small cell B-cell lymphoma, lymph nodes of axilla and upper limb (principal); G62.9 Polyneuropathy, unspecified; Z79.899 Other long term (current) drug therapy; Z87.891 Personal history of nicotine dependence; Z92.25 Personal history of immunosuppression therapy; D58.2 Other hemoglobinopathies
CPT/HCPCS: 80053; 85025; 96374; J1335; J2997

== ENCOUNTER → 2024-10-23 11:16 | Outpatient (BNVA) | payer OTHER, SELFPAY | PROVIDERS: PCP Family Medicine; Visit Provider Psychiatry & Neurology Psychiatry | DX: Z79.899 Other long term (current) drug therapy (principal) | CPT/HCPCS: 80061; 83036 ==

== ENCOUNTER 2024-10-25 11:08 | Oncology outpatient (recurring) (ONCR) | payer MEDICAID, SELFPAY ==
[2024-10-25 11:37] LABS: Hematocrit 38.8 % (37-53); Hemoglobin 13.10 g/dL (11.27-16.99); Mean Corpuscular HGB Conc 33.8 g/dL (30-55); Mean Corpuscular Hemoglobin 29.2 pg (27-33); Mean Corpuscular Volume 86.4 fl (82-101); Nucleated Red Blood Cells % 0 %; Platelet Count 150 10^3/cmm (157-399); Red Blood Count 4.49 10^6/uL (3.85-5.65); White Blood Count 4.20 10^3/uL (3.29-11.43)
[2024-10-25 11:57] LABS: Alanine Aminotransferase 21 U/L (0-41); Albumin Level 3.9 g/dL (3.5-5.2); Alkaline Phosphatase 90 U/L (40-130); Anion Gap 12.7 (5-19); Aspartate Amino Transferase 21 U/L (0-40); Blood Urea Nitrogen 20 mg/dL (8-23); Calcium 8.5 mg/dL (8.5-10.5); Carbon Dioxide 25 mmol/L (22-29); Chloride 106 mmol/L (98-107); Globulin 2.9 g/dL (1.3-4.6); Glucose 97 mg/dL (65-115); Osmolality Calculated 291 mOsm/kg (285-295); Potassium 4.7 mmol/L (3.5-5.1); Sodium 139 mmol/L (136-145); Total Protein 6.8 g/dL (6.6-8.7)
== END 2024-11-18 23:59 | disposition home or self-care (01) ==
PROVIDERS: Internal Medicine; PCP Family Medicine; Visit Provider Nurse Practitioner
DX: C83.00 Small cell B-cell lymphoma, unspecified site (principal); G62.9 Polyneuropathy, unspecified; R03.0 Elevated blood-pressure reading, without diagnosis of hypertension; Z79.899 Other long term (current) drug therapy; Z87.891 Personal history of nicotine dependence; Z92.25 Personal history of immunosuppression therapy
CPT/HCPCS: 36415; 80053; 83615; 85025; 99214

== ENCOUNTER → 2024-11-15 09:20 | Outpatient (BNVA) | payer MEDICAID, OTHER, SELFPAY ==
[2024-10-30 13:37] VITALS: BP 152/83; BMI 33.5
== END ==
PROVIDERS: PCP Family Medicine; Visit Provider Family Medicine
DX: Z12.5 Encounter for screening for malignant neoplasm of prostate (principal)
CPT/HCPCS: G0103

== ENCOUNTER 2025-01-24 12:27 | Oncology outpatient (recurring) (ONCR) | payer MEDICAID, SELFPAY ==
[2024-10-30 13:37] VITALS: BP 152/83; BMI 33.5
[2025-01-24 12:57] LABS: Hematocrit 41.8 % (37-53); Hemoglobin 14.40 g/dL (11.27-16.99); Mean Corpuscular HGB Conc 34.4 g/dL (30-55); Mean Corpuscular Hemoglobin 31.2 pg (27-33); Mean Corpuscular Volume 90.5 fl (82-101); Nucleated Red Blood Cells % 0 %; Platelet Count 125 10^3/cmm (157-399); Red Blood Count 4.62 10^6/uL (3.85-5.65); White Blood Count 5.85 10^3/uL (3.29-11.43)
[2025-01-24 13:09] LABS: Alanine Aminotransferase 29 U/L (0-41); Albumin Level 4.4 g/dL (3.5-5.2); Alkaline Phosphatase 75 U/L (40-130); Anion Gap 14.3 (5-19); Aspartate Amino Transferase 20 U/L (0-40); Blood Urea Nitrogen 17 mg/dL (8-23); Calcium 9.2 mg/dL (8.5-10.5); Carbon Dioxide 27 mmol/L (22-29); Chloride 106 mmol/L (98-107); Globulin 1.6 g/dL (1.3-4.6); Glucose 111 mg/dL (65-115); Osmolality Calculated 298 mOsm/kg (285-295); Potassium 4.3 mmol/L (3.5-5.1); Sodium 143 mmol/L (136-145); Total Protein 6.0 g/dL (6.6-8.7)
== END 2025-02-17 23:59 | disposition home or self-care (01) ==
PROVIDERS: PCP Family Medicine; Visit Provider Internal Medicine
DX: C83.00 Small cell B-cell lymphoma, unspecified site (principal)
CPT/HCPCS: 36415; 80053; 83615; 85025

== ENCOUNTER 2025-02-19 00:30 | Emergency (ER) | payer MEDICAID, SELFPAY ==
[2024-10-30 13:37] VITALS: BP 152/83; BMI 33.5
[2025-02-19] VITALS (7 sets, daily range): BP systolic 148–159; BP diastolic 77–98; PULSE 49–71; RESP 18; TEMP 36.6; O2SAT 53–96; BMI 33.4
--- OUTSIDE RECORDS SUMMARY | 2025-02-19 00:38 | XMS_ITS | Data Portability ---
[facility] Address [address] [address] Assessment No assessment recorded. Plan of Treatment Reminders Order Date Submit Date Provider Last Modified By Organization Details Last Modified Time Details Appointments None record ed. Lab None record ed. Referral None record ed. Procedures None record ed. Surgeries None record ed. Imaging None record ed. Medication Orders None record ed. Patient TargetsNo targets recorded. Patient InstructionsNo instructions recorded. Reason for Referral None Reported. Problems Name Problem SNOMED Code Status Onset Date Resolution Date Notes Provider Name and Address Organization Details Recorded Time Anemia 561758392 Active 2018 ANEMIA; 9 9:40AM by Jillian Nye CMT, Office Visit; Promoted; acuity set as *; Not Available [facility] 3 03:07:39 Malignant lymphoma of extranodal AND/OR solid organ site 16693196 Active 2018 LYMPHOMA; Story: Dx May 2017; Recorded 9 10:18AM by HAILEY Child, Office Visit; Promoted; acuity set as *; Not Available [facility] 3 03:07:39 Bipolar I disorder 212029859 Active 2018 BIPOLAR 1 DISORDER; 9 9:37AM by Jillian Nye CMT, Office Visit; Promoted; acuity set as *; Not Available [facility] 3 03:07:40 Problem Notes None recorded. Medical Equipment None Reported. Allergies Allergen ID Allergen Name Allergen Category Reaction Reaction Severity Criticality Documentation Date Start Date Code Code System Note Provider Name and Address Organization Details Recorded Time 18597 Geodon medicatio n Not available Not available Not available 10/16/2022 29605 4 RxNorm Comme nt: Recor ded 05/20 9:38A M by Susan mas CMT, Offic e Visit ; Suki salvador; Katty vance ce: *; Reaso n: Drug aller gy; ; Not Available [facility] 3 02:26:54 Medications Name Sig Start Date Stop Date Status Note LastModified by Organization Details LastModified Time divalproe x 500 mg tablet,de layed release TAKE 1 TABLET BY MOUTH TWICE A DAY active Not Available Not Available No t Available ciproflox acin 500 mg tablet TAKE ONE TABLET BY MOUTH EVERY 12 HOURS active Not Available Not Available No t Available hydrocodo ne 7.5 mg-acetam inophen 325 mg tablet TAKE ONE TABLET BY MOUTH EVERY 6 HOURS NEEDED FOR PAIN 09/07 completed Not Available Not Available Not Available docusate sodium 100 mg capsule TAKE ONE CAPSULE BY MOUTH TWICE DAILY 09/07 completed Not Available Not Available Not Available aripipraz ole 10 mg tablet take one tablet by mouth every day active Not Available Not Available No t Available bupropion HCl XL 150 mg 24 hr tablet, extended release take one tablet by mouth every day active Not Available Not Available No t Available metronida zole three times daily [address] Contreras DOC; Recorded 05/21/19 19 10:15AM by HAILEY Child, Office Visit; Refill Quantity : 0; Not Available Not Available Not Available Depakote two times daily active 0; Recorded 05/21/19 19 9:39AM by Jillian Nye CMT, Office Visit; Not Available Not Available Not Available ClearLax 17 gram/dose oral powder DISSOLVE 17grams in liquid AND drink DAILY 09/07 completed Not Available Not Available Not Available Brukinsa 80 mg capsule TAKE TWO CAPSULES BY MOUTH DAILY active Not Available Not Available No t Available Vitals Date Recorded Body weight Body mass index (BMI) Body height Body temperature Heart rate Oxygen saturation Systolic And Diastolic Provider Name and Address Organization Details Last Updated DateTime 5 727428. 08 g 35.5 kg/m2 179.07 cm 98.2 [degF] 55 /min 96 % 160/88 mm[Hg] Cheyenne Vigil [facility], .[facility] 5 14:09:48 Social History Question Answer Notes LastModified by Organizat ion Details LastModified Time Tobacco Smoking Status Never Smoker Cheyenne Vigil [facility], [facility] 09/07/2024 14:04:17 What Was The Date Of Your Most Recent Tobacco Screening? 09/07/2024 [email or web address] Information not available 09/07/2024 Sex: Unknown Functional Status None recorded. Mental Status None recorded. Family History Nothing Reported. Medical History No medical history recorded. Immunizations Vaccine Type Date Status Note Provider Nam e and Address Organization Details Recorded Time Td (adult), 2 Lf tetanus toxoid, preservative free, adsorbed 6 completed Not Available [facility] 09/07/2024 13:57:45 Tdap 1 completed Not Available [facility] 09/07/2024 13:57:45 COVID-19, mRNA, LNP-S, PF, 100 mcg/0.5mL dose or 50 mcg/0.25mL dose 1 completed Not Available [facility] 09/07/2024 13:57:45 Past Encounters Encounter ID Performer Location Encounter Start Date Encounter Closed Date Diagnosis/Indication Diagnosis SNOMED-CT Code Diagnosis ICD10 Code Diagnosis IMO Codes Diagnosis Note [id number] HAILEY GOMEZ [facility] ([facility] [address] [place] [id number] 09/07/2024 13:56:17 09/07/2024 14:52:57 Persistent testicular pain 545954766 N50.819 [id number] Patient is complainin g of severe testicular pain. Will send to ER for further evaluation and treatment. Health Concerns Section Related Observation LastModified by Organization Detai ls LastModified Time None Recorded Concern Status LastModified by Organization Details LastModified Time None Recorded Advance Directives Directive None Recorded Payers Insurance Date Sequence Insurance Name Policy Number Policy Harrison Covered Member ID Harrison Member ID Guarantor Name 09/10/2024 [place] [facility] Kannan [place] [id number] Kannan [place] 09/07/2024 1 [place] Kannan [place] [id number] Kannan [place] Notes Date Note Type Note Provider Name and Address Organization Details Recorded Time 09/07/2024 text/html ROS as noted in the HPI walk in ptPT is having swelling in right testicle for 3 weeks. Went to the dr and was given cipro 08/31 even though UA did not show UTI. Had ultrasound 09/03 and was told he had fluid on right testicle. Swelling and pain is becoming worse and is having numbness in right leg. Patient states that he has been compliant with medication use. HAILEY GOMEZ [address] [place] [address], [phone], [facility] 09/07/2024 14:46:29
--- OUTSIDE RECORDS SUMMARY | 2025-02-19 00:39 | XMS_ITS | Encounter Summary ---
Author Organization [facility] Address [address] [place] [address] Care Team Providers Care Correctional Captain Name Role Phone Unavailable Primary Care Provider Unavailabl e Encounter Details Date Type Department Care Team (Late st Contact Info) Description 02/12/2025 External Device Data [facility]STRACTION Provider, Abstract NO ADDRESS ON FILE Social History Tobacco Use Types Packs/Day Years Used Date Smoking Tobacco: Unknown Feeling Safe Answer Date Recorded Are you in a relationship wi th someone who hurts you emotionally and/or physically? No 09/11/2024 Food Insecurity Answer Date Recorded Patient needs follow up regardin 09/12/2024 Transportation Needs Answer Date Record ed Patient needs follow up regardin 09/12/2024 Utility Needs Answer Date Recorded Patient needs follow up regardin 09/12/2024 Sex and Gender Information Value Date Recorded Sex Assigned at Male 10/05/2024 9:51 PM CDT Legal Sex Male 3:34 PM CDT Gender Identity Male 10/05/2024 9:51 PM CDT Sexual Orientation Straight 10/05/2024 9: 51 PM CDT documented as of this encounter Plan of Treatment Not on file documented as of this encounter Visit Diagnoses Not on filedocumented in this encounter
--- OUTSIDE RECORDS SUMMARY | 2025-02-19 00:39 | XMS_ITS | Clinical Summary ---
Author Organization [facility] Address [address] [place] [address] Phone Care Team Providers Care Rock Star Name Role Phone Unavailable Primary Care Provider Unavailabl e Allergies Active Allergy Reactions Criticality Noted Date Comments Ziprasidone Hcl Arrhythmia High 09/11/2024 Medications zanubrutinib 80 mg capsule Take 80 mg by mouth daily. Two capsules daily. Recommends to not take while taking ABX. Active ARIPiprazole (ABILIFY) 10 mg tablet Take 10 mg by mouth daily. Active divalproex (DEPAKOTE) 500 mg delayed release tablet Take 500 mg by mouth 2 times daily. Active buPROPion (WELLBUTRIN) 100 mg tablet Take 150 mg by mouth daily. Active Active Problems Problem Noted Date Diagnosed Date Testicular mass 09/14/2024 Orchitis 09/12/2024 Mood disorder 09/12/2024 Marginal zone lymphoma 09/12/2024 Obesity 09/12/2024 Depression 09/12/2024 Encounters Date Type Department Care Team Description 02/12/2025 External Device Data [facility] ABSTRACTION Provider, Abstract 02/05/2025 External Device Data [facility] ABSTRACTION Provider, Abstract 02/05/2025 External Device Data [facility] ABSTRACTION Provider, Abstract 01/09/2025 External Device Data [facility] ABSTRACTION Provider, Abstract 12/25/2024 External Device Data [facility] ABSTRACTION Provider, Abstract 12/25/2024 External Device Data [facility] ABSTRACTION Provider, Abstract 12/04/2024 External Device Data [facility] ABSTRACTION Provider, Abstract 11/20/2024 External Device Data [facility] ABSTRACTION Provider, Abstract 11/20/2024 External Device Data [facility] ABSTRACTION Provider, Abstract 11/20/2024 External Device Data [facility] ABSTRACTION Provider, Abstract from Last 3 Months Social History Tobacco Use Types Packs/Day Years Used Date Smoking Tobacco: Unknown Tobacco Cessation:Counseling Given: Not Answered Feeling Safe Answer Date Recorded Are you [...] Orientation Straight 10/05/2024 9: 51 PM CDT Last Filed Vital Signs Vital Sign Reading Time Taken Comments Blood Pressure 137/75 09/18/2024 3:38 PM CDT Pulse 55 09/18/2024 3:38 PM CDT Temperature 36.7 C (98.1 F) 09/18/2024 3:38 PM CDT Respiratory Rate 16 09/18/2024 3:38 PM CDT Oxygen Saturation 94% 09/18/2024 3:38 PM CDT Inhaled Oxygen Concentration - - Weight 111.8 kg (246 lb 7.6 oz) 025 11:28 PM CDT Height 177.8 cm (5' 10 ) 09/11/2024 11: 28 PM CDT Body Mass Index 35.37 09/11/2024 11:28 PM CDT Plan of Treatment Health Maintenance Due Date Last Done Comments Pre-Diabetes and Diabetes Screening 1965 COLORECTAL SCREENING 2009 Colorectal Cancer Screening 2009 FIT-DNA Q 3 years 2009 FIT/FOBT Q 1 year 2009 Flex Sig/CT Colonography Q 5 years 2009 ZOSTER VACCINE (1 of 2) 2014 DTAP/TDAP/TD VACCINES (2 - T d or Tdap) 07/29/2020 07/29/2010, 05/16/2005 INFLUENZA VACCINE (#1) 2024 08/16/2017 COVID-19 Vaccine (2 2024-2 6 season) 2024 03/19/2021 RSV VACCINE (60+ or ) (1 - 1-dose 75+ series) 07/23/2039 HEPATITIS B VACCINES Aged Out No long er eligible based on patient's age to complete this topic Insurance [place]ICAID [place] Advance Directives For more information, please contact: [phone] * Full Code (Latest Code Status on File) Date Activated Date Inactivated Comments 09/11/2024 11:34 PM 09/18/2024 11:00 PM
--- NOTE | 2025-02-19 01:35 | USR_ITS ---
PROCEDURE INFORMATION: Exam: US Duplex Right Lower Extremity Veins, Limited Exam date and time: 02/19/2025 2:48 AM Age: 59 years old Clinical indication: Swelling (edema) of limb; Lower extremity, right; Additional info: Rle numbness/swelling, HX lymphoma, R/O dvt TECHNIQUE: Imaging protocol: Real-time duplex ultrasound of the right extremity with 2-D hadley scale, color Doppler flow and spectral waveform analysis including responses to compression and other maneuvers (when performed) with image documentation. Limited exam was focused on the right lower extremity veins. COMPARISON: US soft tissue/extremity [id number] 07/07/2018 9:56 AM FINDINGS: Right deep veins: Unremarkable. The common femoral, femoral, proximal profunda femoral and popliteal veins are patent without thrombus. Normal Doppler waveforms. Normal compressibility and/or augmentation response. Superficial veins: Greater saphenous vein at the saphenofemoral junction is patent without thrombus. Soft tissues: Unremarkable. US/[place] [id number] IMPRESSION: No evidence of deep vein thrombosis.
--- NOTE | 2025-02-19 02:22 | W.ED.EXTPRO ---
HPI - Extremity Problem General: Chief complaint: Extremity Injury, Lower Stated complaint: Swelling in Rt Leg Time Seen by Provider: 02/19/25 01:20 History of Present Illness: 59-year-old male history of B-cell lymphoma on oral chemotherapy, presenting to the emergency department with 4-day history of swelling to the right leg no significant pain,occasional numbness/paresthesia sensation, reportedly spoke with his oncologist this evening who recommended they come to the ER for evaluation. Patient is not on a blood thinner, he denies any falls or trauma to the leg, denies fever, denies open wounds or lacerations. Related Data Home Medications ?Medication ?Instructions ?Recorded ?Confirmed divalproex 500 mg tablet,delayed 1,000 mg PO DAILY 08/11/22 01/24/25 release (Depakote) aripiprazole 10 mg tablet 10 mg PO 1XD 11/24/23 01/24/25 bupropion HCl 150 mg 24 hr tablet, 150 mg PO 1XD 11/24/23 01/24/25 extended release Previous Rx's ?Medication ?Instructions ?Recorded orthopedic shoes with custom #1 ea 01/02/24 accomodative insoles sole supports #1 ea 04/02/24 zanubrutinib 160 mg tablet 160 mg PO DAILY #30 tabs 01/24/25 Allergies Allergy/AdvReac Type Severity Reaction Status Date / Time ziprasidone (From [place]) Allergy Unknown ADR/ALGY-Pa Verified 02/19/25 00:55 lpitations PFSH ED PFSH: Medical History Psychiatric care Marginal zone lymphoma Bipolar disorder Depression Surgical History Hx of umbilical hernia repair 12/20/23 Dr Armando History of lymph node biopsy (07/24/18) Left axillary lymph node biopsy History of bone marrow biopsy (05/04/18) History of bone marrow biopsy (08/24/17) History of vasectomy Family History Father Cancer Asbestosis Lung disease Mother Psychiatric illness Bipolar Suicide Denies family history of Diabetes CAD (coronary artery disease) Clotting disorder Dementia Hyperlipidemia Chronic kidney disease (CKD) Anesthesia complication Bleeding disorder Hypertension Stroke Social History Smoking and tobacco/nicotine status: never used tobacco/nicotine Second hand smoke exposure: No Alcohol intake: never Substance/Drug Use: never Caregiver/support person: No Lives independently: No Household members: other Details: lives with 5 other people Housing: Other Details: [facility] Marital status: Single Number of children: 0 Highest education level completed: Bachelor's Degree Education level details: Psycology service: No Current occupational status: disabled Pets and animals: Yes Pets & animals: cat(s) and dog(s) Leisure activites: art and other Leisure activities details: Writing Sexually active: No Do you think of yourself as: Straight/Heterosexual Current gender identity: Male Swetha/Anglican: Presbyterian Special swetha needs: No Agree to transfusion: Yes Physical Exam Narrative: EXAM NARRATIVE: Gen: A&Ox4, no acute distress, nontoxic appearing HEENT: Normocephalic, atraumatic, no scleral icterus, external ears normal, moist mucous membranes Neck: Supple, full range of motion, no observable masses Lungs: No Respiratory distress, Lungs clear to auscultation bilaterally no rales, rhonchi, wheezing CV: Regular rate and rhythm, no murmur, no pitting edema to lower extremities bilaterally Abdomen: Soft, nondistended, nontender to palpation MSK: No joint swelling, FROM all 4 extremities, normal DP and PT palpable pulses to the right lower extremity, mild increased calf diameter right lower extremity as compared to left lower extremity, distal extremities warm and well-perfused Skin: No rashes, petechiae, lesions. Normal color per patient. Neuro: Alert and oriented, no slurred speech, sensation and strength grossly intact all 4 extremities Psych: Appropriate for situation. Course Vital Signs: Vital signs: Vital Signs Temperature 97.8 F 02/19/25 00:43 Pulse Rate 49 L 02/19/25 03:30 Respiratory Rate 18 02/19/25 00:43 Blood Pressure 154/95 02/19/25 01:33 Pulse Oximetry 92 02/19/25 03:30 Oxygen Delivery Me thod Room Air 02/19/25 03:30 MDM - Extremity (Nontraumatic) Medical Decision Making 59-year-old male on chronic oral therapy for B-cell lymphoma presenting to the emergency department with a 4-day history of numbness and mild swelling to the right leg, sent in by oncologist for evaluation, no concern for arterial ischemia/acute limb ischemia, no concern for CVA, plan for venous ultrasound of the right leg to assess for DVT, reassess for disposition but anticipate discharge with follow-up with oncology for further evaluation with initiation of anticoagulation if DVT proximal to the popliteal fossa is identified. Lab Data Radiology Impressions Venous Duplex 02/19/25 01:35 IMPRESSION: No evidence of deep vein thrombosis. All radiology interpretation(s) finalized by discharge ED provider radiology interpretation(s): Ultrasound of the right lower extremity negative for DVT Discharge Plan Discharge Patient Disposition: Home Clinical Impression: Right leg swelling Condition: Stable Prescriptions: No Action divalproex [Depakote] 500 mg tablet,delayed release (DR/EC) 1,000 mg PO DAILY bupropion HCl 150 mg tablet extended release 24 hr 150 mg PO 1XD aripiprazole 10 mg tablet 10 mg PO 1XD (DME) sole supports See Rx Instructions .Route .MEDSUPPLY Qty: 1 0RF Rx Instructions: As directed (DME) orthopedic shoes with custom accomodative insoles See Rx Instructions .Route .MEDSUPPLY Qty: 1 0RF Rx Instructions: As directed zanubrutinib 160 mg tablet 160 mg PO DAILY Qty: 30 0RF Discharge Orders: Discharge ED (Routine); Ordered 02/19/25 Ordered By: Jamison Michael Patient Instructions: Patient Portal & Dione Instructions, Leg Edema (ED) Print Language: Amharic Coding Level of Care Code ED Ladies Suit Operator for José Miguel Gordillo
== END 2025-02-19 04:23 | disposition home or self-care (01) ==
PROVIDERS: Emergency Provider Student in an Organized Health Care Education/Training Program
DX: R22.41 Localized swelling, mass and lump, right lower limb (principal)
CPT/HCPCS: 93971; 99284